=== PATIENT | female | born 1960 | race Caucasian/White ===

== ENCOUNTER → 2020-06-22 10:42 | Outpatient (BNVA) | payer OTHER, SELFPAY | PROVIDERS: PCP Nurse Practitioner Family; Referring Provider Family Medicine; Visit Provider Nurse Practitioner | DX: Z13.89 Encounter for screening for other disorder (principal) | CPT/HCPCS: Q3014 ==

== ENCOUNTER 2020-06-25 11:59 | Outpatient (REF) | payer OTHER, MEDICARE, SELFPAY | END 2020-06-25 12:00 | disposition home or self-care (01) | LOC: HO.LAB 11:59 | PROVIDERS: Visit Provider Internal Medicine | DX: Z20.828 Contact with and (suspected) exposure to other viral communicable diseases (principal) | CPT/HCPCS: C9803; U0003 ==

== ENCOUNTER 2020-08-02 15:34 | Outpatient (REF) | payer OTHER, SELFPAY | END 2020-08-02 15:35 | disposition home or self-care (01) | LOC: HO.LAB 15:34 | PROVIDERS: PCP Family Medicine; Visit Provider Internal Medicine | DX: Z20.822 Contact with and (suspected) exposure to COVID-19 (principal) | CPT/HCPCS: 36415; C9803; U0003 ==

== ENCOUNTER 2020-08-20 10:00 | Outpatient (RCR) | payer OTHER, SELFPAY | END 2020-08-20 10:45 | disposition other institution (70) | LOC: HO.PT 10:00 | PROVIDERS: PCP Family Medicine; Visit Provider Family Medicine | DX: M25.562 Pain in left knee (principal) | CPT/HCPCS: 97110; 97140; 97162; 97530 ==

== ENCOUNTER 2020-11-03 14:13 | Outpatient (REF) | payer OTHER, SELFPAY ==
--- NOTE | ~2020-11-03 | MM_ITS ---
EXAMINATION: MM DIAGNOSTIC DIGITAL BREAST TOMOSYNTHESIS, RIGHT US DIAGNOSTIC ULTRASOUND BREAST, RIGHT CLINICAL INFORMATION: Right breast pain for one month. Palpable fullness axilla. The lifetime risk of breast cancer based on the Tyrer-Cuzick Model is 8%. COMPARISON: Mammography: 03/01/2020, 02/24/2019, 02/19/2018 TECHNIQUE: Digital breast tomosynthesis is performed in both the craniocaudal and mediolateral oblique views along with computer-aided detection (CAD). Synthesized 2D images are generated from the tomosynthesis. Ultrasound right breast is targeted to the areas of clinical concern upper outer quadrant and axilla. Grayscale imaging and color Doppler are performed without and with harmonics. FINDINGS: There are scattered areas of fibroglandular density (ACR BI-RADS breast composition Category b). Fibroglandular and stromal densities are stable when compared with prior studies. There is no developing density or interval mass or architectural abnormality. No abnormal calcifications. No skin thickening or coarsening of the Julio Cesar's ligaments. Right axillary nodes are stable. No interval lymphadenopathy. Ultrasound demonstrates no cystic or solid mass or architectural abnormality. No lymphadenopathy. There is no skin thickening or edema tracking in the soft tissue planes. Results are discussed with the patient at time of visit. MM/MM tomosynthesis diagnostic RT IMPRESSION: 1. No mammographic evidence of malignancy or inflammatory changes. 2. Unremarkable ultrasound right breast and axilla. ASSESSMENT: BI-RADS 1: Negative RECOMMENDATION: 1. Patient should be managed based on the clinical impression. 2. Otherwise, routine annual screening mammography. This patient's information was entered into a reminder system with a target due date for their next mammogram.
== END 2020-11-03 14:14 | disposition home or self-care (01) ==
LOC: HO.MAMMO 14:13
PROVIDERS: Visit Provider Emergency Medicine
DX: N64.4 Mastodynia (principal); R22.31 Localized swelling, mass and lump, right upper limb
CPT/HCPCS: 76642; 77061; 77065

== ENCOUNTER → 2021-01-17 10:26 | Outpatient (BNVA) | payer OTHER, SELFPAY | PROVIDERS: PCP Family Medicine; Referring Provider Family Medicine; Visit Provider Nurse Practitioner | DX: K21.9 Gastro-esophageal reflux disease without esophagitis (principal); Z87.19 Personal history of other diseases of the digestive system; Z83.71 Family history of colonic polyps; Z98.890 Other specified postprocedural states | CPT/HCPCS: 99212 ==

== ENCOUNTER 2021-04-29 12:17 | Outpatient (REF) | payer OTHER, SELFPAY ==
--- NOTE | ~2021-04-29 | MM_ITS ---
EXAMINATION: BONE DENSITOMETRY CLINICAL INDICATION: Encounter for screening for osteoporosis. COMPARISON: None (current study represents initial baseline exam). TECHNIQUE: Using a [employer] DXA System (software version: 13.1) manufactured by [employer], dual-energy x-ray absorptiometry was performed of the lumbar spine and left hip. The images are of good technical quality. Summary results are attached. FINDINGS: AP SPINE L1-L2 (excluding L3 and L4): The data of L1-L4 has been changed to exclude the L3 and L4 vertebral bodies, because degenerative changes L3 and hardware at L3-L4 may cause overestimation of lumbar spine density. BMD 1.268 g/cm2, Z-score 1.2, T-score 0.9, normal. LEFT FEMUR, NECK: BMD 0.824 g/cm2, Z-score -0.8, T-score -1.5, osteopenia. LEFT FEMUR, TOTAL: BMD 0.973 g/cm2, Z-score 0.1, T-score -0.3, normal. IDENTIFIED RISK FACTORS: Rheumatoid arthritis, recurrent falls, height loss. Early menopause, secondary osteoporosis. HISTORY OF FRACTURE: None listed. MEDICATIONS: Calcium supplements or multivitamin, vitamin D. MM/XR DEXA axial skeleton IMPRESSION: 1. DIAGNOSIS: Osteopenia based on the lowest T-score value of -1.5 in the femoral neck applying World Health Organization criteria. 2. 10-YEAR FRACTURE RISK PREDICTION, FRAX: Major osteoporotic fracture (clinical spine, forearm, hip or shoulder) 5.1%. Hip fracture 0.4%. 3. Treatment Recommendations: NOF guidelines recommend consideration for treatment in postmenopausal women and men age 50 and older presenting with the following: -A hip or vertebral (clinical or morphometric) fracture. -T-score less than or equal to -2.5 at the femoral neck or spine after appropriate evaluation to exclude secondary causes. -Low bone mass at the hip or spine and a 10-year fracture probability by FRAX of greater than or equal to 3% for hip fracture or greater than or equal to 20% for major osteoporotic fracture based on the [place] adapted WHO algorithm. 4. Other Recommendations: All treatment decisions require clinical judgment and consideration of individual patient factors, including patient preferences, comorbidities, previous drug use, risk factors not captured in the FRAX model (e.g. frailty, falls, vitamin D deficiency, increased bone turnover, interval significant decline in bone density) and possible under or overestimation of fracture risk by FRAX. Additional medical evaluation for secondary cause of low bone mineral density may be appropriate. FUTURE SCAN RECOMMENDATION: People with diagnosed cases of osteoporosis or at high risk for fracture should have regular bone mineral density tests. For patients eligible for Medicare, routine testing is allowed once every 2 years. The testing frequency can be increased to one year for patients who have rapidly progressing disease, those who are receiving or discontinuing medical therapy to restore bone mass, or have additional risk factors.
== END 2021-04-29 12:18 | disposition home or self-care (01) ==
LOC: HO.MAMMO 12:17
PROVIDERS: PCP Family Medicine; Visit Provider Advanced Practice Midwife
DX: Z13.820 Encounter for screening for osteoporosis (principal); B20 Human immunodeficiency virus [HIV] disease; N95.1 Menopausal and female climacteric states
CPT/HCPCS: 77080

== ENCOUNTER → 2021-05-27 15:25 | Outpatient (BNVA) | payer OTHER, SELFPAY | PROVIDERS: PCP Family Medicine; Visit Provider Nurse Practitioner | DX: K21.9 Gastro-esophageal reflux disease without esophagitis (principal); Z87.19 Personal history of other diseases of the digestive system; Z83.71 Family history of colonic polyps | CPT/HCPCS: Q3014 ==

== ENCOUNTER 2021-10-24 14:13 | Outpatient (REF) | payer OTHER, SELFPAY ==
--- NOTE | ~2021-10-24 | MM_ITS ---
EXAMINATION: MM SCREENING DIGITAL BREAST TOMOSYNTHESIS, BILATERAL CLINICAL INFORMATION: Screening. Asymptomatic. The lifetime risk of breast cancer based on the Tyrer-Cuzick Model is 7%. COMPARISON: Mammography: 11/03/2020, 03/01/2020, 02/24/2019, 02/19/2018 TECHNIQUE: Digital breast tomosynthesis is performed in both the craniocaudal and mediolateral oblique views along with computer-aided detection (CAD). Synthesized 2D images are generated from the tomosynthesis. Additional right MLO view is provided. FINDINGS: There are scattered areas of fibroglandular density (ACR BI-RADS breast composition Category b). There are scattered bilateral fibroglandular densities similar to prior studies. Breast tissue composition borders on predominantly fatty. There is no developing density or interval mass or architectural abnormality. No abnormal calcifications. The skin contours are within the axilla are unremarkable. No significant changes. MM/MM tomosynthesis screening BI IMPRESSION: No mammographic evidence of malignancy. ASSESSMENT: BI-RADS 2: Benign RECOMMENDATION: Routine annual mammography screening. This patient's information was entered into a reminder system with a target due date for their next mammogram.
== END 2021-10-24 14:14 | disposition home or self-care (01) ==
LOC: HO.MAMMO 14:13
PROVIDERS: PCP Family Medicine; Visit Provider Family Medicine
DX: Z12.31 Encounter for screening mammogram for malignant neoplasm of breast (principal)
CPT/HCPCS: 77063; 77067

== ENCOUNTER 2022-06-02 10:07 | Outpatient (REF) | payer OTHER, SELFPAY ==
--- NOTE | ~2022-06-02 | MR_ITS ---
EXAMINATION: MR BRAIN WITHOUT CONTRAST CLINICAL INFORMATION: New onset memory impairment. COMPARISON: None available. TECHNIQUE: MRI of the brain was obtained using routine sequences without contrast. FINDINGS: No focal restricted diffusion is demonstrated to suggest acute or subacute cerebral ischemia. No evidence of acute or chronic hemorrhagic products on heme-sensitive imaging. Scattered periventricular and deep white matter T2 FLAIR hyperintensities most commonly seen with mild underlying microangiopathy. The ventricles are normal in morphology and size. No abnormal mass effect. No midline shift. Normal appearance of the pituitary gland. Normal positioning of the cerebellar tonsils. Normal arterial and venous vascular flow voids are present. Normal, homogeneous marrow signal. Mild mucosal thickening of the paranasal sinuses. No signal abnormalities within the mastoids. MR/MR head/brain wo con IMPRESSION: 1. No acute intracranial abnormalities. 2. Mild nonspecific white matter changes most commonly seen with mild underlying microangiopathy.
== END 2022-06-02 10:08 | disposition home or self-care (01) ==
LOC: HO.MRI 10:07
PROVIDERS: Visit Provider Family Medicine
DX: G31.84 Mild cognitive impairment of uncertain or unknown etiology (principal)
CPT/HCPCS: 70551

== ENCOUNTER → 2022-06-13 12:18 | Outpatient (REF) | payer OTHER, SELFPAY | LOC: HO.SL 12:18 | PROVIDERS: PCP Family Medicine; Visit Provider Psychiatry & Neurology Neurology | DX: G47.33 Obstructive sleep apnea (adult) (pediatric) (principal); G31.84 Mild cognitive impairment of uncertain or unknown etiology | CPT/HCPCS: 95806 ==

== ENCOUNTER 2022-11-28 12:45 | Emergency (ER) | payer OTHER, SELFPAY ==
--- NOTE | ~2022-11-28 | CT_ITS ---
EXAMINATION: CT HEAD WITHOUT CONTRAST CLINICAL INFORMATION: Headache, dizziness and hypertension COMPARISON: Previous brain MRI May 2022 TECHNIQUE: Contiguous axial imaging was performed from the skull base to vertex without intravenous administration of contrast. This CT examination was performed using dose optimization techniques as appropriate, variously including the following: *Automated exposure control *Adjustment of mA and/or kV according to patient size (this includes techniques or standardized protocols for targeted exams where dose is matched to indication/reason for exam; i.e. extremities or head) *Use of iterative reconstruction technique DLP: 624 mGy-cm FINDINGS: There is no evidence of an extra-axial collection. There is no evidence of intra or extra-axial hemorrhage. The ventricles and extra-axial CSF spaces are appropriate. Lemus-white matter differentiation is normal. No mass, mass effect or infarct. Review of bone windows is normal. Paranasal sinuses mastoid air cells and middle ears are clear. CT/CT head/brain wo IV con IMPRESSION: Unremarkable exam.
--- NOTE | 2022-11-28 12:51 | ED_ITS ---
HPI - General Adult General Chief complaint: General Medical <BRINDA Staples - Last Filed: 11/28/22 12:56> Stated complaint: high bp <BRINDA Staples - Last Filed: 11/28/22 12:56> Time Seen by Provider: 11/28/22 18:13 <BRINDA Staples - Last Filed: 11/28/22 12:56> Source: patient, RN notes reviewed and buttermaker continuous churn <Taco Thurston - Last Filed: 11/28/22 19:57> Mode of arrival: ambulatory <Taco Thurston - Last Filed: 11/28/22 19:57> Limitations: language barrier <Taco Thurston - Last Filed: 11/28/22 19:57> History of Present Illness HPI narrative: 61-year-old female past medical history significant for hypertension, IBS, GERD presents for evaluation of a headache. patient reports that she woke up this morning with a global headache. She reports she had some associated dizziness and some mild chest pain which has since resolved she checked her blood pressure earlier and found to be as high as 189/90. She reports having taken her amlodipine for her blood pressure earlier this morning denies any weakness, difficulty speaking <Taco Thurston - Last Filed: 11/28/22 19:57> Related Data Home medications: Home Medications Medication Instructions Recorded Confirmed albuterol sulfate 90 mcg/actuation 0 mcg inhalation 01/17/21 aerosol inhaler fluticasone propionate 230 2 puff inhalation BID 01/17/21 mcg-salmeterol 21 mcg/actuation HFA inhaler hydrochlorothiazide 25 mg tablet 25 mg PO DAILY 01/17/21 lidocaine 5 % topical ointment topical 01/17/21 loratadine 10 mg tablet 10 mg PO DAILY 01/17/21 naproxen 375 mg tablet 0 mg PO 01/17/21 zolpidem 10 mg tablet 10 mg PO BEDTIME PRN 01/17/21 amlodipine 10 mg tablet 10 mg PO DAILY 05/27/21 ascorbic acid (vitamin C) 500 mg 500 mg PO BID 05/27/21 tablet (Vitamin C) cholecalciferol (vitamin D3) 50 50 mcg PO DAILY 05/27/21 mcg (2,000 unit) tablet cyanocobalamin (vitamin B-12) 1,000 mcg PO DAILY 05/27/21 1,000 mcg tablet diazepam 5 mg tablet 5 mg PO TID PRN muscle spasm 05/27/21 fluticasone 250 mcg-salmeterol 50 1 ea inhalation BID 05/27/21 mcg/dose blistr powdr for inhalation fluticasone propionate 50 spray intranasal 05/27/21 mcg/actuation nasal spray,suspension montelukast 10 mg tablet 10 mg PO DAILY 05/27/21 tramadol 50 mg tablet 50 mg PO TID PRN 05/27/21 Previous Rx's Medication Instructions Recorded ipratropium 0.5 mg-albuterol 3 mg 3 ml inhalation Q4-6H PRN wheezing 08/26/20 (2.5 mg base)/3 mL nebulization 30 days #270 mL soln lipase 3,000-protease 1 cap PO .TIDAC 30 days #90 caps 01/17/21 9,500-amylase 15,000 unit capsule, delayed rel (Creon) docusate sodium 100 mg capsule 100 mg PO .DAILY WITH FOOD PRN 05/27/21 (Colace) constipation 30 days #30 caps famotidine 40 mg tablet 40 mg PO BEDTIME 30 days #30 tabs 05/27/21 psyllium husk (aspartame) 3.4 1 ea PO BID #1,040 grams 05/27/21 gram/5.8 gram oral powder (Metamucil Sugar-Free (aspartame)) fkzoyqdvpt-dyrtyyolkffhv-fykbfibo 1 cap PO TID PRN headache #15 caps 11/28/22 50 mg-300 mg-40 mg capsule (Fioricet) <BRINDA Staples - Last Filed: 11/28/22 12:56> Allergies/adverse reactions: Allergies Allergy/AdvReac Type Severity Reaction Status Date / Time Penicillins [PENICILLINS] Allergy Intermediate ITCHING Verified 05/27/21 15:28 sulfamethoxazole Allergy Intermediate RASH Verified 05/27/21 15:28 [From BACTRIM] trimethoprim [From BACTRIM] Allergy Intermediate RASH Verified 05/27/21 15:28 morphine [Morphine] Allergy Mild THROAT Verified 05/27/21 15:28 SWELLING Sulfa (Sulfonamide Allergy Mild RASH/HEADAC Verified 05/27/21 15:28 Antibiotics) HE acetaminophen [Percocet] Allergy Unknown redness, Verified 05/27/21 15:28 swelling, itchy oxycodone [Percocet] Allergy Unknown redness, Verified 05/27/21 15:28 swelling, itchy Biaxin Allergy Unknown itchy Uncoded 06/22/20 10:50 <BRINDA Staples - Last Filed: 11/28/22 12:56> Review of Systems Constitutional: Constitutional: Reports as per HPI, Denies chills, Denies fatigue, Denies fever(s) and Reports headache(s) <Taco Thurston - Last Filed: 11/28/22 19:57> ENT: Reports headache(s) <Taco Thurston - Last Filed: 11/28/22 19:57> Cardiovascular: Cardiovascular: Reports chest pain and Denies dyspnea <Taco Thurston - Last Filed: 11/28/22 19:57> Respiratory: Respiratory: Denies cough and Denies dyspnea <Taco Thurston - Last Filed: 11/28/22 19:57> Gastrointestinal: Gastrointestinal: Denies abdominal pain, Denies constipation and Denies vomiting <Taco Thurston - Last Filed: 11/28/22 19:57> Genitourinary: Genitourinary: Denies dysuria <Taco Thurston - Last Filed: 11/28/22 19:57> Neurologic: Reports headache(s) and Denies focal weakness <Taco Thurston - Last Filed: 11/28/22 19:57> Endocrine: Endocrine: Denies fatigue <Taco Thurston - Last Filed: 11/28/22 19:57> [facility] Past Medical History Surgical History: Surgical History History of back surgery History of carpal tunnel surgery Hx of cholecystectomy Hx of colonoscopy Hx of eye surgery Hx of tubal ligation <BRINDA Staples - Last Filed: 11/28/22 12:56> Family History Family History: Family History Father Stomach cancer Mother Alzheimer disease Type 2 diabetes mellitus Hyperlipidemia Family/Other HTN (hypertension) Sleep apnea Diabetes Maternal Uncle FH: prostate cancer Stomach cancer Alzheimer disease Paternal Uncle Stomach cancer <BRINDA Staples - Last Filed: 11/28/22 12:56> Social History Social History: Social History Alcohol intake: current Alcohol intake frequency: does not drink Advance Directives: No Advance Directives Information Provided: Yes <BRINDA Staples - Last Filed: 11/28/22 12:56> Physical Exam ED Vital Signs: Vital Signs - 24 hr 11/28/22 12:52 11/28/22 18:29 Temperature 97.1 F 98.2 F Pulse Rate 72 60 Respiratory Rate 18 16 Blood Pressure 144/82 H 128/70 Pulse Oximetry 98 97 Oxygen Delivery Method Room Air Room Air BMI result Body Mass Index 35.6 <BRINDA Staples - Last Filed: 11/28/22 12:56> Vital Signs - 24 hr 11/28/22 12:52 11/28/22 18:29 Temperature 97.1 F 98.2 F Pulse Rate 72 60 Respiratory Rate 18 16 Blood Pressure 144/82 H 128/70 Pulse Oximetry 98 97 Oxygen Delivery Method Room Air Room Air BMI result Body Mass Index 35.6 <Taco Thurston - Last Filed: 11/28/22 19:57> Const General: healthy appearing, comfortable, no acute distress, alert and awake <Taco Thurston - Last Filed: 11/28/22 19:57> Nutritional Appearance: well nourished <Taco Thurston - Last Filed: 11/28/22 19:57> Orientation/consciousness: patient oriented x3 <Taco Thurston - Last Filed: 11/28/22 19:57> HENMT Head: Yes normocephalic and Yes atraumatic <Taco Thurston - Last Filed: 11/28/22 19:57> Throat: Yes posterior oropharynx normal <Taco Thurston - Last Filed: 11/28/22 19:57> Eyes Eyelids: Yes eyelids normal <Taco Thurston - Last Filed: 11/28/22 19:57> Conjunctivae: conjunctivae normal <Taco Thurston - Last Filed: 11/28/22 19:57> Sclerae: sclerae normal <Taco Sam - Last Filed: 11/28/22 19:57> Corneas: corneas normal <Taco Last Filed: 11/28/22 19:57> Pupils: Equal, round and reactive pupils present <Taco [place]vale - Last Filed: 11/28/22 19:57> EOM: EOMs intact bilaterally < Last Filed: 11/28/22 19:57> Neck Neck: Yes full ROM < Last Filed: 11/28/22 19:57> Resp Effort & Inspection: normal respiratory effort, able to speak in complete sentences, no audible wheezes and not labored < Last Filed: 11/28/22 19:57> Auscultation: clear to auscultation bilaterally < Last Filed: 11/28/22 19:57> Cardio Rate: regular rate < Last Filed: 11/28/22 19:57> Rhythm: regular rhythm < Last Filed: 11/28/22 19:57> GI Inspection: No distended < Last Filed: 11/28/22 19:57> Palpation (GI): Soft to palpation, not firm, nontender, no guarding and not rigid < Last Filed: 11/28/22 19:57> Auscultation: normoactive bowel sounds <Taco O Last Filed: 11/28/22 19:57> Skin General skin exam: no rashes or lesions noted and elasticity normal <Taco Last Filed: 11/28/22 19:57> Neuro General: patient oriented x3 < Last Filed: 11/28/22 19:57> Cranial nerves: Yes CN's II-XII intact bilaterally, Yes Equal, round and reactive pupils present and Yes Bilaterally intact EOM present <Taco O Last Filed: 11/28/22 19:57> Cognition (Neuro): normal cognition <Taco Everardo Last Filed: 11/28/22 19:57> Extrem Other: Moving all extremities well without any obvious deformities <Taco Thurston - Last Filed: 11/28/22 19:57> Course Course Course Narrative: RME: 61-year-old female with a past medical history of GERD, IBS, presenting to the ED complaining of elevated BP at home, dizziness, chest pressure, GARCIA and nausea x this morning at 6-7AM. BP 189/90, admits to taking her BP meds today. denies taking anything for GARCIA. BP 144/82 EKG, labs, UA, CT head & orthostatics ordered Full HPI, ROS and PE to be performed by primary ED provider. <BRINDA Staples - Last Filed: 11/28/22 12:56> Reevaluation(s) Reevaluation #1: patient reports an allergy to Percocet, the computer populated Tylenol as an allergy due to the Percocet however the patient takes Tylenol separately without any issues therefore she was still given Fioricet <Taco Thurston - Last Filed: 11/28/22 19:57> Medications Administered Discontinued Medications Generic Name Dose Route Start Last Admin Trade Name Freq PRN Reason Stop Dose Admin Acetaminophen/Butalbital/Caffeine 1 tab 11/28/22 18:42 11/28/22 18:57 Butalb/Acetamin/Caff 50/325/40 Tablet PO 11/28/22 18:43 1 tab ONCE ONE Administration <BRINDA Staples - Last Filed: 11/28/22 12:56> Medications Administered Discontinued Medications Generic Name Dose Route Start Last Admin Trade Name Freq PRN Reason Stop Dose Admin Acetaminophen/Butalbital/Caffeine 1 tab 11/28/22 18:42 11/28/22 18:57 Butalb/Acetamin/Caff 50/325/40 Tablet PO 11/28/22 18:43 1 tab ONCE ONE Administration <Taco Thurston - Last Filed: 11/28/22 19:57> Medical Decision Making Medical Decision Making MDM Narrative: 61-year-old female presents for evaluation of headache, dizziness, high blood pressure and chest pain. EKG is sinus rhythm rate of 70 beats per minute. She does have T-wave inversions in lead 3. her troponin was negative and this was drawn over 3 hours after the onset of her symptoms. The patient is currently chest pain-free her neuro exam is benign, her CT scan of brain was reassuring. We will treat the patient's headache with Fioricet and she can likely be discharged with same. She has follow-up with her PCP in 6 days. <Taco Thurston - Last Filed: 11/28/22 19:57> Differential Diagnosis acute headache Hypertension anxiety Dizziness CVA less likely <Taco Thurston - Last Filed: 11/28/22 19:57> Lab Data MDM Lab Attestation statement: I reviewed the patient's lab results. <aTco Thurston - Last Filed: 0 11/28/22 19:57> Result Diagrams: 11/28/22 13:13 11/28/22 13:13 <BRINDA Staples - Last Filed: 11/28/22 12:56> Labs: Lab Results 11/28/22 11/28/22 11/28/22 Range/Units 13:13 13:13 13:13 WBC 9.5 (4.8-10.8) X10*3/uL RBC 4.15 L (4.20-5.50) X10*6/uL Hgb 13.1 (12.0-16.0) g/dl Hct 38.2 (37.0-47.0) % MCV 92.0 (80.0-98.0) fL MCH 31.6 (27.0-33.0) pg MCHC 34.3 (31.0-35.0) g/dl RDW 12.4 (11.0-16.0) % Plt Count 210 (160-400) X10*3/uL MPV 10.6 (9.4-12.3) fL Immature Gran % (Auto) 0.4 (0.0-0.4) % Neut % (Auto) 75.7 H (45-73) % Lymph % (Auto) 17.9 L (20-40) % [place] % (Auto) 4.0 (2-11) % Eos % (Auto) 1.5 (0-4) % Baso % (Auto) 0.5 (0-2) % Lymph # (Auto) 1.7 (1.2-4.9) X10*3/uL [place] # (Auto) 0.4 (0.1-1.2) X10*3/uL Eos # (Auto) 0.1 (0.0-0.4) X10*3/uL Baso # (Auto) 0.1 (0.0-0.2) X10*3/uL Abs Immat Gran (auto) 0.04 H (0.00-0.03) X10*3/uL Absolute Neuts (auto) 7.2 (2.0-8.3) x10*3/uL Absolute Nucleated RBC 0.000 (0.0-0.012) X10*3/uL Nucleated RBC % (auto) 0.0 (0.0-0.2) /100WBC PT 10.7 (10.0-13.1) SEC INR 0.9 (0.9-1.1) Sodium 138 (135-145) mmol/L Potassium 3.8 (3.3-5.1) mmol/L Chloride 106 (96-108) mmol/L Carbon Dioxide 25 (22-29) mmol/L Anion Gap 11 L (12-20) BUN 11 (9-16) mg/dL Creatinine 0.94 (0.5-1.4) mg/dL Estim Creat Clear Calc 66.4 Estimated GFR > 60 Random Glucose 174 H (60-115) mg/dL Calcium 8.9 (8.4-10.2) mg/dL Magnesium 1.8 (1.6-2.6) mg/dL Total Bilirubin 0.9 (0.0-1.0) mg/dL Direct Bilirubin 0.2 (0.0-0.5) mg/dL AST 13 (5-31) U/L ALT 11 (0-31) U/L Alkaline Phosphatase 86 (39-117) U/L Troponin I High Sens (<3.5-17.0) ng/L Total Protein 6.9 (6.5-8.0) g/dL Albumin 3.9 (3.5-5.0) g/dL 11/28/22 Range/Units 13:13 WBC (4.8-10.8) X10*3/uL RBC (4.20-5.50) X10*6/uL Hgb (12.0-16.0) g/dl Hct (37.0-47.0) % MCV (80.0-98.0) fL MCH (27.0-33.0) pg MCHC (31.0-35.0) g/dl RDW (11.0-16.0) % Plt Count (160-400) X10*3/uL MPV (9.4-12.3) fL Immature Gran % (Auto) (0.0-0.4) % Neut % (Auto) (45-73) % Lymph % (Auto) (20-40) % [place] % (Auto) (2-11) % Eos % (Auto) (0-4) % Baso % (Auto) (0-2) % Lymph # (Auto) (1.2-4.9) X10*3/uL [place] # (Auto) (0.1-1.2) X10*3/uL Eos # (Auto) (0.0-0.4) X10*3/uL Baso # (Auto) (0.0-0.2) X10*3/uL Abs Immat Gran (auto) (0.00-0.03) X10*3/uL Absolute Neuts (auto) (2.0-8.3) x10*3/uL Absolute Nucleated RBC (0.0-0.012) X10*3/uL Nucleated RBC % (auto) (0.0-0.2) /100WBC PT (10.0-13.1) SEC INR (0.9-1.1) Sodium (135-145) mmol/L Potassium (3.3-5.1) mmol/L Chloride (96-108) mmol/L Carbon Dioxide (22-29) mmol/L Anion Gap (12-20) BUN (9-16) mg/dL Creatinine (0.5-1.4) mg/dL Estim Creat Clear Calc Estimated GFR Random Glucose (60-115) mg/dL Calcium (8.4-10.2) mg/dL Magnesium (1.6-2.6) mg/dL Total Bilirubin (0.0-1.0) mg/dL Direct Bilirubin (0.0-0.5) mg/dL AST (5-31) U/L ALT (0-31) U/L Alkaline Phosphatase (39-117) U/L Troponin I High Sens < 2.7 (<3.5-17.0) ng/L Total Protein (6.5-8.0) g/dL Albumin (3.5-5.0) g/dL <BRINDA Staples - Last Filed: 11/28/22 12:56> Lab Results 11/28/22 11/28/22 11/28/22 Range/Units 13:13 13:13 13:13 WBC 9.5 (4.8-10.8) X10*3/uL RBC 4.15 L (4.20-5.50) X10*6/uL Hgb 13.1 (12.0-16.0) g/dl Hct 38.2 (37.0-47.0) % MCV 92.0 (80.0-98.0) fL MCH 31.6 (27.0-33.0) pg MCHC 34.3 (31.0-35.0) g/dl RDW 12.4 (11.0-16.0) % Plt Count 210 (160-400) X10*3/uL MPV 10.6 (9.4-12.3) fL Immature Gran % (Auto) 0.4 (0.0-0.4) % Neut % (Auto) 75.7 H (45-73) % Lymph % (Auto) 17.9 L (20-40) % [place] % (Auto) 4.0 (2-11) % Eos % (Auto) 1.5 (0-4) % Baso % (Auto) 0.5 (0-2) % Lymph # (Auto) 1.7 (1.2-4.9) X10*3/uL [place] # (Auto) 0.4 (0.1-1.2) X10*3/uL Eos # (Auto) 0.1 (0.0-0.4) X10*3/uL Baso # (Auto) 0.1 (0.0-0.2) X10*3/uL Abs Immat Gran (auto) 0.04 H (0.00-0.03) X10*3/uL Absolute Neuts (auto) 7.2 (2.0-8.3) x10*3/uL Absolute Nucleated RBC 0.000 (0.0-0.012) X10*3/uL Nucleated RBC % (auto) 0.0 (0.0-0.2) /100WBC PT 10.7 (10.0-13.1) SEC INR 0.9 (0.9-1.1) Sodium 138 (135-145) mmol/L Potassium 3.8 (3.3-5.1) mmol/L Chloride 106 (96-108) mmol/L Carbon Dioxide 25 (22-29) mmol/L Anion Gap 11 L (12-20) BUN 11 (9-16) mg/dL Creatinine 0.94 (0.5-1.4) mg/dL Estim Creat Clear Calc 66.4 Estimated GFR > 60 Random Glucose 174 H (60-115) mg/dL Calcium 8.9 (8.4-10.2) mg/dL Magnesium 1.8 (1.6-2.6) mg/dL Total Bilirubin 0.9 (0.0-1.0) mg/dL Direct Bilirubin 0.2 (0.0-0.5) mg/dL AST 13 (5-31) U/L ALT 11 (0-31) U/L Alkaline Phosphatase 86 (39-117) U/L Troponin I High Sens (<3.5-17.0) ng/L Total Protein 6.9 (6.5-8.0) g/dL Albumin 3.9 (3.5-5.0) g/dL 11/28/22 Range/Units 13:13 WBC (4.8-10.8) X10*3/uL RBC (4.20-5.50) X10*6/uL Hgb (12.0-16.0) g/dl Hct (37.0-47.0) % MCV (80.0-98.0) fL MCH (27.0-33.0) pg MCHC (31.0-35.0) g/dl RDW (11.0-16.0) % Plt Count (160-400) X10*3/uL MPV (9.4-12.3) fL Immature Gran % (Auto) (0.0-0.4) % Neut % (Auto) (45-73) % Lymph % (Auto) (20-40) % [place] % (Auto) (2-11) % Eos % (Auto) (0-4) % Baso % (Auto) (0-2) % Lymph # (Auto) (1.2-4.9) X10*3/uL [place] # (Auto) (0.1-1.2) X10*3/uL Eos # (Auto) (0.0-0.4) X10*3/uL Baso # (Auto) (0.0-0.2) X10*3/uL Abs Immat Gran (auto) (0.00-0.03) X10*3/uL Absolute Neuts (auto) (2.0-8.3) x10*3/uL Absolute Nucleated RBC (0.0-0.012) X10*3/uL Nucleated RBC % (auto) (0.0-0.2) /100WBC PT (10.0-13.1) SEC INR (0.9-1.1) Sodium (135-145) mmol/L Potassium (3.3-5.1) mmol/L Chloride (96-108) mmol/L Carbon Dioxide (22-29) mmol/L Anion Gap (12-20) BUN (9-16) mg/dL Creatinine (0.5-1.4) mg/dL Estim Creat Clear Calc Estimated GFR Random Glucose (60-115) mg/dL Calcium (8.4-10.2) mg/dL Magnesium (1.6-2.6) mg/dL Total Bilirubin (0.0-1.0) mg/dL Direct Bilirubin (0.0-0.5) mg/dL AST (5-31) U/L ALT (0-31) U/L Alkaline Phosphatase (39-117) U/L Troponin I High Sens < 2.7 (<3.5-17.0) ng/L Total Protein (6.5-8.0) g/dL Albumin (3.5-5.0) g/dL <Taco Thurston - Last Filed: 11/28/22 19:57> Independent Interpretation I performed an independent interpretation of an: EKG ( sinus rhythm rate of 70 beats per minute. No ST segment elevations or depressions) <Taco Thurston - Last Filed: 11/28/22 19:57> Radiology Impression Discussion of test interpretation with radiology: I have reviewed the radiologist's reading. <Taco Thurston - Last Filed: 11/28/22 19:57> Discharge Plan Discharge Clinical Impression: Acute headache <BRINDA Staples - Last Filed: 11/28/22 12:56> Patient Disposition: Home, Self-Care <BRINDA Staples - Last Filed: 11/28/22 12:56> Instructions: Acute Headache (ED) <BRINDA Staples - Last Filed: 11/28/22 12:56> Additional Instructions: your workup today was reassuring. This includes your CT scan of your head, chest x-ray, blood work and EKG you may take Fioricet as needed for any further headaches take your blood pressure medication as prescribed follow-up with your primary doctor as planned <BRINDA Staples - Last Filed: 11/28/22 12:56> Prescriptions: New yeexwoscnc-aahvnirannibf-mtgw [Fioricet] 50-300-40 mg capsule 1 cap PO TID PRN (Reason: headache) Qty: 15 0RF No Action ipratropium-albuterol 0.5 mg-3 mg(2.5 mg base)/3 mL solution for nebulization 3 ml inhalation Q4-6H PRN (Reason: wheezing) 30 Days Qty: 270 6RF lidocaine 5 % ointment topical loratadine 10 mg tablet 10 mg PO DAILY albuterol sulfate 90 mcg/actuation HFA aerosol inhaler 0 mcg inhalation zolpidem 10 mg tablet 10 mg PO BEDTIME PRN hydrochlorothiazide 25 mg tablet 25 mg PO DAILY naproxen 375 mg tablet 0 mg PO Advair HFA 230-21 mcg/actuation HFA aerosol inhaler 2 puff inhalation BID Creon 3,000-9,500- 15,000 unit capsule,delayed release(DR/EC) 1 cap PO .TIDAC 30 Days Qty: 90 6RF Rx Instructions: do not exceed 10,000 unit/kg lipase per 24 hrs cholecalciferol (vitamin D3) 50 mcg (2,000 unit) tablet 50 mcg PO DAILY diazepam 5 mg tablet 5 mg PO TID PRN (Reason: muscle spasm) amlodipine 10 mg tablet 10 mg PO DAILY ascorbic acid (vitamin C) [Vitamin C] 500 mg tablet 500 mg PO BID montelukast 10 mg tablet 10 mg PO DAILY cyanocobalamin (vitamin B-12) 1,000 mcg tablet 1,000 mcg PO DAILY fluticasone propionate 50 mcg/actuation spray,suspension intranasal fluticasone propion-salmeterol 250-50 mcg/dose blister with device 1 ea inhalation BID tramadol 50 mg tablet 50 mg PO TID PRN famotidine 40 mg tablet 40 mg PO BEDTIME 30 Days Qty: 30 6RF Metamucil Sugar-Free (aspart) 3.4 gram/5.8 gram powder 1 ea PO BID Qty: 1040 6RF docusate sodium [Colace] 100 mg capsule 100 mg PO .DAILY WITH FOOD PRN (Reason: constipation) 30 Days Qty: 30 0RF Hold Instructions: Doctor's Order <BRINDA Staples - Last Filed: 11/28/22 12:56>
[2022-11-28 12:52] VITALS: BP 144/82; PULSE 72; RESP 18; TEMP 36.2; O2SAT 98; BMI 35.6
--- NOTE | 2022-11-28 12:54 | ECG_ITS ---
Test Reason : CHEST PAIN Blood Pressure : / mmHG Vent. Rate : 070 BPM Atrial Rate : 070 BPM P-R Int : 130 ms QRS Dur : 078 ms QT Int : 386 ms P-R-T Axes : 003 -06 -08 degrees QTc Int : 416 ms Normal sinus rhythm Minimal voltage criteria for LVH, may be normal variant ( R in aVL ) Nonspecific T wave abnormality Abnormal ECG When compared with ECG of 29-JUL-2019 12:48, Nonspecific T wave abnormality now evident in Anterolateral leads Referred By: Rae Ruiz Electronically Signed By:DARIO SILVERMAN
[2022-11-28 13:19] LABS: MANUAL DIFF FLAG NO
[2022-11-28 13:21] LABS: Basophils Absolute Auto 0.1 X10*3/uL (0.0-0.2); Basophils Percent Auto 0.5 % (0-2); Eosinophils Absolute Auto 0.1 X10*3/uL (0.0-0.4); Eosinophils Percent Auto 1.5 % (0-4); Hematocrit 38.2 % (37.0-47.0); Hemoglobin 13.1 g/dl (12.0-16.0); Imm Gran Abs Auto 0.04 X10*3/uL (0.00-0.03); Imm Gran Pct Auto 0.4 % (0.0-0.4); Lymphocytes Absolute Auto 1.7 X10*3/uL (1.2-4.9); Lymphocytes Percent Auto 17.9 % (20-40); Mean Corpuscular HGB Conc 34.3 g/dl (31.0-35.0); Mean Corpuscular Hemoglobin 31.6 pg (27.0-33.0); Mean Platelet Volume 10.6 fL (9.4-12.3); Monocytes Absolute Auto 0.4 X10*3/uL (0.1-1.2); Neutrophils Absolute Auto 7.2 x10*3/uL (2.0-8.3); Neutrophils Percent Auto 75.7 % (45-73); Platelet Count 210 X10*3/uL (160-400); Red Blood Count 4.15 X10*6/uL (4.20-5.50); Red Cell Distribution Width 12.4 % (11.0-16.0); White Blood Count 9.5 X10*3/uL (4.8-10.8)
[2022-11-28 13:27] LABS: INTERNATIONAL NORM RATIO 0.9 (0.9-1.1); Prothrombin Time 10.7 SEC (10.0-13.1)
[2022-11-28 13:36] LABS: Alanine Aminotransferase 11 U/L (0-31); Albumin Level 3.9 g/dL (3.5-5.0); Alkaline Phosphatase 86 U/L (39-117); Anion Gap 11 (12-20); Aspartate Amino Transferase 13 U/L (5-31); Bilirubin Direct 0.2 mg/dL (0.0-0.5); Bilirubin Total 0.9 mg/dL (0.0-1.0); Blood Urea Nitrogen 11 mg/dL (9-16); Calcium 8.9 mg/dL (8.4-10.2); Carbon Dioxide 25 mmol/L (22-29); Chloride 106 mmol/L (96-108); Creatinine Clr Calc Pharmacy 66.4; Estimated Glomerular Filt Rate > 60; Glucose Random 174 mg/dL (60-115); Magnesium 1.8 mg/dL (1.6-2.6); Potassium 3.8 mmol/L (3.3-5.1); Sodium 138 mmol/L (135-145); Total Protein 6.9 g/dL (6.5-8.0)
[2022-11-28 13:47] LABS: Troponin-I High Sensitivity < 2.7 ng/L (<3.5-17.0)
[2022-11-28 18:29] VITALS: BP 128/70; PULSE 60; RESP 16; TEMP 36.8; O2SAT 97
--- OUTSIDE RECORDS SUMMARY | 2022-11-28 18:55 | XMS_ITS | Continuity of Care Document ---
Author Name Unknown Organization [facility] Address Unknown Care Team Providers Care Mathematical Scientist Name Role Phone Hector LAWS, Margi Primary Care Physician [place] [facility] [place]22 [facility] Attending Physician: Admtr, Cedric Admitting Physician: Admtr, Cedric Referring Physician: Admtr, Ar8 Allergies, Adverse Reactions, Alerts Substance Reaction Severity Status sulfamethoxazole itching, headache Active trimethoprim unkown Active morphine swelling Active sulfa drugs itcing, headache Active Bactrim rash Active Percocet 5/325 breathing problems Active OxyCODONE Hydrochloride swelling Acti ve Medications Albuterol (Eqv-ProAir HFA) 2 puffs, Inhalation, Every 6 hours, PRN Wheezing/Shortness of Breath, 0 Refills, Maintenance, 05/19/21 12:10:00 EDT, Partial fill upon patient request if the prescription is for a schedule II opioid drug. Start Date: 05/19/21 Status: Ordered albuterol 90 mcg/inh inhalation aerosol See Instructions, 0, 0, 03/21/07 14:04:40, Print MARIUM Number, Constant Indicator Start Date: 03/21/07 Status: Ordered amlodipine-valsartan 10 mg-160 mg oral tablet 1 tablet, By Mouth, Daily, # 30 tablet, 0 Refills, Maintenance, 01/10/22 16:24:00 EDT, Tablet, Partial fill upon patient request if the prescription is for a schedule II opioid drug. Start Date: 01/10/22 Status: Ordered Capzasin-HP 0.1% topical cream Topically, Daily, may use twice a day at times, 0 Refills, Maintenance, 05/19/21 12:11:00 EDT, Partial fill upon patient request if the prescription is for a schedule II opioid drug. Start Date: 05/19/21 Status: Ordered diazepam 5 mg oral tablet 5 mg, 1, tablet, By Mouth, 3 times a day, PRN, # 21 tablet, Refills 0, Tot. Refills 0, Maintenance,Spasm, 05/25/21 7:34:00 EDT, Route to Pharmacy Electronically, [facility] #[id number], Partialfill upon patient request if the prescription is fo... Start Date: 05/25/21 Status: Ordered Docusate = 100 mg, By Mouth, 2 times a day, 0 Refills, Maintenance, 05/19/21 12:00:00 EDT, Partial fill uponpatient request if the prescription is for a schedule II opioid drug. Start Date: 05/19/21 Status: Ordered estradiol 0.1 mg/g vaginal cream = 1 Gm, Vaginally, Every Sunday and , # 42.5 Gm, 3 Refills, Maintenance, 05/13/21 13:42:00 EDT, [facility] #[id number], Partial fill upon patient request if the prescription is for a schedule II opioid drug., 157.48, cm, 05/10/21 13:54:00... Start Date: 05/13/21 Status: Ordered Flonase 50 mcg/inh nasal spray 2 sprays, Nares, Both, Daily in AM, 0 Refills, Maintenance, 05/19/21 12:09:00 EDT, [place], Partial fill upon patient request if the prescription is for a schedule II opioid drug. Start Date: 05/19/21 Status: Ordered Flovent HFA 110 mcg/inh inhalation aerosol with adapter 2 puffs, Inhalation, 2 times a day, # 12 Gm, 0 Refills Start Date: 06/11/09 Stop Date: 07/11/09 Status: Ordered hydrochlorothiazide 25 mg oral tablet 25 mg, 1, tablet, By Mouth, Daily, # 30 tablet, Refills 0, Maintenance, 05/19/21 12:01:00 EDT, Partial fill upon patient request if the prescription is for a schedule II opioid drug. Start Date: 05/19/21 Status: Ordered lidocaine 0.5% topical gel 1 application, Topically, Daily, may use up to 3 times a day, # 120 Gm, 0 Refills, Maintenance, 05/19/21 12:12:00 EDT, [place], Partial fill upon patient request if the prescription is for a schedule II opioid drug. Start Date: 05/19/21 Status: Ordered Loratadine 10 mg, By Mouth, Daily, Refills 0, Maintenance, 05/19/21 12:02:00 EDT, Partial fill upon patient request if the prescription is for a schedule II opioid drug. Start Date: 05/19/21 Status: Ordered metoprolol 50 mg oral tablet, extended release 50 mg, 1, tablet, By Mouth, Daily at bedtime, # 90 tablet, Refills 0, Maintenance, 05/19/21 12:04:00 EDT, Partial fill upon patient request if the prescription is for a schedule II opioid drug. Start Date: 05/19/21 Status: Ordered montelukast 10 mg oral tablet 10 mg, 1, tablet, By Mouth, Daily in PM, # 90 tablet, Refills 0, Maintenance, 05/19/21 12:04:00 EDT, Partial fill upon patient request if the prescription is for a schedule II opioid drug. Start Date: 05/19/21 Status: Ordered Odefsey oral tablet 1 tablet, By Mouth, Daily, # 30 tablet, 0 Refills, Maintenance, 05/19/21 12:06:00 EDT, Tablet, Partial fill upon patient request if the prescription is for a schedule II opioid drug. Start Date: 05/19/21 Status: Ordered trazodone 50 mg oral tablet 25 mg, 0.5, tablet, By Mouth, Daily at bedtime, 0 Refills Start Date: 03/21/07 Status: Ordered trospium 60 mg oral capsule, extended release 1 capsule = 60 mg, By Mouth, Daily in AM, # 30 capsule, 5 Refills, Maintenance, 10/24/21 12:49:00 EDT, CR Capsule, [facility] #[id number], Partial fill upon patient request if the prescription is for a schedule II opioid drug., 154.9, cm, ... Start Date: 10/24/21 Status: Ordered Tylenol Extra Strength 500 mg oral tablet 2 tablet = 1,000 mg, By Mouth, Every 4 hours, PRN for pain, # 120 tablet, 0 Refills, Maintenance, 05/19/21 12:06:00 EDT, Tablet, Partial fill upon patient request if the prescription is for a schedule II opioid drug. Start Date: 05/19/21 Status: Ordered vibegron 75 mg oral tablet 1 tablet = 75 mg, By Mouth, Daily, # 30 tablet, 6 Refills, Maintenance, 10/13/21 11:16:00 EDT, Tablet, [facility] #[id number], Partial fill upon patient request if the prescription is for a schedule II opioid drug., 154.9, cm, 06/23/21 14:47:00 E... Start Date: 10/13/21 Status: Ordered Vitamin B12 1000 mcg oral tablet 1 tablet = 1,000 mcg, By Mouth, Daily, # 90 tablet, 0 Refills, Maintenance, 05/19/21 12:03:00 EDT, Tablet, Partial fill upon patient request if the prescription is for a schedule II opioid drug. Start Date: 05/19/21 Status: Ordered Vitamin C 500 mg oral tablet 1 tablet = 500 mg, By Mouth, Daily, # 30 tablet, 0 Refills, Maintenance, 05/19/21 12:03:00 EDT, Tablet, Partial fill upon patient request if the prescription is for a schedule II opioid drug. Start Date: 05/19/21 Status: Ordered Vitamin D3 2000 intl units oral capsule 1 capsule = 50 mcg, By Mouth, Daily, # 60 capsule, 0 Refills, Maintenance, 05/19/21 12:03:00 EDT, Caps[place], Partial fill upon patient request if the prescription is for a schedule II opioid drug. Start Date: 05/19/21 Status: Ordered Zolpidem = 10 mg, By Mouth, Daily at bedtime, 0 Refills, Maintenance, 05/19/21 12:05:00 EDT, Partial fill upon patient request if the prescription is for a schedule II opioid drug. Start Date: 05/19/21 Status: Ordered Problem List Condition Effective Dates Status Health Status Inform ant Allergic rhinitis(Confirmed) Active Asthma(Confirmed) Active Depression(Confirmed) Active Rash(Confirmed) Active GERD (gastroesophageal reflu x disease)(Confirmed) Active HIV disease(Confirmed) Active Hyperlipidemia(Confirmed) Active Myalgia(Confirmed) Active Myositis(Confirmed) Active Obese class I(Confirmed) Active Diabetes mellitus type 2, uncomplicated(Confirmed) Active Social History Social History Type Response Smoking Status Never (less than 100 in lifetime) entered on: 05/13/21 Sex
--- OUTSIDE RECORDS SUMMARY | 2022-11-28 18:55 | XMS_ITS | Continuity of Care Document ---
Author Name Unknown Organization [facility] Address Unknown Care Team Providers Care Salesperson Burial Needs Name Role Phone Margi Young MD Primary Care Physician Encounter [facility] [place] R [id number] Date(s): 05/10/21 - 05/17/21 [facility] Attending Physician: John VELAZQUEZ, Magaly Johnson Referring Physician: Margi Young MD Allergies, Adverse Reactions, Alerts Substance Reaction Severity Status acetaminophen Active sulfamethoxazole Active trimethoprim Active morphine Active sulfa drugs Active Bactrim Active Percocet 5/325 breathing problems Active OxyCODONE Hydrochloride Acti ve Medications albuterol 90 mcg/inh inhalation aerosol See Instructions, 0, 0, 03/21/07 14:04:40, Print MARIUM Number, Constant Indicator Start Date: 03/21/07 Status: Ordered Celexa 20 mg oral tablet 20, mg, 1, tablet, By Mouth, Daily, 0, 0, 03/21/07 14:03:02, Print MARIUM Number, [id number], Constant Indicator Start Date: 03/21/07 Status: Ordered Elavil Tablet 50 mg, By Mouth, Daily at bedtime, 06/11/09 8:55:50 Start Date: 06/11/09 Stop Date: 07/10/09 Status: Ordered estradiol 0.1 mg/g vaginal cream = 1 Gm, Vaginally, Every Sunday and , # 42.5 Gm, 3 Refills, Maintenance, 05/13/21 13:42:00 EDT, [facility] #[id number], Partial fill upon patient request if the prescription is for a schedule II opioid drug., 157.48, cm, 05/10/21 13:54:00... Start Date: 05/13/21 Status: Ordered Flovent HFA 110 mcg/inh inhalation aerosol with adapter 2 puffs, Inhalation, 2 times a day, # 12 Gm, 0 Refills Start Date: 06/11/09 Stop Date: 07/11/09 Status: Ordered Isentress 400 mg oral tablet 1 tablet, By Mouth, 2 times a day, # 60 tablet, 0 Refills Start Date: 06/11/09 Stop Date: 07/11/09 Status: Ordered Naprosyn 375 mg oral tablet = 375 mg, By Mouth, 2 times a day, PRN as needed for pain, 0 Refills Start Date: 06/11/09 Stop Date: 06/25/09 Status: Ordered trazodone 50 mg oral tablet 50, mg, 1, tablet, By Mouth, Daily at bedtime, 0, 0, 03/21/07 14:01:55, Print MARIUM Number, 144, Constant Indicator Start Date: 03/21/07 Status: Ordered Truvada oral tablet 1 tablet, By Mouth, Daily, 0 Refills Start Date: 06/11/09 Stop Date: 07/11/09 Status: Ordered Problem List Condition Effective Dates Status Health Status Inform ant Allergic rhinitis(Confirmed) Active Asthma(Confirmed) Active Depression(Confirmed) Active Rash(Confirmed) Active GERD (gastroesophageal reflu x disease)(Confirmed) Active HIV disease(Confirmed) Active Hyperlipidemia(Confirmed) Active Myalgia(Confirmed) Active Myositis(Confirmed) Active Diabetes mellitus type 2, uncomplicated(Confirmed) Active Vital Signs Most recent to oldest [Reference Range]: 1 Height 157.48 cm (05/10/21 1:54 PM) Weight 87 kg (05/10/21 1:54 PM) Pulse Rate [55-90 bpm] 80 bpm (05/10/21 1:54 PM) Body Mass Index [18.5-24.99] 35.08 *>HHI* (05/10/21 1:54 PM) Blood Pressure [90-138/55-84 mm Hg] 160/ 80mm Hg *H* (05/10/21 1:54 PM) Respiratory Rate [16-30 br/min] 14 br/mi n *L* (05/10/21 1:54 PM) Temperature [96.8-100.4 DegF] 98.4 DegF (05/10/21 1:54 PM) Social History Social History Type Response Smoking Status Never (less than 100 in lifetime) entered on: 05/13/21 Sex
--- OUTSIDE RECORDS SUMMARY | 2022-11-28 18:55 | XMS_ITS | Continuity of Care Document ---
Author Name Unknown Organization [facility] Address Unknown Care Team Providers Care White Metal Corrosion Proofer Name Role Phone Hector LAWS, Margi Primary Care Physician [place] [facility] [place]): 07/11/21 - 08/10/21 [facility] Allergies, Adverse Reactions, Alerts Substance Reaction Severity Status sulfamethoxazole Active trimethoprim Active morphine Active sulfa drugs Active Bactrim Active Percocet 5/325 breathing problems Active OxyCODONE Hydrochloride Acti ve Medications Albuterol (Eqv-ProAir HFA) 2 puffs, Inhalation, Every 6 hours, PRN Wheezing/Shortness of Breath, 0 Refills, Maintenance, 05/19/21 12:10:00 EDT, Partial fill upon patient request if the prescription is for a schedule II opioid drug. Start Date: 05/19/21 Status: Ordered albuterol 90 mcg/inh inhalation aerosol See Instructions, 0, 0, 03/21/07 14:04:40, Print MARIUM Number, Constant Indicator Start Date: 03/21/07 Status: Ordered amLODIPine 10 mg oral tablet 10 mg, 1, tablet, By Mouth, Daily, # 30 tablet, Refills 0, Maintenance, 05/19/21 12:00:00 EDT, Partial fill upon patient request if the prescription is for a schedule II opioid drug. Start Date: 05/19/21 Status: Ordered Capzasin-HP 0.1% topical cream Topically, [...] 05/25/21 7:34:00 EDT, Route to Pharmacy Electronically, [facility] #[id number], Partialfill upon patient request if the prescription [...] Gm, 3 Refills, Maintenance, 05/13/21 13:42:00 EDT, [facility] #[id number], Partial fill upon patient request if the prescription is for a schedule II opioid drug., 157.48, cm, 05/10/21 13:54:00... Start Date: 05/13/21 Status: Ordered Flonase 50 mcg/inh nasal spray 2 sprays, Nares, Both, Daily in AM, 0 Refills, Maintenance, 05/19/21 12:09:00 EDT, [place], Partial fill upon patient request if the [...] opioid drug. Start Date: 05/19/21 Status: Ordered meloxicam 15 mg oral tablet 1 tablet = 15 mg, By Mouth, Daily, PRN Pain , Moderate, # 30 tablet, 0 Refills, Maintenance, 05/19/21 [...] 0 Refills Start Date: 03/21/07 Status: Ordered Tylenol Extra Strength 500 mg oral tablet 2 tablet = 1,000 mg, By Mouth, Every 4 hours, PRN for pain, # 120 tablet, 0 Refills, Maintenance, 05/19/21 12:06:00 EDT, Tablet, Partial fill upon patient request if the prescription is for a schedule II opioid drug. Start Date: 05/19/21 Status: Ordered Vitamin B12 1000 mcg oral [...] Active Myalgia(Confirmed) Active Myositis(Confirmed) Active Obese class II(Confirmed) Active Diabetes mellitus type 2, uncomplicated(Confirmed) Active Social History Social History Type Response Smoking Status Never (less than 100 in lifetime) entered on: 05/13/21 Sex
--- OUTSIDE RECORDS SUMMARY | 2022-11-28 18:55 | XMS_ITS | Continuity of Care Document ---
Author Name Unknown Organization [facility] Address Unknown Care Team Providers Care Ore Digger Name Role Phone Margi Young MD Primary Care Physician [place] [facility] [place] [id number] Date(s): 06/23/21 - 06/30/21 [facility] Attending Physician: Magaly Lopez NP Referring Physician: Margi Young MD Allergies, Adverse [...] 05/25/21 7:34:00 EDT, Route to Pharmacy Electronically, [facility] #[id number], Partialfill upon patient request if the prescription [...] Gm, 3 Refills, Maintenance, 05/13/21 13:42:00 EDT, [facility] #[id number], Partial fill upon patient request if the prescription is for a schedule II opioid drug., 157.48, cm, 05/10/21 13:54:00... Start Date: 05/13/21 Status: Ordered Flonase 50 mcg/inh nasal spray 2 sprays, Nares, Both, Daily in AM, 0 Refills, Maintenance, 05/19/21 12:09:00 EDT, [place], Partial fill upon patient request if the [...] recent to oldest [Reference Range]: 1 Height 154.9 cm (06/23/21 2:47 PM) Weight 85.5 kg (06/23/21 2:47 PM) Pulse Rate [55-90 bpm] 70 bpm (06/23/21 2:47 PM) Body Mass Index [18.5-24.99] 35.63 *>HHI* (06/23/21 2:47 PM) Blood Pressure [90-138/55-84 mm Hg] 125/ 50mm Hg (06/23/21 2:47 PM) Respiratory Rate [16-30 br/min] 16 br/mi n (06/23/21 2:47 PM) Temperature [96.8-100.4 DegF] 98 DegF (06/23/21 2:47 PM) Social History Social History Type Response Smoking Status Never (less than 100 in lifetime) entered on: 05/13/21 Sex
--- OUTSIDE RECORDS SUMMARY | 2022-11-28 18:55 | XMS_ITS | Continuity of Care Document ---
Author Name Unknown Organization [facility] Address [address] [place] [address], [address] [place] [address]- Care Team Providers Care Senior Software Project Manager Name Role Phone Hector LAWS, Margi Primary Care Physician En[place] [facility] [place] Date(s): 10/13/21 - 11/12/21 [facility] [address] [place] [address], [address] [place] [address]- Allergies, Adverse Reactions, Alerts Substance Reaction Severity [...] 05/25/21 7:34:00 EDT, Route to Pharmacy Electronically, [facility] #[id number], Partialfill upon patient request if the prescription [...] Gm, 3 Refills, Maintenance, 05/13/21 13:42:00 EDT, [facility] #[id number], Partial fill upon patient request if the prescription is for a schedule II opioid drug., 157.48, cm, 05/10/21 13:54:00... Start Date: 05/13/21 Status: Ordered Flonase 50 mcg/inh nasal spray 2 sprays, Nares, Both, Daily in AM, 0 Refills, Maintenance, 05/19/21 12:09:00 EDT, [place], Partial fill upon patient request if the [...] Refills, Maintenance, 10/24/21 12:49:00 EDT, CR Capsule, [facility] #[id number], Partial fill upon patient request if the [...] 6 Refills, Maintenance, 10/13/21 11:16:00 EDT, Tablet, [facility] #[id number], Partial fill upon patient request if the [...]
--- OUTSIDE RECORDS SUMMARY | 2022-11-28 18:55 | XMS_ITS | Continuity of Care Document ---
Author Name Unknown Organization [facility] Address [address] [place] [address], [address] [address]- Care Team Providers Care Drawing In Machine Tender Helper Name Role Phone Margi Young MD Primary Care Physician [place] [facility] [place](s): 05/13/21 - 08/11/21 [facility] [address] [facility], [address] [place] [address]- Attending Physician: Evon Burnett MD Admitting Physician: Evon Burnett MD Referring Physician: Margi Young MD Allergies, Adverse [...] 05/25/21 7:34:00 EDT, Route to Pharmacy Electronically, [facility] #[id number], Partialfill upon patient request if the prescription [...] Gm, 3 Refills, Maintenance, 05/13/21 13:42:00 EDT, [facility] #[id number], Partial fill upon patient request if the prescription is for a schedule II opioid drug., 157.48, cm, 05/10/21 13:54:00... Start Date: 05/13/21 Status: Ordered Flonase 50 mcg/inh nasal spray 2 sprays, Nares, Both, Daily in AM, 0 Refills, Maintenance, 05/19/21 12:09:00 EDT, [place], Partial fill upon patient request if the [...]
--- OUTSIDE RECORDS SUMMARY | 2022-11-28 18:55 | XMS_ITS | Continuity of Care Document ---
Author Name Unknown Organization [facility] Address [address] [place] [address], [address] [address]- Care Team Providers Care Parts Cataloger Name Role Phone Margi Young MD Primary Care Physician [place] [facility] [place] 08/24/21 [facility] [address] [facility], [address] [place] [address]- Attending Physician: Evon Burnett MD Admitting Physician: [...] 05/25/21 7:34:00 EDT, Route to Pharmacy Electronically, [email or web address] #[id number], Partialfill upon patient request if the prescription [...] Gm, 3 Refills, Maintenance, 05/13/21 13:42:00 EDT, [email or web address] #[id number], Partial fill upon patient request if the prescription is for a schedule II opioid drug., 157.48, cm, 05/10/21 13:54:00... Start Date: 05/13/21 Status: Ordered Flonase 50 mcg/inh nasal spray 2 sprays, Nares, Both, Daily in AM, 0 Refills, Maintenance, 05/19/21 12:09:00 EDT, [place], Partial fill upon patient request if the [...]
--- OUTSIDE RECORDS SUMMARY | 2022-11-28 18:55 | XMS_ITS | Continuity of Care Document ---
Author Name Unknown Organization [facility] Address [address] [place] [address]- Care Team Providers Care Event Marketing Assistant Name Role Phone Chad Collazo NP Primary Care Physician [id number] Date(s[facility] 01/22/20 - 03/28/20 [facility] [address] [place] [address]- [facility] Attending Physician: Rick Adams MD Referring Physician: Chad Collazo NP Allergies, Adverse Reactions, Alerts Substance Reaction Severity Status morphine Active sulfa drugs Active Bactrim Active Percocet breathing problems Active Medications albuterol 90 mcg/inh inhalation aerosol See Instructions, 0, 0, 03/21/07 14:04:40, Print MARIUM Number, Constant Indicator Start Date: 03/21/07 Status: Ordered Celexa 20 mg oral tablet 20, mg, 1, tablet, By Mouth, Daily, 0, 0, 03/21/07 14:03:02, Print MARIUM Number, [id number], Constant Indicator Start Date: 03/21/07 Status: Ordered Elavil Tablet 50 mg, By Mouth, Daily at bedtime, 06/11/09 8:55:50 Start Date: 06/11/09 Stop Date: 07/10/09 Status: Ordered Flovent HFA 110 mcg/inh inhalation [...]
--- OUTSIDE RECORDS SUMMARY | 2022-11-28 18:55 | XMS_ITS | Continuity of Care Document ---
Author Name Unknown Organization [facility] ter Address [address] [place] [id number]- Care Team Providers Care Marketing Effectiveness Manager Name Role Phone Margi Young MD Primary Care Physician [place] [facility] [place] - 01/12/[address] [address]- Discharge Disposition: A-D/C Home Attending Physician: Evon Burnett MD Admitting Physician: Evon Burnett MD Referring Physician: Evon Burnett MD Allergies, Adverse Reactions, Alerts Substance Reaction [...] 05/25/21 7:34:00 EDT, Route to Pharmacy Electronically, [id number], Partialfill upon patient request if the prescription is fo... Start Date: 05/25/21 Status: Ordered Dilaudid 2 mg oral tablet 1 tablet = 2 mg, By Mouth, Every 4 hours, PRN as needed for pain, # 5 tablet, 0 Refills, Acute 01/19/22 8:57:00 EDT, 01/12/22 8:57:00 EDT, Tablet, [facility][id number], Partial fill upon patient request if the prescription is for a schedule II... Start Date: 01/12/22 Stop Date: 01/19/22 Status: Ordered Docusate = 100 mg, By Mouth, 2 times a day, 0 Refills, Maintenance, 05/19/21 12:00:00 EDT, Partial fill uponpatient request if the prescription is for a schedule II opioid drug. Start Date: 05/19/21 Status: Ordered estradiol 0.1 mg/g vaginal cream = 1 Gm, Vaginally, Every Sunday and , # 42.5 Gm, 3 Refills, Maintenance, 05/13/21 13:42:00 EDT, [id number], Partial fill upon patient request if the prescription is for a schedule II opioid drug., 157.48, cm, 05/10/21 13:54:00... Start Date: 05/13/21 Status: Ordered Flonase 50 mcg/inh nasal spray 2 sprays, Nares, Both, Daily in AM, 0 Refills, Maintenance, 05/19/21 12:09:00 EDT, [place], Partial fill upon patient request if the [...] opioid drug. Start Date: 05/19/21 Status: Ordered ibuprofen 600 mg oral tablet 600 mg, 1, tablet, By Mouth, Every 6 hours, PRN, if eneded for pain, # 40 tablet, Refills 0, Tot. Refills 0, Acute 01/26/22 8:57:00 EDT, for pain, 01/12/22 8:57:00 EDT, Route to Pharmacy Electronically, [facility] #[id number], Partial fill upon p... Start Date: 01/12/22 Stop Date: 01/26/22 Status: Ordered lidocaine 0.5% topical gel 1 [...] Refills, Maintenance, 10/24/21 12:49:00 EDT, CR Capsule, [id number], Partial fill upon patient request if the [...] 6 Refills, Maintenance, 10/13/21 11:16:00 EDT, Tablet, [facility] #[id number], Partial fill upon patient request if the [...] Most recent to oldest [Reference Range]: 1 2 3 Height 158 cm (01/12/22 8:05 AM) 158 cm (01/10/22 5:19 PM) Weight 84.5 kg (01/12/22 8:05 AM) 83 kg (01/10/22 5:19 PM) Oxygen Saturation [94-100 %] 96 % (01/12/22 11:30 AM) 94 % (01/12/22 11:15 AM) 97 % (01/12/22 11:00 AM) Pulse Rate [55-90 bpm] 80 bpm (01/12/22 8:05 AM) Body Mass Index [18.5-24.99] 33.85 *>HHI* (01/12/22 8:05 AM) 33.25 *>HHI* (01/10/22 5:19 PM) Blood Pressure [90-138/55-84 mm Hg] 135/74mm Hg (01/12/22 11:30 AM) 143/66mm Hg *H* (01/12/22 11:15 AM) 145/82mm Hg *H* (01/12/22 11:00 AM) Respiratory Rate [16-30 br/min] 19 br/min (01/12/22 11:30 AM) 14 br/min *L* (01/12/22 11:15 AM) 19 br/min (01/12/22 11:00 AM) Temperature [96.8-100.4 DegF] 98.0 DegF (01/12/22 10:45 AM) 97.4 DegF (01/12/22 9:45 AM) 97.0 DegF (01/12/22 8:05 AM) Liters per Minute 6 L/min (01/12/22 10:15 AM) 6 L/min (01/12/22 10:00 AM) 6 L/min (01/12/22 9:45 AM) Mode of Delivery (Oxygen) Room air (01/12/22 11:30 AM) Room air (01/12/22 11:00 AM) Room air (01/12/22 10:45 AM) Blood pressure sites Arm, left (01/12/22 11:30 AM) Arm, left (01/12/22 11:15 AM) Arm, left (01/12/22 11:00 AM) Temperature Route Temporal (01/12/22 10:45 AM) Temporal (01/12/22 9:45 AM) Temporal (01/12/22 8:05 AM) Dry Weight 83 kg (01/10/22 5:19 PM) Dry Weight Obtained Via Patient/family s tated (01/10/22 5:19 PM) Social History Social History Type Response Smoking Status Never (less than 100 in lifetime) entered on: 05/13/21 Sex
--- OUTSIDE RECORDS SUMMARY | 2022-11-28 18:55 | XMS_ITS | Continuity of Care Document ---
Author Name Unknown Organization [facility] Address [address] [place] [address], [address] [place] [address]- Care Team Providers Care Day Worker Name Role Phone Hector LAWS, Margi Primary Care Physician [place] [facility] [place] 07/19/22 - 08/18/22 [facility] [address], [address] [place] [address]- Attending Physician: Cedric Christian Admitting Physician: AdmCedric calloway Referring Physician: AdmtrCedric Allergies, Adverse Reactions, Alerts Substance Reaction Severity [...] 05/25/21 7:34:00 EDT, Route to Pharmacy Electronically, [facility] #[id number], Partialfill upon patient request if the prescription [...] , # 42.5 Gm, 3 Refills, Maintenance, 05/16/22 15:18:00 EDT, [facility] #[id number], Partial fill upon patient request if the prescription is for a schedule II opioid drug., 158, cm, 01/27/22 14:42:00 ED... Start Date: 05/16/22 Status: Ordered Flonase 50 mcg/inh nasal spray 2 sprays, Nares, Both, Daily in AM, 0 Refills, Maintenance, 05/19/21 12:09:00 EDT, [place], Partial fill upon patient request if the [...] Mouth, Daily in AM, # 30 capsule, 2 Refills, Maintenance, 02/20/22 15:04:00 EDT, CR Capsule, [facility] #[id number], Partial fill upon patient request if the prescription is for a schedule II opioid drug., 158, cm, 01/27/22... Start Date: 02/20/22 Status: Ordered Tylenol Extra Strength 500 mg [...] 6 Refills, Maintenance, 10/13/21 11:16:00 EDT, Tablet, [facility] #[id number], Partial fill upon patient request if the [...] Date: 05/19/21 Status: Ordered Problem List Condition Confirmation Course Effective Dates Status H ealth Status Informant Allergic rhinitis Confirmed Active Asthma Confirmed Active Depression Confirmed Active Rash Confirmed Active GERD (gastroesophageal reflux disease) Confirmed Active HIV disease Confirmed Active Hyperlipidemia Confirmed Active Myalgia Confirmed Active Myositis Confirmed Active Obese class I Confirmed Active Diabetes mellitus type 2, uncomplicated Confirmed Active Social History Social History Type Response Smoking Status Never (less than 100 in lifetime) entered on: 05/13/21 Sex Patient Care team information Care Team Personnel Name: Dayami Hernandez [place] Position: [facility] Outreach Member Role: Lifetime Consulting Physician Name: Margi Young MD Position: Reference Physician Member Role: PCP Address: Address: [address] [place] [address]- Care Team Related Persons Name: RHETT GAUTAM Address: [address] [place] [address]
--- OUTSIDE RECORDS SUMMARY | 2022-11-28 18:55 | XMS_ITS | Continuity of Care Document ---
Author Name Unknown Organization [facility] Address Unknown Care Team Providers Care Hospital Superintendent Name Role Phone Hector LAWS, Margi Primary Care Physician [place] [facility] [place]22 [facility] Attending Physician: Magaly Lopez NP [...] 05/25/21 7:34:00 EDT, Route to Pharmacy Electronically, [facility] #[id number], Partialfill upon patient request if the prescription [...] Gm, 3 Refills, Maintenance, 05/13/21 13:42:00 EDT, [facility] #[id number], Partial fill upon patient request if the prescription is for a schedule II opioid drug., 157.48, cm, 05/10/21 13:54:00... Start Date: 05/13/21 Status: Ordered Flonase 50 mcg/inh nasal spray 2 sprays, Nares, Both, Daily in AM, 0 Refills, Maintenance, 05/19/21 12:09:00 EDT, [place], Partial fill upon patient request if the [...] Refills, Maintenance, 10/24/21 12:49:00 EDT, CR Capsule, [facility] #[id number], Partial fill upon patient request if the prescription is for a schedule II opioid drug., 154.9, cm, 12/02/2... Start Date: 10/24/21 Status: Ordered Tylenol Extra [...] 6 Refills, Maintenance, 10/13/21 11:16:00 EDT, Tablet, [facility] #[id number], Partial fill upon patient request if the [...] oldest [Reference Range]: 1 Height 154.9 cm (12/27/21 11:15 AM) Weight 84.2 kg (12/27/21 11:15 AM) Pulse Rate [55-90 bpm] 79 bpm (12/27/21 11:15 AM) Body Mass Index [18.5-24.99] 35.09 *>HHI* (12/27/21 11:15 AM) Blood Pressure [90-138/55-84 mm Hg] 132/ 60mm Hg (12/27/21 11:15 AM) Respiratory Rate [16-30 br/min] 16 br/mi n (12/27/21 11:15 AM) Temperature [96.8-100.4 DegF] 97.4 DegF (12/27/21 11:15 AM) Social History Social History Type Response Smoking Status Never (less than 100 in lifetime) entered on: 05/13/21 Sex
--- OUTSIDE RECORDS SUMMARY | 2022-11-28 18:55 | XMS_ITS | Continuity of Care Document ---
Author Name Unknown Organization [facility] Swapna [facility]Brit[facility]s [facility] Address [address] [place] [address], [address] [place] [address]- Care Team Providers Care Tank House Operator Helper Name Role Phone Margi Young MD Primary Care Physician [place] [facility] [place](s): 07/11/21 - 08/28/21 [facility] [address] [facility] [place] [address]- Attending Physician: Evon Burnett MD Referring Physician: Margi [...] 05/25/21 7:34:00 EDT, Route to Pharmacy Electronically, [facility] #[id number], Partialfill upon patient request if the prescription [...] Gm, 3 Refills, Maintenance, 05/13/21 13:42:00 EDT, [facility] #[id number], Partial fill upon patient request if the prescription is for a schedule II opioid drug., 157.48, cm, 05/10/21 13:54:00... Start Date: 05/13/21 Status: Ordered Flonase 50 mcg/inh nasal spray 2 sprays, Nares, Both, Daily in AM, 0 Refills, Maintenance, 05/19/21 12:09:00 EDT, [place], Partial fill upon patient request if the [...]
--- OUTSIDE RECORDS SUMMARY | 2022-11-28 18:55 | XMS_ITS | Continuity of Care Document ---
Author Name Unknown Organization [facility] Address [address] [place] [address]- Care Team Providers Care Manager Review Name Role Phone Chad Collazo NP Primary Care Physician [place] [facility] [place] [facility] [id number] Date(s): 02/27/20 - 03/28/20 [facility] [address] [place] [address]- [facility] Attending Physician: Admtr, Richard8 Admitting Physician: Admtr, Ar8 Referring Physician: Admtr, Ar8 Allergies, Adverse Reactions, Alerts Substance Reaction Severity Status morphine Active sulfa drugs Active Bactrim Active Percocet 325 breathing problems Active Medications albuterol 90 mcg/inh inhalation aerosol See Instructions, 0, 0, 03/21/07 14:04:40, Print MARIUM Number, Constant Indicator Start Date: 03/21/07 Status: Ordered Celexa 20 mg oral tablet 20, mg, 1, tablet, By Mouth, Daily, 0, 0, 03/21/07 14:03:02, Print MARIUM Number, [id number], Constant Indicator Start Date: 03/21/07 Status: Ordered [...]
--- OUTSIDE RECORDS SUMMARY | 2022-11-28 18:55 | XMS_ITS | Continuity of Care Document ---
Author Name Unknown Organization [facility] Swapna perezzintins [facility] Address [address] [place] [address], [address] [place] [address]- Care Team Providers Care Practical Nursing Faculty Name Role Phone Margi Young MD Primary Care Physician [place] [facility] [place] 07/29/21 - 08/28/21 [facility]nadavid Pro[facility] [address] [facility], [address]th [place] [address]- Attending Physician: AdmCedric calloway Admitting Physician: Admtr, Cedric Referring Physician: Admtr, [...] 05/25/21 7:34:00 EDT, Route to Pharmacy Electronically, [facility] #[id number], Partialfill upon patient request if the prescription [...] Gm, 3 Refills, Maintenance, 05/13/21 13:42:00 EDT, [facility] #[id number], Partial fill upon patient request if the prescription is for a schedule II opioid drug., 157.48, cm, 05/10/21 13:54:00... Start Date: 05/13/21 Status: Ordered Flonase 50 mcg/inh nasal spray 2 sprays, Nares, Both, Daily in AM, 0 Refills, Maintenance, 05/19/21 12:09:00 EDT, [place], Partial fill upon patient request if the [...]
--- OUTSIDE RECORDS SUMMARY | 2022-11-28 18:56 | XMS_ITS | Continuity of Care Document ---
Author Name Unknown Organization [facility] ter Address [address] [place] [address]- Care Team Providers Care Occasional Caregiver Name Role Phone Margi Young MD Primary Care Physician [id number] Date(s): 05/25/21 - 05/25/[address] [address]- Discharge Disposition: A-D/C Home Attending Physician: Kasie Long MD Admitting Physician: Kasie Long MD Referring Physician: Kasie Long MD Allergies, Adverse Reactions, Alerts Substance Reaction Severity Status sulfamethoxazole Active sulfa drugs Active OxyCODONE Hydrochloride Acti ve trimethoprim Active morphine Active Bactrim Active Percocet 5/325 breathing problems Active Medications Albuterol (Eqv-ProAir HFA) 2 puffs, Inhalation, [...] 05/25/21 7:34:00 EDT, Route to Pharmacy Electronically, [facility] #[id number], Partialfill upon patient request if the prescription [...] Gm, 3 Refills, Maintenance, 05/13/21 13:42:00 EDT, [facility] #[id number], Partial fill upon patient request if the prescription is for a schedule II opioid drug., 157.48, cm, 05/10/21 13:54:00... Start Date: 05/13/21 Status: Ordered Flonase 50 mcg/inh nasal spray 2 sprays, Nares, Both, Daily in AM, 0 Refills, Maintenance, 05/19/21 12:09:00 EDT, [place], Partial fill upon patient request if the [...] oldest [Reference Range]: 1 2 3 Height 154.9 cm (05/25/21 6:54 AM) 154.9 cm (05/19/21 12:37 PM) Weight 85.4 kg (05/25/21 6:54 AM) 85.4 kg (05/19/21 12:37 PM) Oxygen Saturation [94-100 %] 97 % (05/25/21 9:15 AM) 98 % (05/25/21 9:00 AM) 100 % (05/25/21 8:45 AM) Pulse Rate [55-90 bpm] 55 bpm (05/25/21 6:54 AM) Body Mass Index [18.5-24.99] 35.59 *>HHI* (05/25/21 6:54 AM) 35.59 *>HHI* (05/19/21 12:37 PM) Blood Pressure [90-138/55-84 mm Hg] 130/63mm Hg (05/25/21 9:15 AM) 130/63mm Hg (05/25/21 8:45 AM) 131/58mm Hg (05/25/21 8:30 AM) Respiratory Rate [16-30 br/min] 13 br/min *L* (05/25/21 9:00 AM) 15 br/min *L* (05/25/21 8:45 AM) 19 br/min (05/25/21 8:30 AM) Temperature [96.8-100.4 DegF] 97.7 DegF (05/25/21 9:15 AM) 97.2 DegF (05/25/21 8:45 AM) 97.0 DegF (05/25/21 8:30 AM) Liters per Minute 6 L/min (05/25/21 8:30 AM) Mode of Delivery (Oxygen) Room air (05/25/21 9:15 AM) Room air (05/25/21 9:00 AM) Room air (05/25/21 8:45 AM) Blood pressure sites Arm, right (05/25/21 8:30 AM) Temperature Route Temporal (05/25/21 9:15 AM) Temporal (05/25/21 8:45 AM) Temporal (05/25/21 8:30 AM) Dry Weight 85.4 kg (05/19/21 12:37 PM) Weight Obtained Via Standing scale (05/25/21 6:54 AM) Patient/family stated (05/19/21 12:37 PM) Dry Weight Obtained Via Standing scale (05/25/21 6:54 AM) Patient/family stated (05/19/21 12:37 PM) Social History Social History Type Response Smoking Status Never (less than 100 in lifetime) entered on: 05/13/21 Sex
--- OUTSIDE RECORDS SUMMARY | 2022-11-28 18:56 | XMS_ITS | Continuity of Care Document ---
Author Name Unknown Organization [facility] Address [address] [place] [address]- Care Team Providers Care Loft Worker Head Name Role Phone Chad Collazo NP Primary Care Physician [place] [facility] [place] 02/21/20 [facility] [address] [place] [address]- [place] Allergies, Adverse Reactions, Alerts Substance Reaction Severity Status morphine Active sulfa drugs Active Bactrim Active Percocet breathing problems Active Medications albuterol 90 mcg/inh inhalation aerosol See Instructions, 0, 0, 03/21/07 14:04:40, Print MARIUM Number, Constant Indicator Start Date: 03/21/07 Status: Ordered Celexa 20 mg oral tablet 20, mg, 1, tablet, By Mouth, Daily, 0, 0, 03/21/07 14:03:02, Print MARIUM Number, [id number], Constant Indicator Start Date: 03/21/07 Status: Ordered [...]
[2022-11-28] MEDS: Butalb/Acetamin/Caff 50/325/40 TABLET 1 TAB PO (18:57)
[2022-11-28 20:19] VITALS: BP 130/90; PULSE 61; RESP 16; O2SAT 97
== END 2022-11-28 20:27 | disposition home or self-care (01) ==
PROVIDERS: Physician Assistant; Emergency Provider Internal Medicine; PCP Family Medicine
DX: R51.9 Headache, unspecified (principal); R07.9 Chest pain, unspecified; I10 Essential (primary) hypertension; Z79.899 Other long term (current) drug therapy
CPT/HCPCS: 36415; 70450; 80048; 80076; 83735; 84484; 85025; 85610; 93005; 99284; 99285

== ENCOUNTER 2022-12-13 11:01 | Outpatient (REF) | payer OTHER, SELFPAY ==
--- NOTE | ~2022-12-13 | MM_ITS ---
EXAMINATION: MM SCREENING DIGITAL BREAST TOMOSYNTHESIS, BILATERAL CLINICAL INFORMATION: Screening. Asymptomatic. The lifetime risk of breast cancer based on the Tyrer-Cuzick Model is 6%. COMPARISON: Mammography: 10/24/2021, 10/31/2020, 03/01/2020, 02/24/2019 TECHNIQUE: Digital breast tomosynthesis is performed in both the craniocaudal and mediolateral oblique views along with computer-aided detection (CAD). Synthesized 2D images are generated from the tomosynthesis. FINDINGS: There are scattered areas of fibroglandular density (ACR BI-RADS breast composition Category b). Breast tissue composition borders on predominantly fatty. Scattered background fibroglandular densities and minor nodularity are similar to prior exams. No developing density or architectural abnormality. There are no significant masses, abnormal calcifications, or other abnormalities. The axilla and skin contours are unremarkable. MM/MM tomosynthesis screening BI IMPRESSION: No mammographic evidence of malignancy. ASSESSMENT: BI-RADS 2: Benign RECOMMENDATION: Routine annual mammography screening. This patient's information was entered into a reminder system with a target due date for their next mammogram.
== END 2022-12-13 11:02 | disposition home or self-care (01) ==
LOC: HO.MAMMO 11:01
PROVIDERS: PCP Family Medicine; Visit Provider Family Medicine
DX: Z12.31 Encounter for screening mammogram for malignant neoplasm of breast (principal)
CPT/HCPCS: 77063; 77067

== ENCOUNTER 2023-01-24 13:15 | Outpatient (REF) | payer OTHER, SELFPAY ==
--- NOTE | ~2023-01-24 | XR_ITS ---
EXAMINATION: XR LUMBOSACRAL SPINE CLINICAL INFORMATION: Left-sided low back pain COMPARISON: 03/17/2015 TECHNIQUE: Three views of the lumbosacral spine. FINDINGS: The lumbar vertebra have well preserved height and alignment. No vertebral compression fractures. There are anterior vertebral osteophytes at the mildly degenerated levels of L1-L2, L2-L3 and L3-4. The intervertebral fusion cages are well-positioned in the disc spaces at L4-5 and L5-S1. No osteolysis around the hardware. Again noted are multiple surgical clips within the anterior paraspinal tissues. The sacrum and sacroiliac joints are unremarkable. No suspicious bone lesions. XR/XR lumbar spine 2-3V IMPRESSION: * No fracture or malalignment of the mildly degenerated lumbar spine. * No evidence of loosening of the intervertebral fusion cages at L4-5 or L5-S1.
== END 2023-01-24 13:16 | disposition home or self-care (01) ==
LOC: HO.XRAY 13:15
PROVIDERS: PCP Family Medicine; Visit Provider Family Medicine
DX: M54.50 Low back pain, unspecified (principal)
CPT/HCPCS: 72100

== ENCOUNTER → 2023-03-22 12:55 | Outpatient (REF) | payer OTHER, SELFPAY ==
--- NOTE | 2023-03-22 12:58 | HM_ITS ---
* Total monitoring time about 1 day. * Underlying rhythm is sinus. Average ventricular rate 76/Min. Range 57 to 128/min. * Very rare supraventricular ectopy with minimal burden. * No significant ventricular ectopy. * No significant pauses or AV blocks. * No patient markers or events in diary. MTDD
== END ==
LOC: HO.CARD 12:55
PROVIDERS: Visit Provider Family Medicine
DX: R42 Dizziness and giddiness (principal)
CPT/HCPCS: 93225

== ENCOUNTER → 2023-03-22 12:58 | Outpatient (BNV) | payer OTHER, SELFPAY | PROVIDERS: Visit Provider Internal Medicine | DX: I47.1 Supraventricular tachycardia (principal) | CPT/HCPCS: 93227 ==

== ENCOUNTER 2023-03-27 18:44 | Outpatient (REF) | payer OTHER, SELFPAY ==
--- NOTE | ~2023-03-27 | MR_ITS ---
EXAMINATION: MR BRAIN WITHOUT CONTRAST CLINICAL INFORMATION: Daily new onset of dizziness. COMPARISON: CT head from 11/28/2022. Brain MRI dated 06/02/2022. TECHNIQUE: Multiplanar, multisequence imaging of the brain was performed without contrast. FINDINGS: No diffusion abnormalities are identified to suggest an acute or subacute infarct. The ventricles are normal in size. No mass effect or midline shift is seen. Nonspecific mild scattered white matter signal changes are stable. No extra-axial fluid collections are seen. The brainstem and cerebellum are normal. No cerebellopontine angle cistern mass is seen. The gradient refocused acquisition is normal. The craniovertebral junction, marrow signal, and midline structures are normal. The major intracranial flow voids at the level of the [place] of [place] are preserved. The dural venous sinus flow voids are maintained. The mastoid air cells are well aerated. Mild posterior ethmoid sinus mucosal thickening noted on the left side. MR/MR head/brain wo con IMPRESSION: No acute intracranial process. Stable nonspecific mild white matter signal changes, which may be due to chronic ischemic microangiopathy.
== END 2023-03-27 18:45 | disposition home or self-care (01) ==
LOC: HO.MRI 18:44
PROVIDERS: PCP Family Medicine; Visit Provider Family Medicine
DX: R42 Dizziness and giddiness (principal)
CPT/HCPCS: 70551

== ENCOUNTER 2023-06-06 12:26 | Outpatient (AMB) | payer OTHER, SELFPAY ==
--- NOTE | 2023-06-06 12:49 | A.OFFVIS_ITS ---
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 Intake Note: NPV Outbound Sales Professional Required: No Accompanied by: Self / Same As Patient Allergies Penicillins [PENICILLINS] Allergy (Intermediate, Verified 06/06/23 12:50) ITCHING sulfamethoxazole [From BACTRIM] Allergy (Intermediate, Verified 06/06/23 12:50) RASH trimethoprim [From BACTRIM] Allergy (Intermediate, Verified 06/06/23 12:50) RASH morphine [Morphine] Allergy (Mild, Verified 06/06/23 12:50) THROAT SWELLING Sulfa (Sulfonamide Antibiotics) Allergy (Mild, Verified 06/06/23 12:50) RASH/HEADACHE acetaminophen [Percocet] Allergy (Unknown, Verified 06/06/23 12:50) redness, swelling, itchy oxycodone [Percocet] Allergy (Unknown, Verified 06/06/23 12:50) redness, swelling, itchy Biaxin Allergy (Unknown, Uncoded 06/06/23 12:50) itchy Medication List - Last Reconciled 06/06/23 by Aristides Connolly MD albuterol sulfate 90 mcg/actuation 0 mcg inhalation amlodipine 10 mg PO DAILY ascorbic acid (vitamin C) (Vitamin C) 500 mg PO BID jshgpytcrz-wnhdinkrbupzv-rtpb 50-300-40 mg (Fioricet) 1 cap PO TID PRN cholecalciferol (vitamin D3) 50 mcg PO DAILY cyanocobalamin (vitamin B-12) 1,000 mcg PO DAILY docusate sodium (Colace) 100 mg PO .DAILY WITH FOOD PRN 30 days famotidine 40 mg PO BEDTIME 30 days fluticasone propion-salmeterol 230-21 mcg/actuation 2 puffs inhalation BID fluticasone propion-salmeterol 250-50 mcg/dose 1 ea inhalation BID fluticasone propionate 50 mcg/actuation sprays intranasal hydrochlorothiazide 25 mg PO DAILY ipratropium-albuterol 0.5 mg-3 mg(2.5 mg base)/3 mL 3 mL inhalation Q4-6H PRN 30 days lidocaine 5% topical ovhchc-vlracafx-pholxba 3,000-9,500- 15,000 unit (Creon) 1 cap PO .TIDAC 30 days loratadine 10 mg PO DAILY metoprolol succinate ER 50 mg PO DAILY psyllium husk (aspartame) 3.4 gram/5.8 gram (Metamucil Sugar-Free (aspartame)) 1 ea PO BID sertraline 50 mg PO DAILY tramadol 50 mg PO TID PRN zolpidem 10 mg PO BEDTIME PRN HPI HPI Comments History of Present Illness Details Melissa has been referred for evaluation of uncontrolled hypertension. It is somewhat confusing as the record blood pressures in the office are essentially normal or minimally elevated. In fact high highest reading recorded in the clinic setting is 144/82 mm Hg. However, patient states that at home her blood pressures are running very high and somewhat as much as in the 180s. Hence not clear what his actual issue. Her daughter also confirms the fact that home blood pressures are much higher than the office blood pressures. Otherwise, no history of any coronary artery disease, myocardial infarction or cardiomyopathy. She has various symptoms including feeling dizzy, short of breath, chest pressure different times, with and without exertion. She also has significant anxiety at baseline. COUNT INCLUDES THE [facility] Medical History (Updated 06/06/23 @ 13:06 by Aristides Connolly MD) Essential hypertension Surgical History Hx of colonoscopy Hx of tubal ligation History of carpal tunnel surgery History of back surgery Hx of eye surgery Hx of cholecystectomy Family History Father Stomach cancer Mother Alzheimer disease Type 2 diabetes mellitus Hyperlipidemia Family/Other HTN (hypertension) Sleep apnea Diabetes Maternal Uncle FH: prostate cancer Stomach cancer Alzheimer disease Paternal Uncle Stomach cancer Social History Alcohol intake: current Alcohol intake frequency: does not drink Review of Systems Const Denies weakness Eyes Denies loss of vision ENT Denies dizziness Card Denies chest pain, Denies chest pain with activity, Denies syncope, Denies rapid heart rate, Denies pedal edema, Denies edema, Denies leg edema, Denies lightheadedness, Denies palpitations, Denies dyspnea, Denies dyspnea on exertion and Denies orthopnea Resp Denies cough, Denies dyspnea, Denies dyspnea on exertion and Denies wheezing GI Denies hematochezia and Denies change in stool character Denies hematuria, Denies urinary frequency and Denies dysuria Musc Denies abnormal gait, Denies muscle cramps, Denies muscle weakness, Denies numbness, Denies radiating pain into limb and Denies tingling Skin/Breast Denies nail changes and Denies rash Neuro Denies Abnormal speech present, Denies abnormal gait, Denies dizziness, Denies syncope, Denies loss of vision, Denies memory loss, Denies numbness, Denies tingling and Denies weakness Psych Denies depression and Denies memory loss Endo Denies palpitations Aller/Immun Denies wheezing Physical Exam Vital Signs: Last Vital Signs Pulse 74 06/06/23 12:50 BP 132/78 06/06/23 12:50 BMI result Body Mass Index 35.2 Const General: comfortable and no acute distress Orientation/consciousness: patient oriented x3 HEENT Other: Unremarkable Head: Yes normal to inspection Neck Neck: Yes normal visual inspection Chest Chest palpation & inspection: normal inspection of the chest Resp Auscultation: clear to auscultation bilaterally Cardio Palpation: normal PMI Heart sounds: S1 normal heart sound present, S2 normal heart sound present, no gallops, no murmurs and no rubs GI Palpation (GI): Soft to palpation Back/Spine/Pelvis Other: unremarkable Skin General skin exam: no rashes or lesions noted Neuro General: patient oriented x3 Speech: No Abnormal speech present Extrem General: Yes normal to inspection Psych Mental Status: mental status grossly normal Assessment & Plan Assessment & Plan (1) Essential hypertension: Code(s): I10 - Essential (primary) hypertension (2) Chest pressure: Code(s): R07.89 - Other chest pain Plan Patient reported very high blood pressure readings up to the 180s but not reproducible in clinic. Will try to arrange a 24 hour blood pressure monitor if available in our hospital. Otherwise, various symptoms including feeling dizzy, chest pressure, shortness of breath at different times, with and without exertion. We can get an echocardiogram and stress test. Follow-up after completion of the above. Daughter acted as ironworker foreman for this encounter. Appropriate form signed. Orders: Orders CA stress test Today R07.2 - Precordial pain, R07.89 - Other chest pain NM cardiolite stress test Today R07.2 - Precordial pain, R07.89 - Other chest pain CA echo transthoracic complete Today I25.10 - Atherosclerotic heart disease of [place] coronary artery without angina pectoris, R07.89 - Other chest pain Coding Level of Care Code New Pt Level 3 (02419) Diagnoses Essential hypertension I10 Chest pressure R07.89
[2023-06-06 12:50] VITALS: BP 132/78; PULSE 74; BMI 35.2
== END 2023-06-06 13:00 | disposition home or self-care (01) ==
PROVIDERS: Visit Provider Internal Medicine
DX: I10 Essential (primary) hypertension (principal); R07.89 Other chest pain
CPT/HCPCS: 99203

== ENCOUNTER → 2023-06-06 12:26 | Outpatient (BNVA) | payer OTHER, SELFPAY | PROVIDERS: Visit Provider Internal Medicine | DX: I10 Essential (primary) hypertension (principal); R07.89 Other chest pain | CPT/HCPCS: 99202 ==

== ENCOUNTER 2023-07-03 12:35 | Outpatient (REF) | payer OTHER, SELFPAY ==
[2023-07-03 13:34] LABS: MANUAL DIFF FLAG NO
[2023-07-03 13:58] LABS: Basophils Percent Auto 0.5 % (0-2); Eosinophils Absolute Auto 0.2 X10*3/uL (0.0-0.4); Eosinophils Percent Auto 1.9 % (0-4); Hematocrit 37.4 % (37.0-47.0); Hemoglobin 12.5 g/dl (12.0-16.0); Imm Gran Abs Auto 0.03 X10*3/uL (0.00-0.03); Imm Gran Pct Auto 0.4 % (0.0-0.4); Lymphocytes Absolute Auto 1.5 X10*3/uL (1.2-4.9); Lymphocytes Percent Auto 18.4 % (20-40); Mean Corpuscular HGB Conc 33.4 g/dl (31.0-35.0); Mean Corpuscular Hemoglobin 30.3 pg (27.0-33.0); Mean Corpuscular Volume 90.8 fL (80.0-98.0); Monocytes Absolute Auto 0.4 X10*3/uL (0.1-1.2); Monocytes Percent Auto 4.9 % (2-11); Neutrophils Absolute Auto 6.1 x10*3/uL (2.0-8.3); Neutrophils Percent Auto 73.9 % (45-73); Platelet Count 242 X10*3/uL (160-400); Red Blood Count 4.12 X10*6/uL (4.20-5.50); Red Cell Distribution Width 12.6 % (11.0-16.0); White Blood Count 8.2 X10*3/uL (4.8-10.8)
[2023-07-03 14:05] LABS: Alanine Aminotransferase 11 U/L (0-31); Albumin Level 3.8 g/dL (3.5-5.0); Alkaline Phosphatase 75 U/L (39-117); Anion Gap 13 (12-20); Aspartate Amino Transferase 14 U/L (5-31); Bilirubin Total 0.6 mg/dL (0.0-1.0); Blood Urea Nitrogen 14 mg/dL (9-16); Calcium 9.1 mg/dL (8.4-10.2); Carbon Dioxide 23 mmol/L (22-29); Chloride 107 mmol/L (96-108); Estimated Glomerular Filt Rate 55; Glucose Random 121 mg/dL (60-115); Potassium 3.6 mmol/L (3.3-5.1); Sodium 139 mmol/L (135-145); Total Protein 7.4 g/dL (6.5-8.0)
[2023-07-03 14:51] LABS: Syphilis Screen Nonreactive (Nonreactive)
[2023-07-04 08:55] LABS: ~HepC Num1 0.21 S/CO (0.00-0.79); ~Hepatitis C Antibody Nonreactive (Nonreactive)
[2023-07-04 10:49] LABS: Absolute CD3 Count 991 cells/uL (840-3060); Absolute CD4 Count 442 cells/uL (490-1740); Absolute CD8 Count 558 cells/uL (180-1170); Absolute Lymphocytes 1423 cells/uL (850-3900); CD4 CD8 Ratio 0.79 (0.86-5.00); Percent CD3 Cells 70 % (57-85); Percent CD4 Cells 31 % (30-61); Percent CD8 Cells 39 % (12-42)
[2023-07-05 15:27] LABS: HIV RNA PCR Qn Copies NOT DETECTED copies/mL (NOT DETECTED); HIV RNA PCR Qn Log Copies NOT DETECTED (NOT DETECTED)
[2023-07-06 09:08] LABS: TS Negative Control Passed; TS Panel A 2; TS Panel B 0; TS Positive Control Passed; TSpotTB Negative (Negative)
== END 2023-07-03 12:36 | disposition home or self-care (01) ==
LOC: HO.HHCL 12:35
PROVIDERS: Visit Provider Student in an Organized Health Care Education/Training Program
DX: B20 Human immunodeficiency virus [HIV] disease (principal)
CPT/HCPCS: 36415; 80053; 85025; 86359; 86360; 86481; 86780; 86803; 87536

== ENCOUNTER 2023-07-09 08:37 | Outpatient (REF) | payer OTHER, SELFPAY ==
[2023-07-09 12:02] LABS: Potassium 3.8 mmol/L (3.3-5.1)
== END 2023-07-09 08:38 | disposition home or self-care (01) ==
LOC: HO.HHCL 08:37
PROVIDERS: Visit Provider Internal Medicine
DX: E87.6 Hypokalemia (principal)
CPT/HCPCS: 36415; 84132

== ENCOUNTER → 2023-09-21 13:17 | Outpatient (REF) | payer OTHER, SELFPAY ==
--- NOTE | 2023-09-21 13:20 | CA_ITS ---
Transthoracic Echocardiogram Patient (Last, First, Middle): Melissa Zavala, Gender: Female Date of : 1960 Age: 62 Procedure Date: 09/21/2023 Procedure Type: Transthoracic Echocardiogram Location: OP Height: 160. cm Weight: 85.28 kg BSA: 1.88 m2 Heart Rate: 50 bpm BP: 120 / 60 mmHg Customer Order Clerk: TOYA Referring MD: Aristides Connolly MD Symptoms: I25.10 - Atherosclerotic heart disease of [place] coronary artery without... Study Quality: Fair w/Contrast ECG Rhythm: Sinus bradycardia Conclusions: - The left ventricular systolic function is normal. The calculated ejection fraction is 63% by biplane method. - No obvious valvular pathology seen on this study. Findings Procedure Information Contrast agent, definity, is being given per protocol without apparent complications. Left Ventricle Normal left ventricular cavity size. The left ventricular systolic function is normal. The calculated ejection fraction is 63% by biplane method. There is no evidence of regional wall motion abnormalities. Diastolic function is normal for age. There is mild septal asymmetric hypertrophy. Right Ventricle Mildly increased right ventricular cavity size. There is normal right ventricular systolic function. Atria Both atria are normal in size. Aortic Valve There is a normal trileaflet aortic valve. There is no aortic valve stenosis. There is no aortic valve regurgitation. Mitral Valve The mitral valve appears normal. There is trace mitral valve regurgitation. There is no mitral valve stenosis. Pulmonic Valve The pulmonic valve is likely normal. Tricuspid Valve There is trace tricuspid valve regurgitation. There is no evidence of pulmonary hypertension. Great Vessels The asc aorta is normal in size. Venous The inferior vena cava is normal in size and collapses greater than 50% with inspiration. Pericardium/Pleural There is no evidence of pericardial effusion. Prior Study Comparison No significant change compared to prior study dated: 08/22/2019. Recommendations, Care & Conclusions No obvious valvular pathology seen on this study. Measurements 2D Linear Measurements IVSd: 1.16 0.6-0.9/0.6-1.0 cm LVIDd: 5.19 3.9-5.3/4.2-5.9 cm LVIDd Index: 2.76 2.4-3.2/2.2-3.1 cm/m2 LVIDs: 3.07 2.0-3.6 cm LVPWd: 0.84 0.7-1.1 cm LA Diam: 3.30 2.7-3.8/3.0-4.0 cm LAIDs Index: 1.76 1.5-2.3 cm/m2 LV Mass: 241.82 67-162/88-224 g LV Mass Index: 128.63 43-95/49-115 g/m2 LVOT Diam: 2.00 3.0+(-)1.3 cm 2D Systolic Function EF 4C: 65.60 >55% EF 2C: 59.10 >55% EF BiP: 62.60 >55% Mitral Valve MV Pk E: 0.69 MV PK A: 0.75 MV Decel Time: 259.00 E/A: 0.90 E'Lateral: 8.16 E'Medial: 8.38 E/E' Med: 8.30 E/E' Lat: 8.50 PHT: 76.00 MVA PHT: 2.89 Decel Villalba: 2.68 Aortic Valve AoV Pk Nathaniel: 1.17 AoV Mn Nathaniel: 0.80 AoV VTI: 0.26 AoV Pk Grad: 5.00 Aov Mn Grad: 3.00 MARITZA Cont.VTI: 2.37 LVOT LVOT Pk Nathaniel: 0.93 LVOT Mn Nathaniel: 0.62 LVOT VTI: 0.20 LVOT Pk Grad: 3.00 LVOT Mn Grad: 2.00 LVOT Diam: 2.00 LVOT Area: 3.14 Diastolic Function MV Pk E: 0.69 MV Pk A: 0.75 E/A: 0.90 E'Medial: 8.38 E/E' Med: 8.30 E' Laterial: 8.16 E/E' Lat: 8.50 Right Ventricle TAPSE (mm): 21.90 TVS' Nathaniel: 11.20 Tricuspid Valve TR Pk Nathaniel: 1.72 TR Pk Grad: 12.00 RA Press: 3.00 RVSP: 15.00 Great Vessels Aorta Sinus of Valsalva: 3.50 2.0-3.5 cm Ao Asc: 3.20 2.1-3.4 cm Pulmonary Valve PV Pk Nathaniel: 0.80 Peak PV Grad: 3.00 Updated in Other Vendor System with Status of Final Aristides Connolly MD electronically signed on 09/22/2023 11:52:22 AM with status of Final
== END ==
LOC: HO.CARD 13:17
PROVIDERS: Visit Provider Internal Medicine
DX: R07.89 Other chest pain (principal); I25.10 Atherosclerotic heart disease of native coronary artery without angina pectoris
CPT/HCPCS: 93306; Q9957

== ENCOUNTER → 2023-09-21 13:20 | Outpatient (BNV) | payer OTHER, SELFPAY | PROVIDERS: Visit Provider Internal Medicine | DX: I25.10 Atherosclerotic heart disease of native coronary artery without angina pectoris (principal) | CPT/HCPCS: 93306 ==

== ENCOUNTER → 2023-10-04 09:02 | Outpatient (REF) | payer OTHER, SELFPAY ==
--- NOTE | ~2023-10-04 | NM_ITS ---
Myocardial perfusion study Indication: Precordial chest pain to evaluate for myocardial ischemia Technique: The patient was brought in for a Lexiscan perfusion study on 10/04/2023. Patient performed low-level exercise and was injected 0.4 mg of Lexiscan intravenously. Within a minute of injection, 30 mCi of sestamibi was given intravenously. Images were obtained using the SPECT gamma camera interlaced with the gating device. Images were obtained in supine position. Resting perfusion study was performed on 10/10/2023. Patient was administered 30 mCi of sestamibi intravenously at rest. Images were then obtained in supine position. Images obtained with and without CT attenuation. Total DLP 73 mGy-cm. Images were processed with the software and compared side to side in short axis, horizontal long axis and vertical long axis views. Findings: The stress perfusion study showed non attenuated images show some thinning in the apex as well as reduced uptake in the basal lateral wall of the myocardium. Attenuation corrected images show normal uptake of radiotracer. The gated study shows normal LV systolic function with calculated LVEF of 67%. LV cavity is normal in size. The gated study shows normal systolic wall thickening and contraction of segments. Resting study shows no change in perfusion pattern compared to stress perfusion study. Gating at rest reveals normal systolic wall motion with ejection fraction at 63%. The findings are consistent with no significant reversible defect suggestive ischemia likely normal myocardial perfusion. NM/NM cardiolite stress test Impression: 1. Myocardial perfusion imaging study shows likely normal myocardial 2. Gated LVEF is 67% 3. Transient ischemic dilatation not present EKG is nondiagnostic for ischemia
--- NOTE | 2023-10-04 09:04 | CA_ITS ---
Acquisition Time: 2023-10-04 09:24:30 Total Exercise Time: 00:02:25 Test Indications: Dyspnea CHEST PAIN Medications: SEE H Protocol: LUCIANO Max HR: 153 BPM 95% of Pred: 160 BPM Max BP: 152/064 mmHG Max Work Load: 4.6 METS Exercise stress test with exercise 2 min 25 sec of Luciano protocol achieving 83% with request to stop with moderate SOB, with 7/10 mid chest pressure, without arrhythmias, with normotensive response to exercise, with nondiagbnoistic EKGs. Patient assisted to chair. Once breathing, pain, and blood pressure returned to baseline test changed to Lexiscan. Lexiscan injection while sitting and kicking her legs, without anginal symptoms, without arrhythmias, with normotenive response to injection, with nondiagnosiitic EKGs. Aminophylline 75mg given to reverse Lexiscan. Nuclear images pending. Test reviewed with Dr. Ulrich Referred By: Aristides Connolly Overread By: Jemma Davis
== END ==
LOC: HO.CARD 09:02
PROVIDERS: Visit Provider Internal Medicine
DX: R07.89 Other chest pain (principal); R07.9 Chest pain, unspecified
CPT/HCPCS: 78452; 93017; A9500; J0280; J2785

== ENCOUNTER → 2023-10-04 09:04 | Outpatient (BNV) | payer OTHER, SELFPAY | PROVIDERS: Visit Provider Nurse Practitioner | DX: R07.2 Precordial pain (principal) | CPT/HCPCS: 78452; 93016; 93018 ==

== ENCOUNTER 2023-10-09 11:31 | Outpatient (REF) | payer OTHER, SELFPAY ==
[2023-10-09 11:50] LABS: MANUAL DIFF FLAG NO
[2023-10-09 12:44] LABS: Basophils Percent Auto 0.6 % (0-2); Eosinophils Absolute Auto 0.4 X10*3/uL (0.0-0.4); Eosinophils Percent Auto 5.1 % (0-4); Hematocrit 38.3 % (37.0-47.0); Hemoglobin 12.8 g/dl (12.0-16.0); Imm Gran Abs Auto 0.02 X10*3/uL (0.00-0.03); Imm Gran Pct Auto 0.3 % (0.0-0.4); Lymphocytes Absolute Auto 1.8 X10*3/uL (1.2-4.9); Lymphocytes Percent Auto 26.2 % (20-40); Mean Corpuscular HGB Conc 33.4 g/dl (31.0-35.0); Mean Corpuscular Hemoglobin 29.6 pg (27.0-33.0); Mean Corpuscular Volume 88.5 fL (80.0-98.0); Mean Platelet Volume 10.4 fL (9.4-12.3); Monocytes Absolute Auto 0.5 X10*3/uL (0.1-1.2); Monocytes Percent Auto 6.5 % (2-11); Neutrophils Absolute Auto 4.2 x10*3/uL (2.0-8.3); Neutrophils Percent Auto 61.3 % (45-73); Platelet Count 236 X10*3/uL (160-400); Red Blood Count 4.33 X10*6/uL (4.20-5.50); Red Cell Distribution Width 13.2 % (11.0-16.0); White Blood Count 6.9 X10*3/uL (4.8-10.8)
[2023-10-09 12:50] LABS: Estimated Average Glucose 123 mg/dL; Hemoglobin A1c % 5.9 % (<6.0)
[2023-10-09 13:22] LABS: Alanine Aminotransferase 17 U/L (0-31); Albumin Level 3.8 g/dL (3.5-5.0); Alkaline Phosphatase 81 U/L (39-117); Anion Gap 11 (12-20); Aspartate Amino Transferase 17 U/L (5-31); Bilirubin Total 0.5 mg/dL (0.0-1.0); Blood Urea Nitrogen 7 mg/dL (9-16); Carbon Dioxide 24 mmol/L (22-29); Chloride 109 mmol/L (96-108); Estimated Glomerular Filt Rate 59; Glucose Random 112 mg/dL (60-115); Potassium 4.3 mmol/L (3.3-5.1); Sodium 140 mmol/L (135-145); Total Protein 7.2 g/dL (6.5-8.0)
[2023-10-09 15:31] LABS: CT PCR NOT DETECTED (Not Detect.); NG PCR NOT DETECTED (Not Detect.)
[2023-10-13 07:09] LABS: HIV RNA PCR Qn Copies NOT DETECTED copies/mL (NOT DETECTED); HIV RNA PCR Qn Log Copies NOT DETECTED (NOT DETECTED)
[2023-10-17 13:34] LABS: IGF-1 (Somatomedin C) 50 ng/mL (41-279); IGF-1 Z Score (Female) -1.8 SD (-2.0 - +2.0)
== END 2023-10-09 11:32 | disposition home or self-care (01) ==
LOC: HO.LAB 11:31
PROVIDERS: PCP Student in an Organized Health Care Education/Training Program; Visit Provider Student in an Organized Health Care Education/Training Program
DX: B20 Human immunodeficiency virus [HIV] disease (principal); E88.1 Lipodystrophy, not elsewhere classified; T37.5X5A Adverse effect of antiviral drugs, initial encounter
CPT/HCPCS: 0353U; 80053; 83036; 84305; 85025; 87536

== ENCOUNTER 2023-10-12 11:15 | Outpatient (REF) | payer OTHER, SELFPAY ==
[2023-10-12 13:42] LABS: Cholesterol 206 mg/dL (<200); HDL Cholesterol 49 mg/dL (>40); LDL Cholesterol Calculated 124 mg/dL (<100); Triglycerides 169 mg/dL (<150)
[2023-10-12 13:51] LABS: TSH reflex Free T4 1.26 uIU/mL (0.32-4.0)
[2023-10-12 14:04] LABS: Creatinine Urine 130.29 mg/dL; Microalbum/Creatinine Ratio Ur 11.5 ug/mg cr (<30)
== END 2023-10-12 11:16 | disposition home or self-care (01) ==
LOC: HO.HHCL 11:15
PROVIDERS: Visit Provider Family Medicine
DX: I10 Essential (primary) hypertension (principal); Z13.29 Encounter for screening for other suspected endocrine disorder
CPT/HCPCS: 36415; 80061; 82043; 82570; 84443

== ENCOUNTER 2023-10-16 13:10 | Outpatient (AMB) | payer OTHER, SELFPAY ==
[2023-10-16 13:41] VITALS: BP 130/68; PULSE 55; BMI 33.1
--- NOTE | 2023-10-16 13:41 | A.OFFVIS_ITS ---
Intake Vital Signs 10/16/23 13:41 Height 5 ft 2 in Weight 180 lb 12.465 oz BMI 33.1 BP 130/68 Blood Pressure Location Lt brachial Position Sitting Pulse 55 Pulse Source Monitor Intake Visit Reasons: r/s 2 mos f/u s/p echo/mib Intake Note: 2 month follow up stress test and echo pt is feeling chest pain Mobile Homes Repairer Required: Yes Mobile Homes Repairer Name: [id number] Allergies Penicillins [PENICILLINS] Allergy (Intermediate, Verified 06/06/23 12:50) ITCHING sulfamethoxazole [From BACTRIM] Allergy (Intermediate, Verified 06/06/23 12:50) RASH trimethoprim [From BACTRIM] Allergy (Intermediate, Verified 06/06/23 12:50) RASH morphine [Morphine] Allergy (Mild, Verified 06/06/23 12:50) THROAT SWELLING Sulfa (Sulfonamide Antibiotics) Allergy (Mild, Verified 06/06/23 12:50) RASH/HEADACHE acetaminophen [Percocet] Allergy (Unknown, Verified 06/06/23 12:50) redness, swelling, itchy oxycodone [Percocet] Allergy (Unknown, Verified 06/06/23 12:50) redness, swelling, itchy Biaxin Allergy (Unknown, Uncoded 06/06/23 12:50) itchy HPI HPI Comments History of Present Illness Details 62-year-old female presents today for a follow-up. She had a stress test and echocardiogram performed. She reports she still gets some pressure on and off. At rest and with exertion. She get short of breath with exertion and her inhaler helps. The shortness of breath and chest discomfort often happen tog ether. [facility] Medical History (Updated 10/16/23 @ 14:11 by Jemma Davis NP) Dyspnea on exertion Essential hypertension Surgical History Hx of colonoscopy Hx of tubal ligation History of carpal tunnel surgery History of back surgery Hx of eye surgery Hx of cholecystectomy Family History Father Stomach cancer Mother Alzheimer disease Type 2 diabetes mellitus Hyperlipidemia Family/Other HTN (hypertension) Sleep apnea Diabetes Maternal Uncle FH: prostate cancer Stomach cancer Alzheimer disease Paternal Uncle Stomach cancer Social History Alcohol intake: current Alcohol intake frequency: does not drink Review of Systems Const Denies weakness ENT Denies dizziness Card Denies chest pain, Denies chest pain with activity, Denies syncope, Denies rapid heart rate, Denies pedal edema, Denies edema, Denies leg edema, Denies lightheadedness, Denies palpitations, Denies dyspnea, Denies dyspnea on exertion and Denies orthopnea Resp Denies cough, Denies dyspnea and Denies dyspnea on exertion GI Denies hematochezia and Denies change in stool character Musc Denies abnormal gait, Denies muscle cramps, Denies muscle weakness, Denies numbness, Denies radiating pain into limb and Denies tingling Neuro Denies abnormal gait, Denies dizziness, Denies syncope, Denies numbness, Denies tingling and Denies weakness Endo Denies palpitations Physical Exam Vital Signs: Last Vital Signs Pulse 55 10/16/23 13:41 BP 130/68 10/16/23 13:41 BMI result Body Mass Index 33.1 Office Procedures EKG Details: EKG today. Sinus Bradycardia. Rate 55 bpm. QRS 82ms. QTc 409ms. MT 138ms. [id number], Complete Results Reviewed Results Reviewed: Echo Conclusions: - The left ventricular systolic function is normal. The calculated ejection fraction is 63% by biplane method. - No obvious valvular pathology seen on this study. NM/NM cardiolite stress test Impression: 1. Myocardial perfusion imaging study shows likely normal myocardial 2. Gated LVEF is 67% 3. Transient ischemic dilatation not present Assessment & Plan Assessment & Plan (1) Dyspnea on exertion: Code(s): R06.09 - Other forms of dyspnea (2) Chest pressure: Code(s): R07.89 - Other chest pain Plan Shortness of breath and chest pressure on exertion and chest pressure at rest. Echo showed normal EF of 63% and nuclear imaging shows no suggestion of ischemia / likely normal myocardial perfusion. Reassurance offered. Patient states inhaler aide when she has these episodes. Will refer to pulmonary for evaluation. ED care for symptoms if needed. Will return in a few months or sooner if needed. Patient agrees to care Orders: Referrals Pulmonary Medicine Referral R06.09 - Other forms of dyspnea Coding Level of Care Code Est Pt Level 3 (68465) Diagnoses Dyspnea on exertion R06.09 Chest pressure R07.89 CPT Codes EKG - CPT: 22107-[id number], Complete ([id number])
== END 2023-10-16 14:25 | disposition home or self-care (01) ==
PROVIDERS: Visit Provider Nurse Practitioner
DX: R06.09 Other forms of dyspnea (principal); R07.89 Other chest pain
CPT/HCPCS: 93010; 99213

== ENCOUNTER → 2023-10-16 13:10 | Outpatient (BNVA) | payer OTHER, SELFPAY | PROVIDERS: Visit Provider Nurse Practitioner | DX: R06.09 Other forms of dyspnea (principal); R07.89 Other chest pain; R00.1 Bradycardia, unspecified | CPT/HCPCS: 93005; 99212 ==

== ENCOUNTER 2023-10-18 13:27 | Outpatient (REF) | payer OTHER, SELFPAY | END 2023-10-18 13:28 | disposition home or self-care (01) | LOC: HO.LAB 13:27 | PROVIDERS: PCP Family Medicine; Visit Provider Family Medicine | DX: I10 Essential (primary) hypertension (principal) | CPT/HCPCS: 86850; 86900; 86901 ==

== ENCOUNTER 2023-11-12 16:41 | Outpatient (REF) | payer OTHER, SELFPAY | END 2023-11-12 16:42 | disposition home or self-care (01) | LOC: HO.HHCLNP 16:41 | PROVIDERS: Visit Provider Advanced Practice Midwife | DX: Z01.419 Encounter for gynecological examination (general) (routine) without abnormal findings (principal); D01.3 Carcinoma in situ of anus and anal canal; B20 Human immunodeficiency virus [HIV] disease | CPT/HCPCS: 88112; 88142 ==

== ENCOUNTER 2023-11-16 09:27 | Outpatient (AMB) | payer OTHER, SELFPAY ==
--- NOTE | 2023-11-16 09:29 | A.OFFVIS_ITS ---
Vital Signs 11/16/23 09:30 Height 5 ft 2 in Weight 184 lb 1.376 oz BMI 33.7 BP 100/62 Blood Pressure Location Rt brachial Position Sitting Pulse 65 Pulse Source Doppler Pulse Oximetry (%) 96 Oxygen Delivery Method Room Air Intake Visit Reasons: dyspnea Allergies Penicillins [PENICILLINS] Allergy (Intermediate, Verified 11/16/23 09:34) ITCHING sulfamethoxazole [From BACTRIM] Allergy (Intermediate, Verified 11/16/23 09:34) RASH trimethoprim [From BACTRIM] Allergy (Intermediate, Verified 11/16/23 09:34) RASH morphine [Morphine] Allergy (Mild, Verified 11/16/23 09:34) THROAT SWELLING Sulfa (Sulfonamide Antibiotics) Allergy (Mild, Verified 11/16/23 09:34) RASH/HEADACHE acetaminophen [Percocet] Allergy (Unknown, Verified 11/16/23 09:34) redness, swelling, itchy oxycodone [Percocet] Allergy (Unknown, Verified 11/16/23 09:34) redness, swelling, itchy Biaxin Allergy (Unknown, Uncoded 06/06/23 12:50) itchy HPI HPI dyspnea: Details: 62-year-old lady, nonsmoker, with underlying HIV on Biktarvy recent panel overall cardiac workup referred for evaluation of pulmonary component to татьяна ent's symptoms of dyspnea on exertion, and also more recent cough that has been ongoing for approximately 1 months and gets worse after eating and when laying down. Patient is on famotidine for underlying GERD with suboptimal control of his symptoms. She does complain of multiple environmental allergies. She denies family history of lung disease. She denies exposure to industrial dusts. Patient is using Advair 230 and albuterol MDI to control her underlying asthma symptoms. [facility] Medical History (Updated 11/16/23 @ 10:05 by Dez Aiken MD) Dyspnea on exertion Essential hypertension Surgical History Hx of colonoscopy Hx of tubal ligation History of carpal tunnel surgery History of back surgery Hx of eye surgery Hx of cholecystectomy Family History Father Stomach cancer Mother Alzheimer disease Type 2 diabetes mellitus Hyperlipidemia Family/Other HTN (hypertension) Sleep apnea Diabetes Maternal Uncle FH: prostate cancer Stomach cancer Alzheimer disease Paternal Uncle Stomach cancer Social History Alcohol intake: current Alcohol intake frequency: does not drink Review of Systems Const Denies daytime sleepiness, Denies excessive sweating, Denies fatigue, Denies fever(s), Denies lethargy, Denies malaise, Denies night sweats, Denies snoring and Denies weight loss Eyes Denies blurry vision and Denies itchy eyes ENT Denies nasal congestion, Denies post nasal drip, Denies sinus pain, Denies sinus pressure and Denies other ( Thrush) Card Denies chest pain, Denies pedal edema, Denies dyspnea, Denies orthopnea and Denies paroxysmal nocturnal dyspnea Resp Reports cough, Denies hemoptysis, Denies excessive phlegm production, Denies dyspnea, Denies snoring and Denies wheezing GI Denies abdominal pain and Denies heartburn Musc Denies myalgias, Denies arthralgias and Denies joint swelling Skin/Breast Denies rash Neuro Denies memory loss and Denies seizure-like activity Psych Denies abnormal sleep pattern, Denies anxiety and Denies memory loss Endo Denies excessive sweating, Denies fatigue and Denies heat intolerance Eber/Lymph Denies easy bruising Aller/Immun Denies itchy eyes, Denies seasonal rhinorrhea and Denies wheezing Physical Exam Vital Signs: Last Vital Signs Pulse 65 11/16/23 09:30 BP 100/62 11/16/23 09:30 Pulse Ox 96 11/16/23 09:30 Oxygen Delivery Method Room Air 11/16/23 09:30 BMI result Body Mass Index 33.7 Const General: no acute distress and alert Nutritional Appearance: not obese Orientation/consciousness: Other orientation findings ( oriented) HEENT Head: Yes atraumatic Eyes General: appearance normal, both eyes and all related structures Sclerae: sclerae normal EOM: EOMs intact bilaterally Neck Neck: Yes supple Lymphatic: no lymphadenopathy noted Resp Effort & Inspection: normal respiratory effort and no use of accessory muscles Auscultation: clear to auscultation bilaterally Cardio Rate: regular rate Rhythm: regular rhythm Heart sounds: no gallops, no murmurs and no rubs Skin General skin exam: other ( warm) Extrem General: No clubbing, No cyanosis and No edema Assessment & Plan Assessment & Plan (1) Cough: Code(s): R05.9 - Cough, unspecified Category: Medical Plan: Appears to have significant GERD component. Will start on omeprazole 40 mg b.i.d.. (2) Dyspnea on exertion: Code(s): R06.09 - Other forms of dyspnea Category: Medical Plan: At this time patient is not complain of dyspnea on exertion. Will obtain chest x-ray. (3) Asthma: Code(s): J45.909 - Unspecified asthma, uncomplicated Category: Medical Plan: Underlying asthma of unclear severity will obtain full PFT for further evaluation, will continue on current regimen of high-dose Advair, duo nebs, and albuterol MDI. Orders: Orders XR chest 2V Today R05.9 - Cough, unspecified PFT pulmonary function test Today R05.9 - Cough, unspecified Medications: New omeprazole 40 mg PO BID 60 caps 6RF 30 days Coding Level of Care Code New Pt Level 4 (09746) Diagnoses Cough R05.9 Dyspnea on exertion R06.09 Asthma J45.909
[2023-11-16 09:30] VITALS: BP 100/62; PULSE 65; O2SAT 96; BMI 33.7
== END 2023-11-16 10:00 | disposition home or self-care (01) ==
PROVIDERS: PCP Student in an Organized Health Care Education/Training Program; Visit Provider Internal Medicine Pulmonary Disease
DX: R05.9 Cough, unspecified (principal); R06.09 Other forms of dyspnea; J45.909 Unspecified asthma, uncomplicated
CPT/HCPCS: 99204

== ENCOUNTER → 2023-11-16 09:27 | Outpatient (BNVA) | payer OTHER, SELFPAY | PROVIDERS: PCP Student in an Organized Health Care Education/Training Program; Visit Provider Internal Medicine Pulmonary Disease | DX: R05.9 Cough, unspecified (principal); R06.09 Other forms of dyspnea; J45.909 Unspecified asthma, uncomplicated | CPT/HCPCS: 99202 ==

== ENCOUNTER 2023-11-19 11:08 | Outpatient (REF) | payer OTHER, SELFPAY ==
--- NOTE | ~2023-11-19 | XR_ITS ---
EXAMINATION: XR CHEST CLINICAL INFORMATION: Cough COMPARISON: 04/29/2019 TECHNIQUE: 2 views of the chest were obtained. FINDINGS: No significant abnormality is noted involving the heart, lungs, mediastinum, bony thorax or soft tissues. XR/XR chest 2V IMPRESSION: Unremarkable examination.
== END 2023-11-19 11:09 | disposition home or self-care (01) ==
LOC: HO.XRAY 11:08
PROVIDERS: PCP Family Medicine; Visit Provider Internal Medicine Pulmonary Disease
DX: R05.9 Cough, unspecified (principal)
CPT/HCPCS: 71046

== ENCOUNTER 2023-12-10 16:42 | Outpatient (REF) | payer OTHER, SELFPAY ==
[2023-12-11 09:05] LABS: Bacterial Vaginosis PCR POSITIVE (Negative); Candida Group PCR NOT DETECTED (Not Detect); Candida glab krusei PCR NOT DETECTED (Not Detect); Trichomonas vaginalis PCR NOT DETECTED (Not Detect)
[2023-12-24 04:49] LABS: HPV MRNA E6/E7 Rectal DETECTED
[2023-12-26 15:39] LABS: HPV 16 RNA, Rectal NOT DETECTED; HPV 18/45 RNA Rectal NOT DETECTED
== END 2023-12-10 16:43 | disposition home or self-care (01) ==
LOC: HO.HHCLNP 16:42
PROVIDERS: Visit Provider Student in an Organized Health Care Education/Training Program
DX: B20 Human immunodeficiency virus [HIV] disease (principal)
CPT/HCPCS: 0352U; 36415; 87624; 87625; 88112

== ENCOUNTER 2023-12-13 12:51 | Outpatient (REF) | payer OTHER, SELFPAY ==
[2023-12-13 14:34] LABS: Appearance Urine Clear; Color Urine Yellow; Glucose Urine UA Negative (Negative); Leukocyte Esterase Urine Moderate (2+) (Negative); Nitrite Urine Negative (Negative); UMIC TRIGGER UACC YES; Urine Blood Negative (Negative); Urine Ketones Negative (Negative); Urine Protein Negative (Neg-Trace)
[2023-12-13 14:54] LABS: Bacteria Urine None Seen (None Seen); Hyaline Casts Urine 0-2 /LPF (0-2); RBC Urine 0-2 /HPF (0-2); Squamous Epithelial Cell Urine 0-2 /HPF (0-2); WBC Urine 0-5 /HPF (0-5)
== END 2023-12-13 12:52 | disposition home or self-care (01) ==
LOC: HO.CHCLNP 12:51
PROVIDERS: Visit Provider Family Medicine
DX: N76.0 Acute vaginitis (principal); B96.89 Other specified bacterial agents as the cause of diseases classified elsewhere
CPT/HCPCS: 81001

== ENCOUNTER 2023-12-14 10:55 | Outpatient (REF) | payer OTHER, SELFPAY | END 2023-12-14 10:56 | disposition home or self-care (01) | LOC: HO.MAMMO 10:55 | PROVIDERS: PCP Student in an Organized Health Care Education/Training Program; Visit Provider Advanced Practice Midwife | DX: Z12.31 Encounter for screening mammogram for malignant neoplasm of breast (principal) | CPT/HCPCS: 77063; 77067 ==

== ENCOUNTER → 2023-12-14 11:45 | Outpatient (BNV) | payer OTHER, SELFPAY | PROVIDERS: PCP Student in an Organized Health Care Education/Training Program; Visit Provider Radiology Diagnostic Radiology | DX: Z12.31 Encounter for screening mammogram for malignant neoplasm of breast (principal) | CPT/HCPCS: 77063; 77067 ==

== ENCOUNTER 2024-01-18 13:46 | Outpatient (REF) | payer OTHER, SELFPAY ==
--- NOTE | ~2024-01-18 | MM_ITS ---
EXAMINATION: BONE DENSITOMETRY CLINICAL INDICATION: Patient is postmenopausal, HIV positive and needs to rule out osteoporosis. COMPARISON: Baseline BD dated 04/29/2021. TECHNIQUE: Using a [employer] DXA System (software version: 13.1) manufactured by [employer], dual-energy x-ray absorptiometry was performed of the lumbar spine and left hip. The images are of good technical quality. Summary results are attached. FINDINGS: LEFT FEMUR, NECK: Current: BMD 1.043 g/cm2, Z-score 0.9, T-score 0.0, normal. Baseline: BMD 0.824 g/cm2. LEFT FEMUR, TOTAL: Current: BMD 1.189 g/cm2, Z-score 2.0, T-score 1.4, normal, 22.2% increase from baseline (<5% change is not significant). Baseline: BMD 0.973 g/cm2. AP SPINE L1-L3 (excluding L4): The data of L1-L4 has been changed to exclude the L4 vertebral body, because metallic artifact at this level may cause overestimation of lumbar spine density. Current: BMD 1.305 g/cm2, Z-score 1.8, T-score 1.1, normal, 4.0% decrease from baseline (<5% change is not significant). Baseline: BMD 1.360 g/cm2. IDENTIFIED RISK FACTORS: Early menopause, secondary osteoporosis (type 1 diabetes), glucocorticoids (chronic), height loss, rheumatoid arthritis, thiazide. HISTORY OF FRACTURE: None listed. MEDICATIONS: Multivitamin, vitamin D. MM/XR DEXA axial skeleton IMPRESSION: 1. DIAGNOSIS: Normal bone density based on the lowest T-score value of 0.0 in the femoral neck applying World Health Organization criteria. 2. 10-YEAR FRACTURE RISK PREDICTION, FRAX: According to the guidelines, FRAX calculation should only be performed on patients in the osteopenia bone density category. Therefore, FRAX was not performed on this patient.? 3. Treatment Recommendations: NOF guidelines recommend consideration for treatment in postmenopausal women and men age 50 and older presenting with the following: -A hip or vertebral (clinical or morphometric) fracture. -T-score less than or equal to -2.5 at the femoral neck or spine after appropriate evaluation to exclude secondary causes. -Low bone mass at the hip or spine and a 10-year fracture probability by FRAX of greater than or equal to 3% for hip fracture or greater than or equal to 20% for major osteoporotic fracture based on the [place] adapted WHO algorithm. 4. Other Recommendations: All treatment decisions require clinical judgment and consideration of individual patient factors, including patient preferences, comorbidities, previous drug use, risk factors not captured in the FRAX model (e.g. frailty, falls, vitamin D deficiency, increased bone turnover, interval significant decline in bone density) and possible under or overestimation of fracture risk by FRAX. FUTURE SCAN RECOMMENDATION: People with diagnosed cases of osteoporosis or at high risk for fracture should have regular bone mineral density tests. For patients eligible for Medicare, routine testing is allowed once every 2 years. The testing frequency can be increased to one year for patients who have rapidly progressing disease, those who are receiving or discontinuing medical therapy to restore bone mass, or have additional risk factors.
== END 2024-01-18 13:47 | disposition home or self-care (01) ==
LOC: HO.MAMMO 13:46
PROVIDERS: PCP Student in an Organized Health Care Education/Training Program; Visit Provider Student in an Organized Health Care Education/Training Program
DX: Z13.820 Encounter for screening for osteoporosis (principal); Z78.0 Asymptomatic menopausal state
CPT/HCPCS: 77080

== ENCOUNTER 2024-01-21 11:11 | Outpatient (AMB) | payer OTHER, SELFPAY ==
--- NOTE | 2024-01-21 11:24 | MHC.OFFVIS ---
Vital Signs 01/21/24 11:26 Height 5 ft 2 in Weight 181 lb BMI 33.1 BP 135/76 Blood Pressure Location Rt brachial Position Sitting Pulse 100 Intake Visit Reasons: Abnormal anal pap Intake Note: This patient was referred by Dr. Kaur for an assessment for abnormal anal pap. Patient c/o; reports no complaints. 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 Representative Services: Forensic Science Examiner Offered & Declined Accompanied by: Daughter Allergies Penicillins [PENICILLINS] Allergy (Intermediate, Verified 01/21/24 11:29) ITCHING sulfamethoxazole [From BACTRIM] Allergy (Intermediate, Verified 01/21/24 11:29) RASH trimethoprim [From BACTRIM] Allergy (Intermediate, Verified 01/21/24 11:29) RASH morphine [Morphine] Allergy (Mild, Verified 01/21/24 11:29) THROAT SWELLING Sulfa (Sulfonamide Antibiotics) Allergy (Mild, Verified 01/21/24 11:29) RASH/HEADACHE acetaminophen [Percocet] Allergy (Unknown, Verified 01/21/24 11:29) redness, swelling, itchy oxycodone [Percocet] Allergy (Unknown, Verified 01/21/24 11:29) redness, swelling, itchy Biaxin Allergy (Unknown, Uncoded 01/21/24 11:29) itchy Medication List - Last Reconciled 01/21/24 by Jewel Montelongo MD albuterol sulfate 90 mcg/actuation 0 mcg inhalation amlodipine 10 mg PO DAILY ascorbic acid (vitamin C) (Vitamin C) 500 mg PO BID cuicekpgu-krnzxdgp-ykpbfzs ala 50-200-25 mg (Biktarvy) 1 tab PO DAILY rvxjjqejzj-xyhbturcpwmlc-eafg 50-300-40 mg (Fioricet) 1 cap PO TID PRN cholecalciferol (vitamin D3) 50 mcg PO DAILY cyanocobalamin (vitamin B-12) 1,000 mcg PO DAILY docusate sodium (Colace) 100 mg PO .DAILY WITH FOOD PRN 30 days famotidine 40 mg PO BEDTIME 30 days fluticasone propion-salmeterol 230-21 mcg/actuation 2 puffs inhalation BID fluticasone propion-salmeterol 250-50 mcg/dose 1 ea inhalation BID fluticasone propionate 50 mcg/actuation sprays intranasal hydrochlorothiazide 25 mg PO DAILY ipratropium-albuterol 0.5 mg-3 mg(2.5 mg base)/3 mL 3 mL inhalation Q4-6H PRN 30 days uhxycw-uhmdziak-xuraoms 3,000-9,500- 15,000 unit (Creon) 1 cap PO .TIDAC 30 days loratadine 10 mg PO DAILY losartan 50 mg PO DAILY metoprolol succinate ER 50 mg PO DAILY nabumetone 500 mg PO BID omeprazole 40 mg PO BID 30 days psyllium husk (aspartame) 3.4 gram/5.8 gram (Metamucil Sugar-Free (aspartame)) 1 ea PO BID rosuvastatin 20 mg PO DAILY sertraline 50 mg PO DAILY tramadol 50 mg PO TID PRN zolpidem 10 mg PO BEDTIME PRN HPI HPI Abnormal anal pap: Details: [age] year female referred because of an abnormal anal Pap. She has known HIV. She says she had a previous excision of an area of abnormality in the anus with an abnormal Pap smear in the past. She she had undergone an anal Pap recently because of her history of HIV. Showed atypical squamous cells of undetermined significance (ASCUS,rare). The mRNA assay did not detect any HPV type 16 or 18. She denies any bleeding or any problems with her anus. She denies any history of ano-receptive intercourse although she says her HIV was from sexual transmission in the past. [facility] Medical History (Updated 01/21/24 @ 11:55 by Jewel Montelongo MD) Abnormal anal Papanicolaou smear Dyspnea on exertion Essential hypertension Surgical History Hx of colonoscopy Hx of tubal ligation History of carpal tunnel surgery History of back surgery Hx of eye surgery Hx of cholecystectomy Family History Father Stomach cancer Mother Alzheimer disease Type 2 diabetes mellitus Hyperlipidemia Family/Other HTN (hypertension) Sleep apnea Diabetes Maternal Uncle FH: prostate cancer Stomach cancer Alzheimer disease Paternal Uncle Stomach cancer Social History Alcohol intake: current Alcohol intake frequency: does not drink Review of Systems Const Denies chills and Denies fever(s) Card Denies chest pain, Denies dyspnea and Denies dyspnea on exertion Resp Denies cough, Denies dyspnea and Denies dyspnea on exertion GI Denies hematochezia and Denies change in bowel habits Denies hematuria Musc Denies back pain and Denies limited range of motion Neuro Denies focal weakness and Denies convulsions Psych Denies depression and Denies mood swings Physical Exam Vital Signs: Last Vital Signs Pulse 100 01/21/24 11:26 BP 135/76 01/21/24 11:26 BMI result Body Mass Index 33.1 Const General: comfortable and no acute distress Orientation/consciousness: patient oriented x3 Neck Neck: Yes no lymphadenopathy Resp Auscultation: clear to auscultation bilaterally Cardio Rhythm: regular rhythm GI Other: Rectal exam shows no perianal lesions, no perianal abnormality of the skin Palpation (GI): Soft to palpation, nontender and no guarding Neuro General: patient oriented x3 Office Procedures Anoscopy She was in sirisha-knife position. The anoscope was gently inserted. A full examination of the anal canal was done. There was no abnormal anal mucosa or skin noted. There was no irregularity of the anoderm or the anal mucosa. There was no lesion or ulceration. There was no induration on digital exam. She has no tenderness. [id number] Assessment & Plan Assessment & Plan (1) Abnormal anal Papanicolaou smear: Code(s): R85.619 - Unspecified abnormal cytological findings in specimens from anus Category: Medical Plan: She had a recent abnormal anal Pap showing abnormal squamous cells of undetermined significance, although rare. Anoscopy does not reveal any abnormality or any suggestion of a high-grade lesion . One option is to proceed with high-resolution anoscopy. However, in view of the absence of high risk HPV types along with the rare atypical cells, I told him I will repeat her anoscopy in about 6 months. We can proceed with HRA after that depending on her examination. She says she understands the plan well and is comfortable with this. Coding Level of Care Code New Pt Level 3 (23243) Diagnoses Abnormal anal Papanicolaou smear R85.619 CPT Codes Details - CPT: 84451-[id number] ([id number])
[2024-01-21 11:26] VITALS: BP 135/76; PULSE 100; BMI 33.1
== END 2024-01-21 11:52 | disposition home or self-care (01) ==
PROVIDERS: PCP Student in an Organized Health Care Education/Training Program; Visit Provider Surgery
DX: R85.619 Unspecified abnormal cytological findings in specimens from anus (principal)
CPT/HCPCS: 46600; 99203

== ENCOUNTER → 2024-01-21 11:11 | Outpatient (BNVA) | payer OTHER, SELFPAY | PROVIDERS: PCP Student in an Organized Health Care Education/Training Program; Visit Provider Surgery | DX: R85.619 Unspecified abnormal cytological findings in specimens from anus (principal) | CPT/HCPCS: 46600; 99202 ==

== ENCOUNTER 2024-04-18 10:26 | Outpatient (REF) | payer OTHER, SELFPAY ==
[2024-04-18 11:23] LABS: Appearance Urine Clear; Color Urine Yellow; Glucose Urine UA Negative (Negative); Leukocyte Esterase Urine Trace (Negative); Nitrite Urine Negative (Negative); Specific Gravity - Urine 1.025 (1.005-1.025); UMIC TRIGGER UACC YES; Urine Blood Negative (Negative); Urine Ketones Negative (Negative); Urine Protein Trace mg/dL (Neg-Trace)
[2024-04-18 11:27] LABS: Bacteria Urine None Seen (None Seen); Hyaline Casts Urine 0-2 /LPF (0-2); RBC Urine 0-2 /HPF (0-2); Squamous Epithelial Cell Urine 0-2 /HPF (0-2); WBC Urine 0-5 /HPF (0-5)
[2024-04-18 11:28] LABS: MANUAL DIFF FLAG NO
[2024-04-18 11:33] LABS: Basophils Percent Auto 0.6 % (0-2); Eosinophils Absolute Auto 0.4 X10*3/uL (0.0-0.4); Eosinophils Percent Auto 5.5 % (0-4); Hematocrit 35.5 % (37.0-47.0); Hemoglobin 11.9 g/dl (12.0-16.0); Imm Gran Abs Auto 0.02 X10*3/uL (0.00-0.03); Imm Gran Pct Auto 0.3 % (0.0-0.4); Lymphocytes Absolute Auto 2.3 X10*3/uL (1.2-4.9); Lymphocytes Percent Auto 35.7 % (20-40); Mean Corpuscular HGB Conc 33.5 g/dl (31.0-35.0); Mean Corpuscular Hemoglobin 29.2 pg (27.0-33.0); Mean Platelet Volume 10.8 fL (9.4-12.3); Monocytes Absolute Auto 0.5 X10*3/uL (0.1-1.2); Monocytes Percent Auto 7.2 % (2-11); Neutrophils Absolute Auto 3.2 x10*3/uL (2.0-8.3); Neutrophils Percent Auto 50.7 % (45-73); Platelet Count 203 X10*3/uL (160-400); Red Blood Count 4.08 X10*6/uL (4.20-5.50); White Blood Count 6.4 X10*3/uL (4.8-10.8)
[2024-04-18 12:43] LABS: Alanine Aminotransferase 14 U/L (0-31); Albumin Level 3.5 g/dL (3.5-5.0); Alkaline Phosphatase 61 U/L (39-117); Anion Gap 12 (12-20); Aspartate Amino Transferase 19 U/L (5-31); Bilirubin Total 0.4 mg/dL (0.0-1.0); Blood Urea Nitrogen 17 mg/dL (9-16); Calcium 9.2 mg/dL (8.4-10.2); Carbon Dioxide 23 mmol/L (22-29); Chloride 109 mmol/L (96-108); Estimated Glomerular Filt Rate 60; Glucose Random 132 mg/dL (60-115); Potassium 3.6 mmol/L (3.3-5.1); Sodium 140 mmol/L (135-145); Total Protein 7.6 g/dL (6.5-8.0)
[2024-04-19 04:29] LABS: Syphilis Screen Nonreactive (Nonreactive)
[2024-04-19 04:47] LABS: ~HepC Num1 1.57 S/CO (0.00-0.79); ~Hepatitis C Antibody Reactive (Nonreactive)
[2024-04-21 10:57] LABS: TS Negative Control Passed; TS Panel A 1; TS Panel B 1; TS Positive Control Passed; TSpotTB Negative (Negative)
[2024-04-22 02:33] LABS: HIV RNA PCR Qn Copies 347 copies/mL (NOT DETECTED); HIV RNA PCR Qn Log Copies 2.54 (NOT DETECTED)
[2024-04-22 15:28] LABS: HCV Log PCR <1.18 NOT DETECTED Log IU/mL (NOT DETECTED); HepC Viral Load <15 NOT DETECTED IU/mL (NOT DETECTED)
[2024-04-22 22:50] LABS: Absolute CD3 Count 1959 cells/uL (840-3060); Absolute CD4 Count 362 cells/uL (490-1740); Absolute CD8 Count 1564 cells/uL (180-1170); Absolute Lymphocytes 2268 cells/uL (850-3900); CD4 CD8 Ratio 0.23 (0.86-5.00); Percent CD3 Cells 86 % (57-85); Percent CD4 Cells 16 % (30-61); Percent CD8 Cells 69 % (12-42)
== END 2024-04-18 10:27 | disposition home or self-care (01) ==
LOC: HO.HHCL 10:26
PROVIDERS: Visit Provider Student in an Organized Health Care Education/Training Program
DX: B20 Human immunodeficiency virus [HIV] disease (principal); R30.0 Dysuria
CPT/HCPCS: 36415; 80053; 81001; 85025; 86359; 86360; 86481; 86780; 86803; 87522; 87536

== ENCOUNTER 2024-06-03 13:22 | Outpatient (REF) | payer OTHER, SELFPAY ==
[2024-06-04 08:24] LABS: ~HepC Num1 1.52 S/CO (0.00-0.79); ~Hepatitis C Antibody Reactive (Nonreactive)
[2024-06-05 13:48] LABS: HIV RNA PCR Qn Copies <20 DETECTED copies/mL (NOT DETECTED); HIV RNA PCR Qn Log Copies <1.30 DETECTED (NOT DETECTED)
[2024-06-05 14:43] LABS: HCV Log PCR <1.18 NOT DETECTED Log IU/mL (NOT DETECTED); HepC Viral Load <15 NOT DETECTED IU/mL (NOT DETECTED)
== END 2024-06-03 13:23 | disposition home or self-care (01) ==
LOC: HO.HHCL 13:22
PROVIDERS: Visit Provider Student in an Organized Health Care Education/Training Program
DX: Z21 Asymptomatic human immunodeficiency virus [HIV] infection status (principal)
CPT/HCPCS: 36415; 86803; 87522; 87536

== ENCOUNTER 2024-06-30 13:29 | Outpatient (AMB) | payer OTHER, SELFPAY ==
--- NOTE | 2024-06-30 13:54 | A.OFFVIS_ITS ---
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 Name: voice marrero [id number] Allergies Penicillins [PENICILLINS] Allergy (Intermediate, Verified 06/30/24 13:57) ITCHING sulfamethoxazole [From BACTRIM] Allergy (Intermediate, Verified 06/30/24 13:57) RASH trimethoprim [From BACTRIM] Allergy (Intermediate, Verified 06/30/24 13:57) RASH morphine [Morphine] Allergy (Mild, Verified 06/30/24 13:57) THROAT SWELLING Sulfa (Sulfonamide Antibiotics) Allergy (Mild, Verified 06/30/24 13:57) RASH/HEADACHE acetaminophen [Percocet] Allergy (Unknown, Verified 06/30/24 13:57) redness, swelling, itchy oxycodone [Percocet] Allergy (Unknown, Verified 06/30/24 13:57) redness, swelling, itchy Biaxin Allergy (Unknown, Uncoded 06/30/24 13:57) itchy Medication List - Last Reconciled 06/30/24 by MANDI Yadav albuterol sulfate 90 mcg/actuation 0 mcg inhalation amlodipine 10 mg PO DAILY ascorbic acid (vitamin C) (Vitamin C) 500 mg PO BID quzpsukfi-jqddqrxw-ucsehqm ala 50-200-25 mg (Biktarvy) 1 tab PO DAILY cholecalciferol (vitamin D3) 50 mcg PO DAILY fluticasone propion-salmeterol 230-21 mcg/actuation 2 puffs inhalation BID fluticasone propion-salmeterol 250-50 mcg/dose 1 ea inhalation BID fluticasone propionate 50 mcg/actuation sprays intranasal hydrochlorothiazide 25 mg PO DAILY ipratropium-albuterol 0.5 mg-3 mg(2.5 mg base)/3 mL 3 mL inhalation Q4-6H PRN 30 days losartan 50 mg PO DAILY metoprolol succinate ER 50 mg PO DAILY montelukast 10 mg PO DAILY nabumetone 500 mg PO BID omeprazole 40 mg PO BID 30 days rosuvastatin 40 mg PO DAILY sertraline 50 mg PO DAILY tesamorelin (Egrifta SV) mg subcut tramadol 50 mg PO TID PRN zolpidem 10 mg PO BEDTIME PRN HPI HPI r/s 04/24/24 6 mos followup (young): Details: Melissa is a 63-year-old female with past medical history of hypertension, HIV, asthma, chest discomfort who presents for follow-up. Today she reports that she continues to have pressure in her left upper chest region which occurs randomly and when she is doing activities like bending forward and cleaning her floors. Her left anterior chest has tenderness to palpation. She does follow with rheumatology for joint and arthritic pain. She has no other types of chest discomfort. Her breathing has been more comfortable. No PND, orthopnea or edema. No palpitations, lightheadedness, presyncope, syncope, falls. Taking meds as directed. [facility], [facility] Medical History Abnormal anal Papanicolaou smear Dyspnea on exertion Essential hypertension Surgical History Hx of colonoscopy Hx of tubal ligation History of carpal tunnel surgery History of back surgery Hx of eye surgery Hx of cholecystectomy Family History Father Stomach cancer Mother Alzheimer disease Type 2 diabetes mellitus Hyperlipidemia Family/Other HTN (hypertension) Sleep apnea Diabetes Maternal Uncle FH: prostate cancer Stomach cancer Alzheimer disease Paternal Uncle Stomach cancer Social History Alcohol intake: current Alcohol intake frequency: does not drink Review of Systems Const All systems reviewed & are unremarkable except as noted in HPI and below ENT Denies dizziness Card Reports chest pain, Denies chest pain at rest, Denies chest pain with activity, Denies rapid heart rate, Denies pedal edema, Denies edema, Denies leg edema, D enies lightheadedness, Denies palpitations, Denies dyspnea, Denies dyspnea on exertion and Denies orthopnea Resp Denies cough, Denies dyspnea and Denies dyspnea on exertion GI Denies hematochezia and Denies change in stool character Musc Details: joint pains from arthritis Denies abnormal gait, Denies limited range of motion, Denies muscle cramps, Denies muscle weakness, Denies numbness, Denies radiating pain into limb, Reports stiffness and Denies tingling Neuro Denies abnormal gait, Denies dizziness, Denies numbness and Denies tingling Endo Denies palpitations Physical Exam Vital Signs: Last Vital Signs Pulse 80 06/30/24 13:55 BP 132/62 06/30/24 13:55 BMI result Body Mass Index 33.4 Const General: cooperative, healthy appearing, comfortable and no acute distress Orientation/consciousness: patient oriented x3 Neck Neck: Yes normal visual inspection and Yes no JVD Resp Effort & Inspection: normal respiratory effort Auscultation: clear to auscultation bilaterally, no rales, no rhonchi and no wheezes Cardio Other: left chest palpation causes facial grimace and recoil Rate: regular rate Rhythm: regular rhythm Heart sounds: S1 normal heart sound present, S2 normal heart sound present, no murmurs and no rubs Neuro General: patient oriented x3 Extrem General: Yes normal to inspection, No no pedal edema and No calf tenderness Psych Appearance: grossly normal Mental Status: mental status grossly normal Speech and movement: Normal speech and movement present Results Reviewed Results Reviewed: 10/04/23 stress test: Protocol: JORJE Max HR: 153 BPM 95% of Pred: 160 BPM Max BP: 152/064 mmHG Max Work Load: 4.6 METS Exercise stress test with exercise 2 min 25 sec of Jorje protocol achieving 83% with request to stop with moderate SOB, with 7/10 mid chest pressure, without arrhythmias, with normotensive response to exercise, with nondiagbnoistic EKGs. Patient assisted to chair. Once breathing, pain, and blood pressure returned to baseline test changed to Lexiscan. Lexiscan injection while sitting and kicking her legs, without anginal symptoms, without arrhythmias, with normotenive response to injection, with nondiagnosiitic EKGs. Aminophylline 75mg given to reverse Lexiscan. Nuclear images pending. Test reviewed with Dr. Ulrich 10/10/23 Nuclear portion of stress test: 1. Myocardial perfusion imaging study shows likely normal myocardial 2. Gated LVEF is 67% 3. Transient ischemic dilatation not present 09/21/23 echo: - The left ventricular systolic function is normal. The calculated ejection fraction is 63% by biplane method. - No obvious valvular pathology seen on this study. Assessment & Plan Assessment & Plan (1) Chest pressure: Code(s): R07.89 - Other chest pain Category: Medical Plan: Report of pressure in her left upper chest which occurs randomly and with specific activities such as bending forward and when she cleans her floors. She has tenderness to the left anterior chest wall. She grimaces and pulls away. She says this is the discomfort that she is describing. She has no other types of chest discomfort. She did undergo cardiac evaluation for her pain with no significant abnormalities found. Reviewed test results with her. Informed her this is most likely chest wall discomfort and she can try ibuprofen or further discuss with her zinc plate grainer. Signs and symptoms of true angina reviewed. Continue with risk factor modification including good blood pressure and cholesterol control. (2) Essential hypertension: Code(s): I10 - Essential (primary) hypertension Category: Medical Plan: Blood pressure well controlled at this time. No medication changes made. Continue amlodipine, hydrochlorothiazide, losartan, metoprolol. Plan Time spent on chart review, documentation, interview and assessment Coding Level of Care Code Est Pt Level 3 (91130) Complex EM visit Add On G2211 Diagnoses Chest pressure R07.89 Essential hypertension I10 Time Spent (min) 24
[2024-06-30 13:55] VITALS: BP 132/62; PULSE 80; BMI 33.4
== END 2024-06-30 14:27 | disposition home or self-care (01) ==
PROVIDERS: PCP Student in an Organized Health Care Education/Training Program; Visit Provider Nurse Practitioner Family
DX: R07.89 Other chest pain (principal); I10 Essential (primary) hypertension
CPT/HCPCS: 99213; G2211

== ENCOUNTER → 2024-06-30 13:29 | Outpatient (BNVA) | payer OTHER, SELFPAY | PROVIDERS: PCP Student in an Organized Health Care Education/Training Program; Visit Provider Nurse Practitioner Family | DX: R07.89 Other chest pain (principal); I10 Essential (primary) hypertension | CPT/HCPCS: 99212 ==

== ENCOUNTER 2024-07-28 12:44 | Outpatient (REF) | payer OTHER, SELFPAY ==
[2024-07-28 14:35] LABS: Appearance Urine Clear; Color Urine Yellow; Glucose Urine UA Negative (Negative); Leukocyte Esterase Urine Negative (Negative); Nitrite Urine Negative (Negative); PH 5.5 (5.0-9.0); Urine Blood Negative (Negative); Urine Ketones Negative (Negative); Urine Protein Negative (Neg-Trace)
[2024-07-28 14:41] LABS: Bacteria Urine None Seen (None Seen); Hyaline Casts Urine 0-2 /LPF (0-2); RBC Urine 0-2 /HPF (0-2); Squamous Epithelial Cell Urine 0-2 /HPF (0-2); WBC Urine 0-5 /HPF (0-5)
== END 2024-07-28 12:45 | disposition home or self-care (01) ==
LOC: HO.CHCLNP 12:44
PROVIDERS: Visit Provider Family Medicine
DX: N39.46 Mixed incontinence (principal)
CPT/HCPCS: 81001

== ENCOUNTER 2024-09-29 13:15 | Outpatient (AMB) | payer OTHER, SELFPAY ==
--- NOTE | 2024-09-29 13:32 | A.OFFVIS_ITS ---
Intake Visit Reasons: mixed urinary incontinence Intake Note: New Patient presents for initial visit for incontinence Urology Medications: none Blood Thinner: none PVR: 0ml's Jet Wiper Required: Yes Jet Wiper Name: Willy [id number] Accompanied by: Self / Same As Patient Allergies Penicillins [PENICILLINS] Allergy (Intermediate, Verified 09/29/24 13:50) ITCHING sulfamethoxazole [From BACTRIM] Allergy (Intermediate, Verified 09/29/24 13:50) RASH trimethoprim [From BACTRIM] Allergy (Intermediate, Verified 09/29/24 13:50) RASH morphine [Morphine] Allergy (Mild, Verified 09/29/24 13:50) THROAT SWELLING Sulfa (Sulfonamide Antibiotics) Allergy (Mild, Verified 09/29/24 13:50) RASH/HEADACHE acetaminophen [Percocet] Allergy (Unknown, Verified 09/29/24 13:50) redness, swelling, itchy oxycodone [Percocet] Allergy (Unknown, Verified 09/29/24 13:50) redness, swelling, itchy Biaxin Allergy (Unknown, Uncoded 09/29/24 13:50) itchy Medication List - Last Reconciled 09/29/24 by ASHLYN Thompson-CHASE albuterol sulfate 90 mcg/actuation 0 mcg inhalation amlodipine 10 mg PO DAILY ascorbic acid (vitamin C) (Vitamin C) 500 mg PO BID wtznvqtac-qexeupom-aqqtgkq ala 50-200-25 mg (Biktarvy) 1 tab PO DAILY cholecalciferol (vitamin D3) 50 mcg PO DAILY fluticasone propion-salmeterol 230-21 mcg/actuation 2 puffs inhalation BID fluticasone propion-salmeterol 250-50 mcg/dose 1 ea inhalation BID fluticasone propionate 50 mcg/actuation sprays intranasal hydrochlorothiazide 25 mg PO DAILY ipratropium-albuterol 0.5 mg-3 mg(2.5 mg base)/3 mL 3 mL inhalation Q4-6H PRN 30 days losartan 50 mg PO DAILY metoprolol succinate ER 50 mg PO DAILY montelukast 10 mg PO DAILY omeprazole 40 mg PO BID rosuvastatin 40 mg PO DAILY sertraline 50 mg PO DAILY tesamorelin (Egrifta SV) mg subcut tramadol 50 mg PO TID PRN zolpidem 10 mg PO BEDTIME PRN HPI Comments Details: Melissa is a very pleasant 63-year-old Norwegian-speaking female patient of Dr. Young. She has a past medical history of hypertension. She presents to the office today as a new patient for ongoing lower urinary tract symptoms she has been experiencing. In discussion with the patient today she reports previously following up with Dr. Evon Burnett at [facility] over 3 years ago at which time she had what sounds like a bladder suspension. She reports she had been doing well up until 2-3 months ago when she started experiencing issues with mixed urinary incontinence. She reports feeling at times bladder pressure as well as the need to lean forward when urinating to empty her bladder. In office urinalysis results reviewed with the patient today. PVR 0 mL. We discussed signing medical release form to obtain previous records for continuity of care. She reports having trialed trialed medications in the past however does not recall their names however does remember trialing tolterodine with no improvement. We discussed at length potential causes of lower urinary tract symptoms patient was experiencing as well as further treatment options and risks and benefits of these treatment options. She denies foul smelling urine, changes to urinary stream, flank pain, fever, and or chills. We discussed obtaining retroperitoneal ultrasound for further assessment evaluation. REPLACED BY [facility] Medical History Abnormal anal Papanicolaou smear Dyspnea on exertion Essential hypertension Surgical History Hx of colonoscopy Hx of tubal ligation History of carpal tunnel surgery History of back surgery Hx of eye surgery Hx of cholecystectomy Family History Father Stomach cancer Mother Alzheimer disease Type 2 diabetes mellitus Hyperlipidemia Family/Other HTN (hypertension) Sleep apnea Diabetes Maternal Uncle FH: prostate cancer Stomach cancer Alzheimer disease Paternal Uncle Stomach cancer Social History Alcohol intake: current Alcohol intake frequency: does not drink Review of Systems Const All systems reviewed & are unremarkable except as noted in HPI and below Physical Exam Const General: cooperative, healthy appearing, comfortable, no acute distress, well developed, alert and awake Orientation/consciousness: patient oriented x3 Limitations: language barrier HEENT Head: Yes normal to inspection, Yes normocephalic and Yes atraumatic Ears: hearing grossly normal bilaterally Eyes General: appearance normal, both eyes and all related structures Neck Neck: Yes normal visual inspection and Yes trachea midline Chest Chest palpation & inspection: normal inspection of the chest Resp Effort & Inspection: normal respiratory effort and able to speak in complete sentences Cardio Rate: regular rate GI Inspection: Yes normal to inspection General: Yes no CVA tenderness Back/Spine/Pelvis Back: no CVA tenderness Skin General skin exam: no rashes or lesions noted Neuro General: patient oriented x3 Extrem General: Yes normal to inspection Psych Appearance: grossly normal and well kempt Mental Status: mental status grossly normal Speech and movement: Normal speech and movement present and Clear speech present Affect: normal affect Attitude: cooperative Thought process: Normal thought process present Thought content: Normal thought content present Insight: Fair insight present (Psych) Judgement: Fair judgement present (Psych) Office Procedures Post Void Residual Post Residual Void Post Void Residual (PVR): 0 78708-Ltmt Void Residual by ultrasound Results AMB Urinalysis, Automated UA Leukoctes 0 Sunny/uL Last Edit by XavierLocPlanetkasey Choi on 09/29/24 13:51 UA Nitrite Last Edit by Intrallectkaleb Choi on 09/29/24 13:51 UA Urobilinogen 0.2 mg/dL Last Edit by BookBottleskasey Choi on 09/29/24 13:51 UA Protein 15 mg/dL Last Edit by [employer] Steph on 09/29/24 13:51 UA pH 6.0 Last Edit by BookBottleskasey Choi on 09/29/24 13:51 UA Blood 0 Jacksno/uL Last Edit by BookBottleskasey Choi on 09/29/24 13:51 UA Specific Dierks 1.025 Last Edit by BookBottleskasey Choi on 09/29/24 13:51 UA Ketone Last Edit by BookBottleskasey Choi on 09/29/24 13:51 UA Bilirubin 0 mg/dL Last Edit by Umm Choi on 09/29/24 13:51 UA Glucose 0 mg/dL Last Edit by Umm Choi on 09/29/24 13:51 Results Reviewed Results Reviewed: Laboratory Last Values Urine pH (Auto) 6.0 09/29/24 13:50 Specific Dierks (Auto) 1.025 09/29/24 13:50 Urine Protein (Auto) 15 mg/dL 09/29/24 13:50 Glucose (UA)(Auto) 0 mg/dL 09/29/24 13:50 Urine Blood (Auto) 0 Jackson/uL 09/29/24 13:50 Urine Bilirubin (Auto) 0 mg/dL 09/29/24 13:50 Urine Urobilinogen (Auto) 0.2 mg/dL 09/29/24 13:50 Leukocyte Esterase (Auto) 0 Sunny/uL 09/29/24 13:50 Assessment & Plan Assessment & Plan (1) Urinary incontinence, mixed: Code(s): N39.46 - Mixed incontinence Category: Medical (2) Sensation of pressure in bladder area: Code(s): R39.89 - Other symptoms and signs involving the genitourinary system Category: Medical Plan In office urinalysis results reviewed with the patient today; as noted above. PVR 0 mL. Discussed signing medical release form to obtain previous urogynecology records for continuity of care. We discussed obtaining retroperitoneal ultrasound for further assessment evaluation. We discussed potential causes of mixed urinary incontinence and lower urinary tract symptoms patient was experiencing We discussed further treatment options and risks and benefits of these treatment options. Will schedule for in office urodynamics for further assessment evaluation. Follow-up per doctor's orders; or sooner with any issues, concerns, and or que stions. Orders: Orders AMB Urinalysis Automated Today Z13.9 - Encounter for screening, unspecified AMB Post Void Residual by ultrasound Today N39.41 - Urge incontinence US retroperitoneal comp Today N39.46 - Mixed incontinence Patient Instructions: The patient had an opportunity to ask questions regarding the treatment plan. All questions were answered. Physical exam, labs, and imaging were discussed and reviewed in detail. As well as risks, benefits, and discussion of treatment choices. No major barriers to understanding were identified. The patient expressed understanding and agreement with the above treatment plan. The patient was made aware they should contact our office by phone for worsening of their current condition, the appearance of new symptoms, or with any questions or concerns. Compliance is encouraged with any medications and follow up testing that is ordered. It is a privilege to be allowed the opportunity to participate in? your urological care.? Again, if you have any questions or concerns If you have any questions or concerns please do not hesitate to contact me. The office is [phone]. This note is constructed using voice recognition software. While every effort has been made to ensure accuracy benzol still operator errors may have been included. Yours sincerely, REKHA Thompson Coding Level of Care Code New Pt Level 3 (31594) Diagnoses Urinary incontinence, mixed N39.46 Sensation of pressure in bladder area R39.89 CPT Codes Post Residual Void - PVR CPT Code: 07879-Riuy Void Residual by ultrasound ([id number])
== END 2024-09-29 14:24 | disposition home or self-care (01) ==
PROVIDERS: PCP Family Medicine; Visit Provider Nurse Practitioner Family
DX: N39.46 Mixed incontinence (principal); R39.89 Other symptoms and signs involving the genitourinary system; Z13.9 Encounter for screening, unspecified
CPT/HCPCS: 99203

== ENCOUNTER → 2024-09-29 13:15 | Outpatient (BNVA) | payer OTHER, SELFPAY | PROVIDERS: PCP Family Medicine; Visit Provider Nurse Practitioner Family | DX: N39.46 Mixed incontinence (principal); R39.89 Other symptoms and signs involving the genitourinary system | CPT/HCPCS: 51798; 81003; 99202 ==

== ENCOUNTER 2024-10-23 08:59 | Outpatient (AMB) | payer OTHER, SELFPAY ==
--- NOTE | 2024-10-23 09:03 | A.OFFVIS_ITS ---
Vital Signs 10/23/24 09:10 Height 5 ft 2 in Weight 187 lb 13.341 oz BMI 34.4 BP 139/80 Blood Pressure Location Lt brachial Position Sitting Pulse 79 Intake Visit Reasons: colonoscopy screening Intake Note: New patient in office today for colonoscopy screening. CC: Patient c/o constipation someday and other days diarrhea. She also c/o abdominal pain and pressure. Data Integrity Analyst Required: Yes Data Integrity Analyst Language: Washer Assembler Name: daughter Accompanied by: Daughter Allergies Penicillins [PENICILLINS] Allergy (Intermediate, Verified 10/23/24 09:17) ITCHING sulfamethoxazole [From BACTRIM] Allergy (Intermediate, Verified 10/23/24 09:17) RASH trimethoprim [From BACTRIM] Allergy (Intermediate, Verified 10/23/24 09:17) RASH morphine [Morphine] Allergy (Mild, Verified 10/23/24 09:17) THROAT SWELLING Sulfa (Sulfonamide Antibiotics) Allergy (Mild, Verified 10/23/24 09:17) RASH/HEADACHE oxycodone [Percocet] Allergy (Unknown, Verified 10/23/24 09:17) redness, swelling, itchy Biaxin Allergy (Unknown, Uncoded 09/29/24 13:50) itchy HPI HPI colonoscopy screening: Details: Assessment & Plan (1) GERD (gastroesophageal reflux disease): ?Code(s): K21.9 - Gastro-esophageal reflux disease without esophagitis ?Plan: GUATEMALAN #[id number], Crystal. A lot of trouble with watery and very soft stools multiple frequent daily bowel movements and left sided cramping. BUT ran out of fiber and not taking the creon with each meal. Gerd also a problem but ran out of famotidine, sending. Was on colace bid, holding for now r/t watery stools.? The patient was educated to always call the office if she runs out of medications as usually this is a pharmacy miscommunication and not an intentional discontinuance.? I let her know that the pharmacies are not very good at letting me know and there was a problem so she really needs to call us herself.? Hopefully once we reestablished her medical regimen the symptoms will be controlled again. ROV 4 weeks. (2) History of IBS: ?Code(s): Z87.19 - Personal history of other diseases of the digestive system (3) Family history of polyps in the colon: ?Comment: 2 BROTHERS, last scope 2017 repeat 5 years 2021 ?Code(s): Z83.71 - Family history of colonic polyps ? ? ? Medications:?Changed From famotidineE 40 mg? PO BEDTIME K21.9 - Gastro-esophag eal reflux disease without esophagitis ? To famotidine 40 mg? PO BEDTIME 30 days 30 tabs 6RF K2 1.9 - Gastro-esophageal reflux disease without esophagitis ? Refilled psyllium husk (aspartame) 3.4 gram/5.8 gram (Metamucil Sugar-Free (aspartame)) 1 ea? PO BID 1,040 grams 6RF Z87.19 - Personal history of other diseases of the digestive system ? On Hold docusate sodium (Colace) ?? Hold Comment:? Doctor's Order 100 mg? PO .DAILY WITH FOOD 30 days PRN 30 caps 0RF constipation Z87.19 - Personal history of other diseases of the digestive system ? PMX HIV Asthma Hypertension Urinary incontinence History of esophageal Khalida History of colon polyps in her brother History of diverticulitis GERD* * SURGICAL HISTORY Colonoscopy - 2017 neg study severe tics Tubal ligation Carpal tunnel release Back surgery Eye surgery x 3 Cholecystectomy * ALLERGIES Penicillin Sulfa Morphine Oxycodone Biaxin * Blink (air taxi) LABS: none since TODAY'S VISIT GUATEMALAN #Sister translates per pt request Patient has not been seen by myself since 2020 apparently is here today for a screening colonoscopy Her last was in 2017 and was negative except for severe tics. She has had some intermittent RUQ pain over the past 2 mos that is transient described as a pressure, denies any CIC or diarrhea and she is s/p tucker. She has GERD but is controlled on her omeprazole. Her asthma is well controlled and not cardiac problems. She has had delayed recovery from general anesthesia but not with GI procedures. She has HIV that is well controlled no other ID problems. Her 2 brothers had colon polyps. [facility] Medical History Abnormal anal Papanicolaou smear Dyspnea on exertion Essential hypertension Surgical History Hx of colonoscopy Hx of tubal ligation History of carpal tunnel surgery History of back surgery Hx of eye surgery Hx of cholecystectomy Family History Father Stomach cancer Mother Alzheimer disease Type 2 diabetes mellitus Hyperlipidemia Family/Other HTN (hypertension) Sleep apnea Diabetes Maternal Uncle FH: prostate cancer Stomach cancer Alzheimer disease Paternal Uncle Stomach cancer Social History Alcohol intake: current Alcohol intake frequency: does not drink Review of Systems Const Denies fatigue, Denies fever(s), Denies night sweats, Denies poor appetite and Denies weight loss Eyes Details: Glasses, 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 She has intermittent surgeries to correct this Reports requires corrective lenses ENT Reports Normal hearing present, Denies dental pain, Denies dysphagia, Denies hearing loss, Denies mouth pain, Denies odynophagia, Denies throat swelling, Denies tongue swelling and Reports other (Dentition adequate) Card Reports no additional complaints Resp Reports no additional complaints GI Details: Denies abdominal pain, Denies melena, Denies bloating, Reports hematochezia (Occasional), Denies constipation, Denies GI cramping, Denies dysphagia, Denies excessive flatus, Denies early satiety, Reports heartburn, Denies diarrhea, Denies nausea, Denies odynophagia, Denies vomiting and Denies hematemesis Reports urinary incontinence Skin/Breast Denies pruritus, Denies lesions, Denies rash and Denies jaundice Neuro Reports Normal hearing present and Denies Abnormal speech present Endo Denies fatigue Aller/Immun Denies throat swelling and Denies tongue swelling Physical Exam Vital Signs: Last Vital Signs Pulse 79 10/23/24 09:10 BP 139/80 10/23/24 09:10 BMI result Body Mass Index 34.4 Const General: cooperative, no acute distress, well developed and well groomed Nutritional Appearance: well nourished, obese and overweight Orientation/consciousness: oriented to person, oriented to place and oriented to time Limitations: No language barrier, ambulation with cane, ambulation with walker and wheelchair HEENT Head: Yes normocephalic and Yes atraumatic Eyes Other: 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 She has intermittent surgeries to correct this Pupils: Equal, round and reactive pupils present Neck Neck: Yes normal visual inspection and Yes no lymphadenopathy Thyroid: Thyroid normal Resp Effort & Inspection: normal respiratory effort and able to speak in complete sentences Auscultation: clear to auscultation bilaterally Cardio Rate: regular rate Rhythm: regular rhythm Heart sounds: Normal, physiologic split S2 sound present Peripheral pulses: radial pulses present and posterior tibial pulses present GI Inspection: No distended and No Abdominal panniculus present Palpation (GI): Soft to palpation, nontender, no guarding, not rigid, No hepatosplenomegaly present and Hepatosplenomegaly present Percussion: Yes normal to percussion Auscultation: normal bowel sounds Rectal Exam - Female: deferred Skin General skin exam: no rashes or lesions noted, turgor normal, skin not dry, no jaundice, No spider nevi and no striae Rashes: no rashes Nails: normal Neuro General: oriented to person, oriented to place and oriented to time Cranial nerves: Yes Equal, round and reactive pupils present and Yes Normal hearing present Speech: No Abnormal speech present Extrem General: Yes normal to inspection, No clubbing, No cyanosis and No edema Psych Thought process: Normal thought process present and not confabulating Thought content: Normal thought content present Insight: Good insight present (Psych) Judgement: Good judgement present (Psych) Assessment & Plan Assessment & Plan (1) Pre-op examination: Code(s): Z01.818 - Encounter for other preprocedural examination Category: Medical Plan GUATEMALAN #Sister translates per pt request Patient has not been seen by myself since 2020 apparently is here today for a screening colonoscopy Her last was in 2017 and was negative except for severe tics. There was some initial confusion because they thought she was referred h ere by Dr. Montelongo for an abnormal rectal Pap. Apparently this was a year ago and Dr. Montelongo could not find any HPV although there were a few abnormal cells on his biopsy. However, she does have a family history of polyps in her 2 brothers and that is likely why her primary care center here. She is quite overdue for screening. She has had some intermittent RUQ pain over the past 2 mos that is transient described as a pressure, denies any CIC or diarrhea and she is s/p tucker. She has GERD but is controlled on her omeprazole. Her asthma is well controlled and not cardiac problems. She has had delayed recovery from general anesthesia but not with GI procedures. She has HIV that is well controlled no other ID problems. Her 2 brothers had colon polyps. Orders: Orders Colonoscopy - GI Use Only Today Z01.818 - Encounter for other preprocedural examination Medications: New peg 3350-electrolytes 236-22.74-6.74 -5.86 gram (Golytely) until fecal effluent is clear; do not exceed a total volume of 2,000 mL 240 mL PO Q10M 1 day 4,000 mL 0RF Z12.11 - Encounter for screening for malignant neoplasm of colon bisacodyl (Dulcolax (bisacodyl)) 10 mg (2 x 5 mg) PO BEDTIME 2 days 4 tabs 0RF Coding Level of Care Code New Pt Level 3 (81585) Diagnoses Pre-op examination Z01.818
[2024-10-23 09:10] VITALS: BP 139/80; PULSE 79; BMI 34.4
== END 2024-10-23 09:48 | disposition home or self-care (01) ==
LOC: HO.HGI 08:59
PROVIDERS: PCP Student in an Organized Health Care Education/Training Program; Visit Provider Nurse Practitioner
DX: Z01.818 Encounter for other preprocedural examination (principal); Z12.11 Encounter for screening for malignant neoplasm of colon; Z83.719 Family history of colon polyps, unspecified
CPT/HCPCS: 99024

== ENCOUNTER → 2024-10-23 08:59 | Outpatient (BNVA) | payer OTHER, SELFPAY | PROVIDERS: PCP Student in an Organized Health Care Education/Training Program; Visit Provider Nurse Practitioner | DX: Z01.818 Encounter for other preprocedural examination (principal); R10.9 Unspecified abdominal pain; K21.9 Gastro-esophageal reflux disease without esophagitis; Z87.19 Personal history of other diseases of the digestive system; Z83.719 Family history of colon polyps, unspecified | CPT/HCPCS: 99212 ==

== ENCOUNTER 2024-10-27 17:24 | Outpatient (REF) | payer OTHER, SELFPAY | END 2024-10-27 17:25 | disposition home or self-care (01) | LOC: HO.HHCLNP 17:24 | PROVIDERS: Visit Provider Advanced Practice Midwife | DX: Z12.4 Encounter for screening for malignant neoplasm of cervix (principal) | CPT/HCPCS: 88112; 88175 ==

== ENCOUNTER 2024-11-07 09:32 | Outpatient (REF) | payer OTHER, SELFPAY ==
[2024-11-07 11:22] LABS: MANUAL DIFF FLAG NO
[2024-11-07 11:31] LABS: Basophils Percent Auto 0.8 % (0-2); Eosinophils Absolute Auto 0.2 X10*3/uL (0.0-0.4); Eosinophils Percent Auto 3.5 % (0-4); Hematocrit 38.1 % (37.0-47.0); Hemoglobin 12.9 g/dl (12.0-16.0); Imm Gran Abs Auto 0.01 X10*3/uL (0.00-0.03); Imm Gran Pct Auto 0.2 % (0.0-0.4); Lymphocytes Absolute Auto 1.3 X10*3/uL (1.2-4.9); Lymphocytes Percent Auto 27.5 % (20-40); Mean Corpuscular HGB Conc 33.9 g/dl (31.0-35.0); Mean Corpuscular Hemoglobin 31.1 pg (27.0-33.0); Mean Corpuscular Volume 91.8 fL (80.0-98.0); Mean Platelet Volume 10.8 fL (9.4-12.3); Monocytes Absolute Auto 0.3 X10*3/uL (0.1-1.2); Monocytes Percent Auto 6.8 % (2-11); Neutrophils Percent Auto 61.2 % (45-73); Platelet Count 209 X10*3/uL (160-400); Red Blood Count 4.15 X10*6/uL (4.20-5.50); Red Cell Distribution Width 12.6 % (11.0-16.0); White Blood Count 4.8 X10*3/uL (4.8-10.8)
[2024-11-07 12:02] LABS: Alanine Aminotransferase 11 U/L (0-31); Albumin Level 3.8 g/dL (3.5-5.0); Anion Gap 8 (12-20); Aspartate Amino Transferase 18 U/L (5-31); Bilirubin Total 0.4 mg/dL (0.0-1.0); Blood Urea Nitrogen 10 mg/dL (9-16); Calcium 9.5 mg/dL (8.4-10.2); Carbon Dioxide 26 mmol/L (22-29); Chloride 109 mmol/L (96-108); Estimated Glomerular Filt Rate > 60; Glucose Random 111 mg/dL (60-115); Potassium 3.8 mmol/L (3.3-5.1); Sodium 139 mmol/L (135-145)
[2024-11-07 19:47] LABS: Alkaline Phosphatase 67 U/L (39-117)
[2024-11-08 20:18] LABS: HIV RNA PCR Qn Copies 124 copies/mL (NOT DETECTED); HIV RNA PCR Qn Log Copies 2.09 (NOT DETECTED)
[2024-11-12 20:52] LABS: Absolute CD3 Count 851 cells/uL (840-3060); Absolute CD4 Count 310 cells/uL (490-1740); Absolute CD8 Count 571 cells/uL (180-1170); Absolute Lymphocytes 1155 cells/uL (850-3900); CD4 CD8 Ratio 0.54 (0.86-5.00); Percent CD3 Cells 74 % (57-85); Percent CD4 Cells 27 % (30-61); Percent CD8 Cells 49 % (12-42)
== END 2024-11-07 09:33 | disposition home or self-care (01) ==
LOC: HO.HHCL 09:32
PROVIDERS: Visit Provider Student in an Organized Health Care Education/Training Program
DX: Z21 Asymptomatic human immunodeficiency virus [HIV] infection status (principal)
CPT/HCPCS: 36415; 80053; 85025; 86359; 86360; 87536

== ENCOUNTER 2024-12-01 13:01 | Outpatient (REF) | payer OTHER, SELFPAY ==
--- NOTE | ~2024-12-01 | US_ITS ---
CLINICAL HISTORY: N39.46 - Mixed incontinence US kidneys and bladder Comparison: None Findings: Right kidney 10.7 cm length. No significant focal abnormality. Left kidney 11.3 cm length. No significant focal abnormality. No bilateral hydronephrosis. Normal bilateral renal echogenicity. The urinary bladder is unremarkable. Prevoid volume 221 mL. Post void volume 23 mL. Bilateral ureteral jets visualized. Impression: No significant abnormalities. This document has been electronically signed by: Aram Calzada MD on 12/01/2024 19:32:53
== END 2024-12-01 13:02 | disposition home or self-care (01) ==
LOC: HO.US 13:01
PROVIDERS: PCP Student in an Organized Health Care Education/Training Program; Visit Provider Nurse Practitioner Family
DX: N39.46 Mixed incontinence (principal)
CPT/HCPCS: 76770

== ENCOUNTER → 2024-12-01 13:04 | Outpatient (BNV) | payer OTHER, SELFPAY | PROVIDERS: PCP Student in an Organized Health Care Education/Training Program; Visit Provider Radiology Diagnostic Radiology | DX: N39.46 Mixed incontinence (principal) | CPT/HCPCS: 76770 ==

== ENCOUNTER 2024-12-09 13:14 | Outpatient (REF) | payer OTHER, SELFPAY | END 2024-12-09 13:15 | disposition home or self-care (01) | LOC: HO.LNP 13:14 | PROVIDERS: PCP Family Medicine; Visit Provider Urology | DX: N39.46 Mixed incontinence (principal) | CPT/HCPCS: 87086 ==

== ENCOUNTER 2024-12-19 10:18 | Outpatient (AMB) | payer OTHER, SELFPAY ==
--- NOTE | 2024-12-19 10:36 | AM.OFFVISNUR ---
Intake Visit Reasons: UroD Allergies Penicillins [PENICILLINS] Allergy (Intermediate, Verified 10/23/24 09:17) ITCHING sulfamethoxazole [From BACTRIM] Allergy (Intermediate, Verified 10/23/24 09:17) RASH trimethoprim [From BACTRIM] Allergy (Intermediate, Verified 10/23/24 09:17) RASH morphine [Morphine] Allergy (Mild, Verified 10/23/24 09:17) THROAT SWELLING Sulfa (Sulfonamide Antibiotics) Allergy (Mild, Verified 10/23/24 09:17) RASH/HEADACHE oxycodone [Percocet] Allergy (Unknown, Verified 10/23/24 09:17) redness, swelling, itchy Biaxin Allergy (Unknown, Uncoded 09/29/24 13:50) itchy Office Procedures Urodynamic Studies Consent Discussed risk and benefit or proposed procedure with the patient. Information consent for procedure given to the patient. Discussed technical aspects, risks, benefits and alternatives in full. Addressed all of the patient's questions and concerns regarding the procedure. The patient demonstrated knowledge and understanding. They wish to proceed with this procedure. Preparation The patient was prepped in the usual manner. A seasonal sales associate was present and in the room. Genitalia was prepped with betadine solution in a sterile manner. Procedure Complex Uroflow Complex uroflow performed by: Marisa Harman Maximum urinary flow rate (mL/second): 9.3 ml/sec Voiding time (seconds): 9 secs Voided volume (mL): 45ml Residual urine (mL): 10ml Cystometrogram ? Vaginal/rectal catheter type: Vaginal First sensation at (mL): 4.1mL First desire at (mL): 120 mL Strong desire to void occurred at (mL): 234 mL Strong desire detrusor pressure (cm H2O): 234 cmH20 Maximum Capacity (mL): 234 mL Voiding Summary Voided with max detrusor pressure of (cm H2O): 71 Maximum flow rate (mL/second): 11 mL/s Voided volume (mL): ? 201ml (small amount not measure went onto floor) Calculated PVR: 27 mL Stress Testing Stress Test at 203 mL: Absent leak with Valsalva, Present leak with cough DO Dry: 203ml, 234ml DO Wet: Absent Patient had urgency throughout test. Reports she stopped her Tolterodine for 1 month prior to test. Patients urine tested for infection on 5/20/25 with a negative culture. Prep: The patient was prepped in the usual manner. A seasonal sales associate was present and in the room. Genitalia was prepped with betadine solution in a sterile manner. 22735-Lndzrymhvryjao w/ OUTSIDE EVENT SALES SPECIALIST 63004-Axvagxy-Sogwisymlpjo 41614-Vgtf/Urinary Muscle Study 31768-Fkawn-Zokfrrlma Pressure Test Procedure code (CPT) selection complete Office Meds nitrofurantoin monohydrate/macrocrystals 100 mg capsule Performing Provider: Marisa Harman MD [facility] Administered by: Mattie Bauer RN on 12/19/24 11:27 Dose Route Admin Location Dispensed Lot Number Expiration Date NDC Assisted Living Executive Director 100 mg PO 1 cap Assessment & Plan Assessment & Plan Orders: Orders AMB Urodynamics Studies Today N39.46 - Mixed incontinence Medications: New mirabegron ER (Myrbetriq) 50 mg PO DAILY 30 tabs 2RF Coding CPT Codes Urodynamic Studies - CPT: 71465-Pszghzjucxjmwm w/ OUTSIDE EVENT SALES SPECIALIST ([id number]) Urodynamic Studies - CPT: 28548-Cijbypn-Rvbmddbzgabk ([id number]) Urodynamic Studies - CPT: 33955-Tjps/Urinary Muscle Study ([id number]) Urodynamic Studies - CPT: 51820-Jhttw-Ztplstego Pressure Test ([id number])
--- NOTE | 2024-12-19 12:19 | A.OFFVIS_ITS ---
Intake Visit Reasons: UroD Allergies Penicillins [PENICILLINS] Allergy (Intermediate, Verified 10/23/24 09:17) ITCHING sulfamethoxazole [From BACTRIM] Allergy (Intermediate, Verified 10/23/24 09:17) RASH trimethoprim [From BACTRIM] Allergy (Intermediate, Verified 10/23/24 09:17) RASH morphine [Morphine] Allergy (Mild, Verified 10/23/24 09:17) THROAT SWELLING Sulfa (Sulfonamide Antibiotics) Allergy (Mild, Verified 10/23/24 09:17) RASH/HEADACHE oxycodone [Percocet] Allergy (Unknown, Verified 10/23/24 09:17) redness, swelling, itchy Biaxin Allergy (Unknown, Uncoded 09/29/24 13:50) itchy PFSH Medical History Abnormal anal Papanicolaou smear Dyspnea on exertion Essential hypertension Surgical History Hx of colonoscopy Hx of tubal ligation History of carpal tunnel surgery History of back surgery Hx of eye surgery Hx of cholecystectomy Family History Father Stomach cancer Mother Alzheimer disease Type 2 diabetes mellitus Hyperlipidemia Family/Other HTN (hypertension) Sleep apnea Diabetes Maternal Uncle FH: prostate cancer Stomach cancer Alzheimer disease Paternal Uncle Stomach cancer Social History Alcohol intake: current Alcohol intake frequency: does not drink Office Procedures Urodynamic Studies Consent Discussed risk and benefit or proposed procedure with the patient. Information consent for procedure given to the patient. Discussed technical aspects, risks, benefits and alternatives in full. Addressed all of the patient's questions and concerns regarding the procedure. The patient demonstrated knowledge and understanding. They wish to proceed with this procedure. Preparation The patient was prepped in the usual manner. A blindstitch machine operator was present and in the room. Genitalia was prepped with betadine solution in a sterile manner. Procedure Complex Uroflow Complex uroflow performed by: Marisa Harman Maximum urinary flow rate (mL/second): 9.3 ml/sec Voiding time (seconds): 9 secs Voided volume (mL): 45ml Residual urine (mL): 10ml Cystometrogram ? Vaginal/rectal catheter type: Vaginal First sensation at (mL): 4.1mL First desire at (mL): 120 mL Strong desire to void occurred at (mL): 234 mL Strong desire detrusor pressure (cm H2O): 234 cmH20 Maximum Capacity (mL): 234 mL Voiding Summary Voided with max detrusor pressure of (cm H2O): 71 Maximum flow rate (mL/second): 11 mL/s Voided volume (mL): ? 201ml (small amount not measure went onto floor) Calculated PVR: 27 mL Stress Testing Stress Test at 203 mL: Absent leak with Valsalva, Present leak with cough DO Dry: 203ml, 234ml DO Wet: Absent Patient had urgency throughout test. Reports she stopped her Tolterodine for 1 month prior to test. Patients urine tested for infection on 12/09/24 with a negative culture. Prep: The patient was prepped in the usual manner. A blindstitch machine operator was present and in the room. Genitalia was prepped with betadine solution in a sterile manner. 65464-Krkhypcbhwhkni w/ ASSOCIATE BROKER 87281-Pxzibwa-Clswdxqkmhyc 47841-Wyht/Urinary Muscle Study 15927-Mhpkp-Fdjnionlw Pressure Test Procedure code (CPT) selection complete Office Meds nitrofurantoin monohydrate/macrocrystals 100 mg capsule Performing Provider: Marisa Harman MD Performing Location: [facility] [place] [facility] Administered by: Mattie Bauer RN on 12/19/24 11:27 Dose Route Admin Location Dispensed Lot Number Expiration Date [facility] [place] Special Ed Assistant 100 mg PO 1 cap Assessment & Plan Assessment & Plan Orders: Orders AMB Urodynamics Studies Today N39.46 - Mixed incontinence Medications: New mirabegron ER (Myrbetriq) 50 mg PO DAILY 30 tabs 2RF Coding CPT Codes Urodynamic Studies - CPT: 36726-Igbzajqddegqlb w/ ASSOCIATE BROKER ([id number]) Urodynamic Studies - CPT: 85546-Ecofnqn-Setrxfjokxwu ([id number]) Urodynamic Studies - CPT: 97255-Tlwo/Urinary Muscle Study ([id number]) Urodynamic Studies - CPT: 89178-Pejrq-Uzhkbdckp Pressure Test ([id number])
== END 2024-12-19 12:13 | disposition home or self-care (01) ==
LOC: HO.HUSH 10:18
PROVIDERS: PCP Family Medicine; Visit Provider Urology
DX: N39.46 Mixed incontinence (principal)
CPT/HCPCS: 51728; 51741; 51784; 51797

== ENCOUNTER → 2024-12-19 10:18 | Outpatient (BNVA) | payer OTHER, SELFPAY | PROVIDERS: PCP Family Medicine; Visit Provider Urology | DX: N32.81 Overactive bladder (principal); N39.3 Stress incontinence (female) (male) | CPT/HCPCS: 51728; 51741; 51784; 51797; 99212 ==

== ENCOUNTER 2024-12-24 09:14 | Outpatient (REF) | payer OTHER, SELFPAY ==
[2024-12-24 11:29] LABS: MANUAL DIFF FLAG NO
[2024-12-24 11:36] LABS: Basophils Absolute Auto 0.1 X10*3/uL (0.0-0.2); Basophils Percent Auto 0.9 % (0-2); Eosinophils Absolute Auto 0.2 X10*3/uL (0.0-0.4); Eosinophils Percent Auto 3.9 % (0-4); Hematocrit 40.4 % (37.0-47.0); Hemoglobin 13.7 g/dl (12.0-16.0); Imm Gran Abs Auto 0.02 X10*3/uL (0.00-0.03); Imm Gran Pct Auto 0.4 % (0.0-0.4); Lymphocytes Absolute Auto 1.6 X10*3/uL (1.2-4.9); Lymphocytes Percent Auto 29.1 % (20-40); Mean Corpuscular HGB Conc 33.9 g/dl (31.0-35.0); Mean Corpuscular Hemoglobin 31.3 pg (27.0-33.0); Mean Corpuscular Volume 92.2 fL (80.0-98.0); Mean Platelet Volume 11.5 fL (9.4-12.3); Monocytes Absolute Auto 0.4 X10*3/uL (0.1-1.2); Neutrophils Absolute Auto 3.3 x10*3/uL (2.0-8.3); Neutrophils Percent Auto 58.7 % (45-73); Platelet Count 229 X10*3/uL (160-400); Red Blood Count 4.38 X10*6/uL (4.20-5.50); Red Cell Distribution Width 12.5 % (11.0-16.0); White Blood Count 5.6 X10*3/uL (4.8-10.8)
[2024-12-24 14:19] LABS: Alanine Aminotransferase 16 U/L (0-31); Albumin Level 4.1 g/dL (3.5-5.0); Alkaline Phosphatase 81 U/L (39-117); Anion Gap 10 (12-20); Aspartate Amino Transferase 22 U/L (5-31); Bilirubin Total 0.5 mg/dL (0.0-1.0); Blood Urea Nitrogen 24 mg/dL (9-16); Calcium 9.2 mg/dL (8.4-10.2); Carbon Dioxide 27 mmol/L (22-29); Chloride 105 mmol/L (96-108); Cholesterol 186 mg/dL (<200); Estimated Glomerular Filt Rate 42; Glucose Random 136 mg/dL (60-115); HDL Cholesterol 47 mg/dL (>40); LDL Cholesterol Calculated 111 mg/dL (<100); Potassium 4.1 mmol/L (3.3-5.1); Sodium 138 mmol/L (135-145); Total Protein 7.4 g/dL (6.5-8.0); Triglycerides 143 mg/dL (<150)
[2024-12-25 15:18] LABS: HIV RNA PCR Qn Copies 101 copies/mL (NOT DETECTED)
== END 2024-12-24 09:15 | disposition home or self-care (01) ==
LOC: HO.HHCL 09:14
PROVIDERS: Family Medicine; Visit Provider Student in an Organized Health Care Education/Training Program
DX: E11.9 Type 2 diabetes mellitus without complications (principal); Z21 Asymptomatic human immunodeficiency virus [HIV] infection status
CPT/HCPCS: 36415; 80053; 80061; 85025; 87536

== ENCOUNTER 2025-01-04 17:18 | Inpatient (IN) | payer OTHER, SELFPAY ==
--- NOTE | 2025-01-04 | ECG_ITS ---
Test Reason : CHEST DISCOMFORT Blood Pressure : */* mmHG Vent. Rate : 61 BPM Atrial Rate : 61 BPM P-R Int : 138 ms QRS Dur : 76 ms QT Int : 426 ms P-R-T Axes : 27 6 21 degrees QTcB Int : 428 ms Normal sinus rhythm Normal ECG When compared with ECG of 28-Nov-2022 13:03, Nonspecific T wave abnormality, improved in Anterolateral leads Referred By: Mattie Garcia Electronically Signed By: Aaron Caputo
--- NOTE | ~2025-01-04 | XR_ITS ---
CLINICAL HISTORY: epigastric pain 1 view chest x-ray Comparison: None Findings: The lungs are clear. Heart size is normal. No acute fracture. IMPRESSION: 1. No acute findings. This document has been electronically signed by: Quintin Alva MD on 01/04/2025 20:24:16
--- NOTE | ~2025-01-04 | CT_ITS ---
CLINICAL HISTORY: SBO vs colitis vs gastritis CT abdomen and pelvis with contrast Comparison: None Findings: The lung bases are clear. The gallbladder is absent. No biliary ductal dilatation. No focal hepatic abnormality. Splenic granuloma. Fatty infiltration of the pancreas. Adrenal glands are normal. Enhancement of bilateral kidneys with no stones along the course of the ureters. Slight prominence of bilateral renal collecting systems and ureters. No perinephric stranding. The stomach is mildly distended with air-fluid level. Dilated proximal and mid small bowel loops. Distal small bowel loops are decompressed. Descending and sigmoid colon diverticulosis. Slight perinephric stranding and sigmoid colon may represent acute diverticulitis. No pneumatosis or pneumoperitoneum. No free fluid. No loculated fluid collection. Appendix not clearly visualized. Pelvic contents unremarkable. No aneurysm of the abdominal aorta. No acute fracture. Postoperative changes at L4-5 and L5-S1. Degenerative changes of the spine. IMPRESSION: 1. Suspect partial or developing mid to small bowel obstruction. 2. Diverticulosis with mild stranding adjacent to sigmoid colon may represent mild acute diverticulitis. This document has been electronically signed by: Clair Gonzalez MD on 01/04/2025 22:10:27
[2025-01-04 17:20] VITALS: BP 144/61; PULSE 86; RESP 22; TEMP 36.6; O2SAT 93; BMI 32.2
--- NOTE | 2025-01-04 17:24 | ED.ABDPAIN ---
HPI - Abdominal Pain General Chief Complaint: Abdominal Pain Stated Complaint: upper abd pain/bloated Time Seen by Provider: 01/04/25 18:27 Source: patient, family, RN notes reviewed, old records reviewed and other (son and significant other) Limitations: language barrier History of Present Illness ED Provider: Denise Alicia PA-C HPI narrative: 640 pm: 64-year-old female presenting to the emergency department today with 3 days of epigastric and periumbilical pain. Past medical history significant for hypertension, IBS, HIV, and GERD. She is status post cholecystectomy in 2022 and bladder sling in 1985. For the last 3 days she has felt nauseous especially after eating food with worsening epigastric pain she feels bloated. She did have a bowel movement earlier today report that is thin and loose. This is abnormal for her. Anymore she does have a history of GERD she states it does not feel like heartburn in any way as it does not radiate upward. She does without any chest pressure, fevers coughing or sore throat. She has tried ibuprofen and tramadol and it has made no difference for her. She has been tolerating fluids and voiding regularly fluids do not make the pain any worse. She reports systemic rash anaphylaxis to morphine and codeine. Pain is no worse with ambulation versus exertion or positional changes. She has been eating the same food as her son who accompanies her today who translates some [place] for her as well as her significant other. She does answer questions in [place] and [place]. They have declined a formal motor vehicle parts interpreter.Pain is described as colicky. No episodes of vomiting. She denies EtOH use. She is prediabetic, POC yesterday was 122. Decreased appetite but no polyuia or polydipsia. MD elicited complaint: abdominal pain Quality: aching and sharp Relieving factors: nothing Related Data Home Medications ?Medication ?Instructions ?Recorded ?Confirmed fluticasone propionate 230 2 puff inhalation BID PRN Wheezing 01/17/21 01/05/25 mcg-salmeterol 21 mcg/actuation HFA inhaler zolpidem 10 mg tablet 10 mg PO BEDTIME PRN Insomnia 01/17/21 01/05/25 amlodipine 10 mg tablet 10 mg PO DAILY 05/27/21 01/05/25 cholecalciferol (vitamin D3) 50 50 mcg PO DAILY 05/27/21 01/05/25 mcg (2,000 unit) tablet tramadol 50 mg tablet 50 mg PO TID PRN Pain 05/27/21 01/05/25 metoprolol succinate 50 mg 50 mg PO DAILY 06/06/23 01/05/25 tablet,extended release 24 hr bictegravir 50 mg-emtricitabine 1 tab PO BEDTIME 10/16/23 01/05/25 200 mg-tenofovir alafenam 25 mg tablet (Biktarvy) rosuvastatin 40 mg tablet 40 mg PO DAILY 06/30/24 01/05/25 tesamorelin 2 mg subcutaneous 2 mg subcut DAILY 10/23/24 01/05/25 solution (Egrifta SV) albuterol sulfate 2.5 mg/3 mL 2.5 mg Q6H PRN wheezing 01/05/25 01/05/25 (0.083 %) solution for nebulization chlorthalidone 25 mg tablet 25 mg PO DAILY 01/05/25 01/05/25 loratadine-pseudoephedrine ER 10 1 tab PO DAILY 01/05/25 01/05/25 mg-240 mg tablet,extended [id number] (Loratadine-D) telmisartan 20 mg tablet 20 mg PO DAILY 01/05/25 01/05/25 trazodone 50 mg tablet 75 mg PO BEDTIME 01/05/25 01/05/25 Previous Rx's ?Medication ?Instructions ?Recorded ipratropium 0.5 mg-albuterol 3 mg 3 ml inhalation Q4-6H PRN wheezing 08/26/20 (2.5 mg base)/3 mL nebulization 30 days #270 mL soln mirabegron 50 mg tablet,extended 50 mg PO DAILY #30 tabs 12/19/24 release 24 hr (Myrbetriq) amoxicillin 875 mg-potassium 1 tab PO BID #8 tabs 01/07/25 clavulanate 125 mg tablet ketorolac 10 mg tablet 10 mg PO Q8H 3 days #9 tabs 01/07/25 omeprazole 40 mg capsule,delayed 40 mg PO DAILY@30 #30 caps 01/07/25 release Allergies Allergy/AdvReac Type Severity Reaction Status Date / Time Penicillins (PENICILLINS) Allergy Intermediate ITCHING Verified 01/04/25 17:23 sulfamethoxazole (From Allergy Intermediate RASH Verified 01/04/25 17:23 BACTRIM) trimethoprim (From BACTRIM) Allergy Intermediate RASH Verified 01/04/25 17:23 morphine (Morphine) Allergy Mild THROAT Verified 01/04/25 17:23 SWELLING Sulfa (Sulfonamide Allergy Mild RASH/HEADAC Verified 01/04/25 17:23 Antibiotics) HE oxycodone (Percocet) Allergy Unknown redness, Verified 01/04/25 17:23 swelling, itchy Biaxin Allergy Unknown itchy Uncoded 01/04/25 17:23 [facility] Past Medical History Medical History Abnormal anal Papanicolaou smear Dyspnea on exertion Essential hypertension Surgical History Hx of colonoscopy Hx of tubal ligation History of carpal tunnel surgery History of back surgery Hx of eye surgery Hx of cholecystectomy Family History Family History Father Stomach cancer Mother Alzheimer disease Type 2 diabetes mellitus Hyperlipidemia Family/Other HTN (hypertension) Sleep apnea Diabetes Maternal Uncle FH: prostate cancer Stomach cancer Alzheimer disease Paternal Uncle Stomach cancer Social History Social History Household Members: None Housing: Apartment Do you presently have visiting nurse or other home services: Yes (homemaker 5 hours a week) Alcohol intake: current Alcohol intake frequency: does not drink Patient Tobacco Use Status: Never used Tobacco service: No Physical Exam ED Vital Signs: Vital Signs - 24 hr 01/04/25 17:20 01/04/25 18:27 01/04/25 21:16 Temperature 97.8 F 98.2 F 98.1 F Pulse Rate 86 78 62 Respiratory Rate 22 H 16 16 Blood Pressure 144/61 H 126/74 128/54 L Pulse Oximetry 93 97 98 Oxygen Delivery Method Room Air Room Air Room Air 01/04/25 23:03 Temperature 97.9 F Pulse Rate 59 Respiratory Rate 18 Blood Pressure 121/63 Pulse Oximetry 96 Oxygen Delivery Method Room Air BMI result Body Mass Index 32.2 Const General: cooperative, healthy appearing, comfortable, no acute distress, well developed, alert, awake and Physically active Nutritional Appearance: obese Orientation/consciousness: patient oriented x3 Limitations: language barrier HENMT Head: Yes normal to inspection and Yes No palpable skull fracture present Ears: hearing grossly normal bilaterally General nose exam: Normal external nose present Face and sinus: Yes normal facial exam Mouth: lip normal, tongue normal, oropharynx normal and moist mucous membranes abnormal (dry) Throat: Yes posterior oropharynx normal Eyes General: appearance normal, both eyes and all related structures Visual Laura: normal visual laura by confrontation Alignment and Position: alignment normal Periorbital: periorbital findings normal Eyelids: Yes eyelids normal Conjunctivae: conjunctivae normal Sclerae: sclerae normal Corneas: corneas normal Pupils: Equal, round and reactive pupils present Neck Neck: Yes normal visual inspection, Yes full ROM and Yes no lymphadenopathy Chest Chest palpation & inspection: normal inspection of the chest Resp Effort & Inspection: normal respiratory effort and able to speak in complete sentences Auscultation: clear to auscultation bilaterally Cardio Jugular venous distension: no JVD Rate: regular rate Rhythm: regular rhythm GI Inspection: Yes distended and Yes Abdominal panniculus present Palpation (GI): Soft to palpation and Tenderness to palpation present (GI) in the epigastrum and periumbilically Percussion: Yes normal to percussion Auscultation: abnormal bowel sounds (hypoactive) Rectal Exam - Female: deferred General: Yes bladder normal to inspection and Yes no CVA tenderness Back/Spine/Pelvis Back: no CVA tenderness Skin General skin exam: no rashes or lesions noted Neuro General: patient oriented x3 Cranial nerves: Yes Equal, round and reactive pupils present Extrem General: Yes capillary refill normal Course Course Course Narrative: Nhan Kaur APRN This is a rapid medical exam. deferred additional HPI, ROS, PE to primary provider. 64 yo female with PMH of hypertension, IBS, GERD, HIV here with epigastric pain x 3 days with nausea. S/p tucker Will obtain labs, UA VSS Reevaluation(s) Reevaluation #1: I Mattie Garcia PA-C have accepted care of the patient at signed out pending imaging and final disposition CT abdomen and pelvis:Findings: The lung bases are clear. The gallbladder is absent. No biliary ductal dilatation. No focal hepatic abnormality. Splenic granuloma. Fatty infiltration of the pancreas. Adrenal glands are normal. Enhancement of bilateral kidneys with no stones along the course of the ureters. Slight prominence of bilateral renal collecting systems and ureters. No perinephric stranding. The stomach is mildly distended with air-fluid level. Dilated proximal and mid small bowel loops. Distal small bowel loops are decompressed. Descending and sigmoid colon diverticulosis. Slight perinephric stranding and sigmoid colon may represent acute diverticulitis. No pneumatosis or pneumoperitoneum. No free fluid. No loculated fluid collection. Appendix not clearly visualized. Pelvic contents unremarkable. No aneurysm of the abdominal aorta. No acute fracture. Postoperative changes at L4-5 and L5-S1. Degenerative changes of the spine. IMPRESSION: 1. Suspect partial or developing mid to small bowel obstruction. 2. Diverticulosis with mild stranding adjacent to sigmoid colon may represent mild acute diverticulitis. We will be paging surgery for consult, after I reassess the patient., and in blood cultures and lactic to start antibiotics for early diverticulitis, the patient has had Dilaudid in the past and tolerated it, Time: 22:16 Consultations Consultation #1: per Dr. Baron .....NPOI, IVF, abx, she will be admitting...no NG tube Time: 22:16 Medical Decision Making Medical Decision Making MDM Narrative: 64-year-old female with past medical history significant for GERD and HIV presenting to urgent care today for evaluation of epigastric pain associated with nausea and bowel distention for the last 3 days. Upon arrival to ED she is afebrile and nontoxic and not ill or septic- appearing. Abdominal lab workup was initiated along with a CT of the abdomen and pelvis. Differentials at this time include gastritis, PUD, colitis, SBO very less likely SBP. She has no peritoneal signs and is denying any symptoms by urinalysis taken just in case. She has severe allergy to codeine/morphine products. She appears mildly dry on exam IV fluids along with Tylenol Zofran were ordered as well. She will continue to be monitored we will update plan as results and imaging come through. Presentation not consistent with cardiac etiology and no history of gallbladder concerning for hepatobiliary etiology. Given epigastric region, not likely hiatal hernia but given GERD, ordered CXR to rule out as potential cause- this was not noted and reassuring. NO pleuritic pain, this is not consistent with cardiac etiology therefore EKG and cardiac labs deferred. Labs without evidence of leukocytosis, anemia, ELDON, or metabolic dysfunction. UA with trace leuks but likely contaminant, no sxs, will defer UTI tx at this time. No CVA tenderness concerning for pyelo or kidney stone. Preliminary read of patient's CT of her abdomen and pelvis looks suspicious potentially for an SBO however final read is still pending which also determined patient's disposition. If it shows anything that would require further level of care she will be admitted if it is benign and only showing either mild diverticulitis without perforation versus no other acute findings plan will be to dispo were home with sucralfate would plan for GI follow-up. 942pm: Patient was signed out to the evening physician licensed sales assistant pending CT results Tonya Garcia PA-C Differential Diagnosis Differential Diagnoses: The differential diagnosis associated with the presentation includes gastritis/ PUD SBO/ SBP colitis hiatal hernia, GERD exacerbation- poor control viral gastroenteritis Admission/Observation Consideration of admission/observation: Escalation of care including admission/observation considered pending decision Lab Data MDM Lab Attestation statement: I reviewed the patient's lab results. 01/04/25 17:37 01/04/25 17:37 Labs: Lab Results 01/04/25 01/04/25 01/04/25 Range/Units 17:37 17:43 22:51 WBC 6.8 (4.8-10.8) X10*3/uL RBC 4.26 (4.20-5.50) X10*6/uL Hgb 13.2 (12.0-16.0) g/dl Hct 38.7 (37.0-47.0) % MCV 90.8 (80.0-98.0) fL MCH 31.0 (27.0-33.0) pg MCHC 34.1 (31.0-35.0) g/dl RDW 12.4 (11.0-16.0) % Plt Count 201 (160-400) X10*3/uL MPV 10.8 (9.4-12.3) fL Immature Gran % (Auto) 1.2 H (0.0-0.4) % Neut % (Auto) 71.7 (45-73) % Lymph % (Auto) 18.3 L (20-40) % [place] % (Auto) 6.6 (2-11) % Eos % (Auto) 1.9 (0-4) % Baso % (Auto) 0.3 (0-2) % Lymph # (Auto) 1.2 (1.2-4.9) X10*3/uL [place] # (Auto) 0.5 (0.1-1.2) X10*3/uL Eos # (Auto) 0.1 (0.0-0.4) X10*3/uL Baso # (Auto) 0.0 (0.0-0.2) X10*3/uL Abs Immat Gran (auto) 0.08 H (0.00-0.03) X10*3/uL Absolute Neuts (auto) 4.9 (2.0-8.3) x10*3/uL Absolute Nucleated RBC 0.000 (0.0-0.012) X10*3/uL Nucleated RBC % (auto) 0.0 (0.0-0.2) /100WBC Sodium 140 (135-145) mmol/L Potassium 3.8 (3.3-5.1) mmol/L Chloride 107 (96-108) mmol/L Carbon Dioxide 22 (22-29) mmol/L Anion Gap 15 (12-20) BUN 15 (9-16) mg/dL Creatinine 0.90 (0.5-1.4) mg/dL Estim Creat Clear Calc 68.4 Estimated GFR > 60 Random Glucose 106 (60-115) mg/dL Lactic Acid 0.6 (0.5-2.0) mmol/L Calcium 9.4 (8.4-10.2) mg/dL Total Bilirubin 0.6 (0.0-1.0) mg/dL Direct Bilirubin 0.2 (0.0-0.5) mg/dL AST 19 (5-31) U/L ALT 10 (0-31) U/L Alkaline Phosphatase 79 (39-117) U/L Total Protein 7.3 (6.5-8.0) g/dL Albumin 4.0 (3.5-5.0) g/dL Lipase 26 (8-78) U/L Urine Color Yellow Urine Appearance Clear Urine pH 6.0 (5.0-9.0) Ur Specific [place] 1.025 (1.005-1.025) Urine Protein Trace (Neg-Trace) mg/dL Urine Glucose (UA) Negative (Negative) mg/dL Urine Ketones Trace (Negative) mg/dL Urine Blood Negative (Negative) Urine Nitrite Negative (Negative) Ur Leukocyte Esterase Trace H (Negative) Urine RBC 0-2 (0-2) /HPF Urine WBC 0-5 (0-5) /HPF Ur Squamous Epith Cells 0-2 (0-2) /HPF Urine Bacteria None Seen (None Seen) Hyaline Casts 0-2 (0-2) /LPF Independent Interpretation I performed an independent interpretation of an: Plain X-Ray and CT Scan Interpretation: CXR without hernia, CT scan abd/ pelvis final read pending, appears like potential SBO. Independent Historian Clinical information obtained from an independent historian. History obtained from or confirmed by: Other (significant other) External Record Review External record reviewed: Outpatient record Prescription Management I considered prescription management with: Pain Medication Chronic Conditions Patient?s care impacted by: Hypertension Medications Administered Discontinued Medications Generic Name Dose Route Start Last Admin Trade Name Freq PRN Reason Stop Dose Admin Amlodipine Besylate 10 mg 01/06/25 09:00 01/07/25 09:42 Amlodipine Besylate 10 Mg Tablet PO 10 mg DAILY FERNY Administration Protocol Bictegravir/Emtricitabine/Tenofovir 1 tab 01/05/25 21:00 01/06/25 21:44 Bictegrav/Emtricit/Tenofov Ala Tablet PO 1 tab BEDTIME FERNY Administration Ceftriaxone Sodium 2 gm 01/04/25 22:24 01/04/25 22:52 Ceftriaxone Sodium 2 Gm Vial IVPUSH 01/04/25 22:25 2 gm ONCE ONE Administration Diatrizoate Meglum/Diatrizoate Sod 30 ml 01/04/25 20:53 01/04/25 20:53 Diatrizoate Meglumine, Sodium 30 Ml Solution PO 01/04/25 20:54 30 ml ONCE ONE Administration Hydromorphone HCl 0.5 mg 01/04/25 22:24 01/04/25 22:43 Hydromorphone Hcl 0.5 Mg/0.5 Ml Syringe IVPUSH 01/04/25 22:25 0.5 mg ONCE ONE Administration Protocol Hydromorphone HCl 1 mg 01/05/25 00:16 01/05/25 00:21 Hydromorphone Hcl 1 Mg/Ml Syringe IVPUSH 01/05/25 00:17 1 mg ONCE ONE Administration Protocol Hydromorphone HCl 0.5 mg 01/05/25 12:04 01/06/25 15:52 Hydromorphone Hcl 0.5 Mg/0.5 Ml Syringe IVPUSH 0.5 mg Q6H PRN Administration Pain, Severe (Pain Scale 7-10) Protocol Acetaminophen 1,000 mg in 100 mls @ 400 mls/hr 01/04/25 18:38 01/04/25 19:02 Ofirmev IV 01/04/25 18:52 Infused ONCE ONE Infusion Sodium Chloride 1,000 mls @ 999 mls/hr 01/04/25 18:38 01/04/25 20:44 Ns IV 01/04/25 19:38 Infused .Q1H1M ONE Infusion Metronidazole 500 mg in 100 mls @ 100 mls/hr 01/04/25 22:24 01/04/25 23:52 Flagyl IV 01/04/25 23:23 Infused ONCE ONE Infusion Lactated Ringer's 1,000 mls @ 80 mls/hr 01/04/25 23:00 01/05/25 01:44 Lr IVCONT Infused .[id number] FERNY Infusion Sodium Chloride 1,000 mls @ 100 mls/hr 01/05/25 00:45 01/07/25 04:08 Ns IVCONT Infused .Q10H FERNY Infusion Piperacillin Sod/Tazobactam 50 mls @ 100 mls/hr 01/05/25 06:00 01/07/25 13:22 Sod 3.375 gm/ Sodium Chloride IV Infused RQ6H FERNY Infusion Iohexol 100 ml 01/04/25 20:52 01/04/25 20:52 Iohexol 350 Mg/Ml 100 Ml Infus..Btl IV 01/04/25 20:53 85 ml ONCE ONE Administration Ketorolac Tromethamine 15 mg 01/04/25 21:55 01/04/25 22:05 Ketorolac Tromethamine 15 Mg/Ml Vial IVPUSH 01/04/25 21:56 15 mg ONCE ONE Administration Ketorolac Tromethamine 15 mg 01/05/25 00:52 01/05/25 03:57 Ketorolac Tromethamine 15 Mg/Ml Vial IVPUSH 15 mg RQ6H PRN Administration Pain, Severe (Pain Scale 7-10) Ketorolac Tromethamine 15 mg 01/05/25 09:30 01/07/25 13:19 Ketorolac Tromethamine 15 Mg/Ml Vial IVPUSH Not Given RQ6H FERNY Metoprolol Succinate 50 mg 01/06/25 09:00 01/07/25 09:44 Metoprolol Succinate Er 50 Mg Tab.Er.24h PO 50 mg DAILY FERNY Administration Protocol Mirabegron 50 mg 01/06/25 09:00 01/07/25 09:45 Mirabegron 50 Mg Tab.Er.24h PO 50 mg DAILY FERNY Administration Omeprazole 40 mg 01/06/25 06:30 01/07/25 06:21 Omeprazole 40 Mg Capsule.Dr PO 40 mg DAILY@0630 [facility] Administration Ondansetron HCl 4 mg 01/04/25 18:38 01/04/25 18:47 Ondansetron Hcl 4 Mg/2 Ml Vial IVPUSH 01/04/25 18:39 4 mg ONCE ONE Administration Ondansetron HCl 4 mg 01/05/25 00:45 01/05/25 17:31 Ondansetron Hcl 4 Mg/2 Ml Vial IVPUSH 4 mg Q8H PRN Administration Nausea and Vomiting Sodium Chloride 3 ml 01/05/25 08:00 01/07/25 09:45 0.9 % Sodium Chloride Flush 3 Ml Syringe IVFLUSH 3 ml QSHIFT [facility] Administration Trazodone HCl 75 mg 01/05/25 21:00 01/06/25 21:44 Trazodone Hcl 25 Mg Halftab PO 75 mg BEDTIME FERNY Administration Valsartan 40 mg 01/06/25 09:00 01/07/25 09:43 Valsartan 40 Mg Tablet PO 40 mg DAILY FERNY Administration Zolpidem Tartrate 10 mg 01/05/25 18:30 01/06/25 21:44 Zolpidem Tartrate 5 Mg Tablet PO 10 mg BEDTIME PRN Administration Insomnia Discharge Plan Discharge Clinical Impression: Diverticulitis Partial bowel obstruction Qualifiers: Intestinal obstruction type: unspecified Qualified Code(s): K56.600 - Partial intestinal obstruction, unspecified as to cause Patient Disposition: Admitted As Inpatient Interventions: Admission Worksheet (ED) Last Done: 01/05/25 16:08 Discharge Date/Time: 01/05/25 17:00
[2025-01-04 18:06] LABS: MANUAL DIFF FLAG NO
[2025-01-04 18:09] LABS: Appearance Urine Clear; Color Urine Yellow; Glucose Urine UA Negative (Negative); Leukocyte Esterase Urine Trace (Negative); Nitrite Urine Negative (Negative); Specific Gravity - Urine 1.025 (1.005-1.025); UMIC TRIGGER UACC YES; Urine Blood Negative (Negative); Urine Ketones Trace mg/dL (Negative); Urine Protein Trace mg/dL (Neg-Trace)
[2025-01-04 18:14] LABS: Bacteria Urine None Seen (None Seen); Hyaline Casts Urine 0-2 /LPF (0-2); RBC Urine 0-2 /HPF (0-2); Squamous Epithelial Cell Urine 0-2 /HPF (0-2); WBC Urine 0-5 /HPF (0-5)
[2025-01-04 18:21] LABS: Basophils Percent Auto 0.3 % (0-2); Eosinophils Absolute Auto 0.1 X10*3/uL (0.0-0.4); Eosinophils Percent Auto 1.9 % (0-4); Hematocrit 38.7 % (37.0-47.0); Hemoglobin 13.2 g/dl (12.0-16.0); Imm Gran Abs Auto 0.08 X10*3/uL (0.00-0.03); Imm Gran Pct Auto 1.2 % (0.0-0.4); Lymphocytes Absolute Auto 1.2 X10*3/uL (1.2-4.9); Lymphocytes Percent Auto 18.3 % (20-40); Mean Corpuscular HGB Conc 34.1 g/dl (31.0-35.0); Mean Corpuscular Volume 90.8 fL (80.0-98.0); Mean Platelet Volume 10.8 fL (9.4-12.3); Monocytes Absolute Auto 0.5 X10*3/uL (0.1-1.2); Monocytes Percent Auto 6.6 % (2-11); Neutrophils Absolute Auto 4.9 x10*3/uL (2.0-8.3); Neutrophils Percent Auto 71.7 % (45-73); Platelet Count 201 X10*3/uL (160-400); Red Blood Count 4.26 X10*6/uL (4.20-5.50); Red Cell Distribution Width 12.4 % (11.0-16.0); White Blood Count 6.8 X10*3/uL (4.8-10.8)
[2025-01-04 18:27] VITALS: BP 126/74; PULSE 78; RESP 16; TEMP 36.8; O2SAT 97
[2025-01-04 18:30] LABS: Alanine Aminotransferase 10 U/L (0-31); Alkaline Phosphatase 79 U/L (39-117); Anion Gap 15 (12-20); Aspartate Amino Transferase 19 U/L (5-31); Bilirubin Direct 0.2 mg/dL (0.0-0.5); Bilirubin Total 0.6 mg/dL (0.0-1.0); Blood Urea Nitrogen 15 mg/dL (9-16); Calcium 9.4 mg/dL (8.4-10.2); Carbon Dioxide 22 mmol/L (22-29); Chloride 107 mmol/L (96-108); Creatinine Clr Calc Pharmacy 68.4; Estimated Glomerular Filt Rate > 60; Glucose Random 106 mg/dL (60-115); Lipase 26 U/L (8-78); Potassium 3.8 mmol/L (3.3-5.1); Sodium 140 mmol/L (135-145); Total Protein 7.3 g/dL (6.5-8.0)
[2025-01-04] MEDS: Acetaminophen 1,000 MG/100 ML PIGGYBACK 400 MG IV (18:47)
[2025-01-04] MEDS: ondansetron HCL 4 MG/2 ML VIAL IVPUSH (18:47)
[2025-01-04] MEDS: 0.9 % Sodium Chloride 1,000 ML 999 ML IV (18:47)
[2025-01-04] MEDS: iohexoL 350 MG/ML 100 ML INFUS..BTL IV (20:52)
[2025-01-04] MEDS: Diatrizoate Meglumine, Sodium 30 ML SOLUTION PO (20:53)
[2025-01-04 21:16] VITALS: BP 128/54; PULSE 62; RESP 16; TEMP 36.7; O2SAT 98
[2025-01-04] MEDS: Ketorolac Tromethamine 15 MG/ML VIAL IVPUSH (22:05)
[2025-01-04] MEDS: HYDROmorphone HCl 0.5 MG/0.5 ML SYRINGE IVPUSH (22:43)
[2025-01-04] MEDS: metroNIDAZOLE/NS 500 MG/100 ML PIGGYBACK 100 MG IV (22:52)
[2025-01-04] MEDS: cefTRIAXone sodium 2 GM VIAL IVPUSH (22:52)
[2025-01-04 23:03] VITALS: BP 121/63; PULSE 59; RESP 18; TEMP 36.6; O2SAT 96
[2025-01-04 23:18] LABS: Lactic Acid 0.6 mmol/L (0.5-2.0)
[2025-01-05] VITALS (8 sets, daily range): BP systolic 102–140; BP diastolic 48–64; PULSE 50–64; RESP 14–18; TEMP 36.1–37.1; O2SAT 90–97
[2025-01-05] MEDS: HYDROmorphone HCl 1 MG/ML SYRINGE IVPUSH (00:21)
[2025-01-05] MEDS: Lactated Ringers 1,000 ML 80 ML IVCONT (00:22)
[2025-01-05] MEDS: 0.9 % Sodium Chloride 1,000 ML 100 ML IVCONT ×2 (01:49→11:31)
--- NOTE | 2025-01-05 01:51 | PC.NURSE ---
Pt ambulated to BR independently with steady gait.
[2025-01-05] MEDS: Ketorolac Tromethamine 15 MG/ML VIAL IVPUSH ×3 (03:57→19:18)
[2025-01-05] MEDS: Piperacillin Sodium/Tazobactam 3.375 GM in 0.9 % Sodium Chloride 50 ML IV ×3 (07:15→19:17)
--- NOTE | 2025-01-05 08:15 | P.HPGS_ITS ---
History of Present Illness History of Present Illness Date of Service: 01/05/25 <King Peralta PA-C - Last Filed: 01/05/25 10:07> 01/05/25 <Lev Burnham MD - Last Filed: 01/05/25 11:18> Chief complaint: abdo pain <King Peralta PA-C - Last Filed: 01/05/25 10:07> Narrative: 64-year-old female with past medical history significant for GERD, HTN and HIV presenting to emergency department today for evaluation of epigastric pain associated with nausea and bowel distention for the last 3 days. Patient states she has pain in the upper abdomen which progressed over the weekend. She states she has had an episode similar to this previously about 5-10 years ago where she was admitted for diverticulitis. She states she fell nauseous, decreased appetite and very bloated. She states she has not had a bowel movement about 2 days. She denies fever, chills. She denies passing flatus or bowel movement. Patient had CT in the ED showing partial SBO, and possible mild diverticulitis of the sigmoid colon. Patient has no elevated WBC on labs. Patient was started on IV Zosyn, she is now NPO. Patient endorses surgical history of previous cholecystectomy, tubal ligation, back surgery, with access through with the abdomen. <King Peralta PA-C - Last Filed: 01/05/25 10:07> Review of Systems Review of Systems: Yes all other systems are reviewed and are negative <King Peralta PA-C - Last Filed: 01/05/25 10:07> PENDING SALE TO [facility] Past Medical History Medical History: Medical History Abnormal anal Papanicolaou smear Dyspnea on exertion Essential hypertension <King Peralta PA-C - Last Filed: 01/05/25 10:07> Family History Family History: Family History Father Stomach cancer Mother Alzheimer disease Type 2 diabetes mellitus Hyperlipidemia Family/Other HTN (hypertension) Sleep apnea Diabetes Maternal Uncle FH: prostate cancer Stomach cancer Alzheimer disease Paternal Uncle Stomach cancer <King Peralta PA-C - Last Filed: 01/05/25 10:07> Surgical History Surgical History: Surgical History Hx of colonoscopy Hx of tubal ligation History of carpal tunnel surgery History of back surgery Hx of eye surgery Hx of cholecystectomy <King Peralta PA-C - Last Filed: 01/05/25 10:07> Social History Social History: Social History Alcohol intake: current Alcohol intake frequency: does not drink Smoked in Last 30 Days: No Use of substances other than those prescribed or required for medical reasons: No Advance Directives: No Advance Directives Information Provided: Yes service: No <King Peralta PA-C - Last Filed: 01/05/25 10:07> Meds Allergies/Adverse reactions: Allergies Allergy/AdvReac Type Severity Reaction Status Date / Time Penicillins [PENICILLINS] Allergy Intermediate ITCHING Verified 01/04/25 17:23 sulfamethoxazole Allergy Intermediate RASH Verified 01/04/25 17:23 [From BACTRIM] trimethoprim [From BACTRIM] Allergy Intermediate RASH Verified 01/04/25 17:23 morphine [Morphine] Allergy Mild THROAT Verified 01/04/25 17:23 SWELLING Sulfa (Sulfonamide Allergy Mild RASH/HEADAC Verified 01/04/25 17:23 Antibiotics) HE oxycodone [Percocet] Allergy Unknown redness, Verified 01/04/25 17:23 swelling, itchy Biaxin Allergy Unknown itchy Uncoded 01/04/25 17:23 <King Peralta PA-C - Last Filed: 01/05/25 10:07> Active Medications: Current Medications Acetaminophen (Acetaminophen 325 Mg Tablet) 650 mg PO Q6H PRN PRN Reason: Pain, Mild 1-3,fever,headache Sodium Chloride (Ns) 1,000 mls @ 100 mls/hr IVCONT .Q10H [facility] Last Admin: 01/05/25 01:49 Dose: 100 mls/hr Piperacillin Sod/Tazobactam (Sod 3.375 gm/ Sodium Chloride) 50 mls @ 100 mls/hr IV RQ6H [facility] Last Admin: 01/05/25 07:15 Dose: 100 mls/hr Ketorolac Tromethamine (Ketorolac Tromethamine 15 Mg/Ml Vial) 15 mg IVPUSH RQ6H PRN PRN Reason: Pain, Severe (Pain Scale 7-10) Last Admin: 01/05/25 03:57 Dose: 15 mg Melatonin (Melatonin 3 Mg Tablet) 6 mg PO BEDTIME PRN PRN Reason: Insomnia Ondansetron HCl (Ondansetron Hcl 4 Mg/2 Ml Vial) 4 mg IVPUSH Q8H PRN PRN Reason: Nausea and Vomiting Sodium Chloride (0.9 % Sodium Chloride Flush 3 Ml Syringe) 3 ml IVFLUSH QSHIFT [facility] <King Peralta PA-C - Last Filed: 01/05/25 10:07> Home medications: Home Medications ?Medication ?Instructions ?Recorded ?Confirmed ?Last Taken ?Type albuterol sulfate 90 mcg/actuation 0 mcg inhalation 01/17/21 06/30/24 Unknown History aerosol inhaler fluticasone propionate 230 2 puff inhalation BID 01/17/21 06/30/24 Unknown Hist ory mcg-salmeterol 21 mcg/actuation HFA inhaler hydrochlorothiazide 25 mg tablet 25 mg PO DAILY 01/17/21 01/21/24 Unknown History zolpidem 10 mg tablet 10 mg PO BEDTIME PRN 01/17/21 06/30/24 Unknown History amlodipine 10 mg tablet 10 mg PO DAILY 05/27/21 06/30/24 Unknown History ascorbic acid (vitamin C) 500 mg 500 mg PO BID 05/27/21 06/30/24 Unknown History tablet (Vitamin C) cholecalciferol (vitamin D3) 50 50 mcg PO DAILY 05/27/21 06/30/24 Unknown History mcg (2,000 unit) tablet tramadol 50 mg tablet 50 mg PO TID PRN 05/27/21 06/30/24 Unknown History metoprolol succinate 50 mg 50 mg PO DAILY 06/06/23 06/30/24 Unknown History tablet,extended release 24 hr sertraline 50 mg tablet 50 mg PO DAILY 06/06/23 06/30/24 Unknown History bictegravir 50 mg-emtricitabine 1 tab PO DAILY 10/16/23 06/30/24 Unknown History 200 mg-tenofovir alafenam 25 mg tablet (Biktarvy) losartan 50 mg tablet 50 mg PO DAILY 10/16/23 06/30/24 Unknown History montelukast 10 mg tablet 10 mg PO DAILY 06/30/24 06/30/24 Unknown History rosuvastatin 40 mg tablet 40 mg PO DAILY 06/30/24 06/30/24 Unknown History hydroxyzine pamoate 25 mg capsule 25 mg PO TID 10/23/24 Unknown History tesamorelin 2 mg subcutaneous 2 mg subcut DAILY 10/23/24 Unknown History solution (Egrifta SV) <King Peralta PA-C - Last Filed: 01/05/25 10:07> Physical Exam Vital Signs: Vital Signs: Last Vital Signs Temp 97.7 F 01/05/25 03:36 Pulse 64 01/05/25 03:36 Resp 18 01/05/25 03:36 BP 124/57 L 01/05/25 03:36 Pulse Ox 95 01/05/25 03:36 O2 Del Method Room Air 01/05/25 03:36 BMI result Body Mass Index 32.2 <King Peralta PA-C - Last Filed: 01/05/25 10:07> Const: General: comfortable and no acute distress <King Peralta PA-C - Last Filed: 01/05/25 10:07> Orientation/consciousness: patient oriented x3 <King Peralta PA-C - Last Filed: 01/05/25 10:07> Resp: Effort & Inspection: normal respiratory effort and able to speak in complete sentences <King Peralta PA-C - Last Filed: 01/05/25 10:07> GI: Inspection: Yes distended (Mild) <King Peralta PA-C - Last Filed: 01/05/25 10:07> Palpation (GI): Soft to palpation, not firm, Tenderness to palpation present (GI) (Tender throughout), no guarding and not rigid <DEMIAN Renee Last Filed: 01/05/25 10:07> Percussion: Yes normal to percussion <DEMIAN Renee Last Filed: 01/05/25 10:07> Neuro: General: patient oriented x3 <DEMIAN Renee Last Filed: 01/05/25 10:07> Results Results Labs: Short CBC 01/04/25 Range/Units 17:37 WBC 6.8 (4.8-10.8) X10*3/uL Hgb 13.2 (12.0-16.0) g/dl Hct 38.7 (37.0-47.0) % Plt Count 201 (160-400) X10*3/uL BMP 01/04/25 17:37 Sodium 140 Potassium 3.8 Chloride 107 Carbon Dioxide 22 BUN 15 Creatinine 0.90 Calcium 9.4 Liver Function 01/04/25 Range/Units 17:37 Total Bilirubin 0.6 (0.0-1.0) mg/dL Direct Bilirubin 0.2 (0.0-0.5) mg/dL AST 19 (5-31) U/L ALT 10 (0-31) U/L Alkaline Phosphatase 79 (39-117) U/L Albumin 4.0 (3.5-5.0) g/dL Urine 01/04/25 Range/Units 17:43 Urine Color Yellow Urine Appearance Clear Urine pH 6.0 (5.0-9.0) Ur Specific [place] 1.025 (1.005-1.025) Urine Protein Trace (Neg-Trace) mg/dL Urine Glucose (UA) Negative (Negative) mg/dL <King Peralta PA-C - Last Filed: 01/05/25 10:07> Assessment and Plan (1) Partial bowel obstruction: Qualifiers: Intestinal obstruction type: unspecified Qualified Code(s): K56.600 - Partial intestinal obstruction, unspecified as to cause <King Peralta PA-C - Last Filed: 01/05/25 10:07> Status: Acute <King Peralta PA-C - Last Filed: 01/05/25 10:07> (2) Diverticulitis: Status: Acute <King Peralta PA-C - Last Filed: 01/05/25 10:07> 64-year-old female with past medical history significant for GERD, HTN and HIV presenting to emergency department today for evaluation of epigastric pain associated with nausea and bowel distention for the last 3 days. Patient continued to have primarily epigastric abdominal pain and bloating. Denies nausea at this time. Has not had bowel movement in 2 days, denies passing fl atus. On exam the patient is mildly distended, tender throughout the abdomen primarily in the epigastric area. I have reviewed imaging obtained by the emergency department. There was evidence of small bowel dilation and distal small bowel decompression.. This sigmoid diverticulitis is not overly impressive. We will admit for observation and further management. Would recommend continuing IV antibiotics while admitted. No indication for NG tube at this time, would have short threshold if patient develops nausea, vomiting. Patient remain NPO. NPO Ambulation as tolerated IV fluids Continue IV Zosyn Pain control and antiemetics as needed Serial abdominal exams Hospitalist consult ordered for management of hypertension <King Peralta PA-C - Last Filed: 01/05/25 10:07> 64-year-old female with past medical history significant for GERD, HTN and HIV presenting to emergency department today for evaluation of epigastric pain associated with nausea and bowel distention for the last 3 days. Patient continued to have primarily epigastric abdominal pain and bloating. Denies nausea at this time. Has not had bowel movement in 2 days, denies passing flatus. On exam the patient is mildly distended, tender throughout the abdomen primarily in the epigastric area. I have reviewed imaging obtained by the emergency department. There was evidence of small bowel dilation and distal small bowel decompression.. This sigmoid diverticulitis is not overly impressive. We will admit for observation and further management. Would recommend continuing IV antibiotics while admitted. No indication for NG tube at this time, would have short threshold if patient develops nausea, vomiting. Patient remain NPO. NPO Ambulation as tolerated IV fluids Continue IV Zosyn Pain control and antiemetics as needed Serial abdominal exams Hospitalist consult ordered for management of hypertension Patient seen and examined and I agree with the above assessment and plan. Agree with continue the antibiotics and keeping NPO. WBC is normal at this time. Review of the CT abdomen and pelvis reveals extensive diverticulosis with minimal diverticulitis. No abscess is appreciated. There is a question of wall thickening of the distal ileum. May need to repeat CT with oral contrast if no improvement over the next day or 2. <Lev Burnham MD - Last Filed: 01/05/25 11:18> Quality Stroke Does the patient have a stroke diagnosis?: No <King Peralta PA-C - Last Filed: 01/05/25 10:07> VTE Prior VTE?: No <King Peralta PA-C - Last Filed: 01/05/25 10:07> VTE Risk Level:: Surgical - low <King Peralta PA-C - Last Filed: 01/05/25 10:07> VTE Device Contraindication: N/A - Device Ordered <King Peralta PA-C - Last Filed: 01/05/25 10:07> VTE Drug Contraindication: N/A - Med Ordered <King Peralta PA-C - Last Filed: 01/05/25 10:07> Procedures Date of Service Date of Service: 01/05/25 <King Peralta PA-C - Last Filed: 01/05/25 10:07> 01/05/25 <Lev Burnham MD - Last Filed: 01/05/25 11:18>
[2025-01-05] MEDS: 0.9 % Sodium Chloride Flush 3 ML SYRINGE IVFLUSH (08:35)
--- NOTE | 2025-01-05 10:42 | MHC.CM.PN ---
CM met with Patient at bedside and addressed IMM with her, providing Patient with the original and a copy has been placed on the chart. Patient lives alone in an apartment and she uses a cane @ X's to assist with mobility. Home self care vs new VNA is the tentative plan and CM as initiated and will follow for dc planning. PCP is Dr. Margi Young and Sister will transport to home at time of dc.
[2025-01-05] MEDS: HYDROmorphone HCl 0.5 MG/0.5 ML SYRINGE IVPUSH ×2 (12:43→17:32)
--- NOTE | 2025-01-05 13:40 | PHA.MEDREC ---
Pharmacy Consult ? Medication Reconciliation Pharmacy has completed the medication reconciliation. Spoke to patient using manufacturing production technician to confirm medication list. Per patient, she no longer takes vitamin c, bisacodyl, hydroxyzine, losartan (replaced by telmisartan), montelukast (replaced by loratadine-d), omeprazole, sertraline nor estradilol vaginal cream. Patient confirmed she is still taking Biktarvy daily and Egrifta 0.5 ml qd. Last dose of medication was yesterday 01/04/25 AM.
[2025-01-05] MEDS: ondansetron HCL 4 MG/2 ML VIAL IVPUSH (17:31)
--- NOTE | 2025-01-05 18:24 | P.CONHOSP_ITS ---
History of Present Illness Data of Consult Service Date: 01/05/25 Requesting physician: Jennifer Baron Primary Care Provider: Margi Young MD [facility] Reason for consult: Medical management 64-year-old female with past medical history significant for GERD, HTN and HIV presenting to emergency department today for evaluation of epigastric pain associated with nausea and bowel distention for the last 3 days. Patient states she has pain in the upper abdomen which progressed over the weekend. She states she has had an episode similar to this previously about 5-10 years ago where she was admitted for diverticulitis. She states she fell nauseous, decreased appetite and very bloated. CTA and abdomen showed partial small-bowel obstruction. Consult for medical management requested Review of Systems 2 Review of Systems: Denies chest pain Denies shortness of breath Denies nausea vomiting diarrhea Admits to abdomen pain diffuse Denies fever chills PMFSH Medical History Abnormal anal Papanicolaou smear Dyspnea on exertion Essential hypertension Family History Father Stomach cancer Mother Alzheimer disease Type 2 diabetes mellitus Hyperlipidemia Family/Other HTN (hypertension) Sleep apnea Diabetes Maternal Uncle FH: prostate cancer Stomach cancer Alzheimer disease Paternal Uncle Stomach cancer Surgical History Hx of colonoscopy Hx of tubal ligation History of carpal tunnel surgery History of back surgery Hx of eye surgery Hx of cholecystectomy Social History Household Members: None Housing: Apartment Do you presently have visiting nurse or other home services: Yes (homemaker 5 hours a week) Alcohol intake: current Alcohol intake frequency: does not drink Patient Tobacco Use Status: Never used Tobacco service: No Meds Allergies Allergy/AdvReac Type Severity Reaction Status Date / Time Penicillins [PENICILLINS] Allergy Intermediate ITCHING Verified 01/04/25 17:23 sulfamethoxazole Allergy Intermediate RASH Verified 01/04/25 17:23 [From BACTRIM] trimethoprim [From BACTRIM] Allergy Intermediate RASH Verified 01/04/25 17:23 morphine [Morphine] Allergy Mild THROAT Verified 01/04/25 17:23 SWELLING Sulfa (Sulfonamide Allergy Mild RASH/HEADAC Verified 01/04/25 17:23 Antibiotics) HE oxycodone [Percocet] Allergy Unknown redness, Verified 01/04/25 17:23 swelling, itchy Biaxin Allergy Unknown itchy Uncoded 01/04/25 17:23 Active Medications: Current Medications Acetaminophen (Acetaminophen 325 Mg Tablet) 650 mg PO Q6H PRN PRN Reason: Pain, Mild 1-3,fever,headache Hydromorphone HCl (Hydromorphone Hcl 0.5 Mg/0.5 Ml Syringe) 0.5 mg IVPUSH Q6H PRN; Protocol PRN Reason: Pain, Severe (Pain Scale 7-10) Last Admin: 01/05/25 17:32 Dose: 0.5 mg Sodium Chloride (Ns) 1,000 mls @ 100 mls/hr IVCONT .Q10H [facility] Last Admin: 01/05/25 11:31 Dose: 100 mls/hr Piperacillin Sod/Tazobactam (Sod 3.375 gm/ Sodium Chloride) 50 mls @ 100 mls/hr IV RQ6H [facility] Last Admin: 01/05/25 11:31 Dose: 100 mls/hr Ketorolac Tromethamine (Ketorolac Tromethamine 15 Mg/Ml Vial) 15 mg IVPUSH RQ6H [facility] Last Admin: 01/05/25 11:32 Dose: Not Given Melatonin (Melatonin 3 Mg Tablet) 6 mg PO BEDTIME PRN PRN Reason: Insomnia Ondansetron HCl (Ondansetron Hcl 4 Mg/2 Ml Vial) 4 mg IVPUSH Q8H PRN PRN Reason: Nausea and Vomiting Last Admin: 01/05/25 17:31 Dose: 4 mg Sodium Chloride (0.9 % Sodium Chloride Flush 3 Ml Syringe) 3 ml IVFLUSH QSHIFT [facility] Last Admin: 01/05/25 15:29 Dose: Not Given Home Medications ?Medication ?Instructions ?Recorded ?Confirmed ?Last Taken ?Type fluticasone propionate 230 2 puff inhalation BID PRN Wheezing 01/17/21 01/05/25 Unknown History mcg-salmeterol 21 mcg/actuation HFA inhaler zolpidem 10 mg tablet 10 mg PO BEDTIME PRN Insomnia 01/17/21 01/05/25 Unknown History amlodipine 10 mg tablet 10 mg PO DAILY 05/27/21 01/05/25 01/04/25 History cholecalciferol (vitamin D3) 50 50 mcg PO DAILY 05/27/21 01/05/25 01/04/25 History mcg (2,000 unit) tablet tramadol 50 mg tablet 50 mg PO TID PRN Pain 05/27/21 01/05/25 Unknown History metoprolol succinate 50 mg 50 mg PO DAILY 06/06/23 01/05/25 01/04/25 History tablet,extended release 24 hr bictegravir 50 mg-emtricitabine 1 tab PO BEDTIME 10/16/23 01/05/25 01/03/25 History 200 mg-tenofovir alafenam 25 mg tablet (Biktarvy) rosuvastatin 40 mg tablet 40 mg PO DAILY 06/30/24 01/05/25 01/04/25 History tesamorelin 2 mg subcutaneous 2 mg subcut DAILY 10/23/24 01/05/25 01/04/25 History solution (Egrifta SV) albuterol sulfate 2.5 mg/3 mL 2.5 mg Q6H PRN wheezing 01/05/25 01/05/25 Unknown History (0.083 %) solution for nebulization chlorthalidone 25 mg tablet 25 mg PO DAILY 01/05/25 01/05/25 01/04/25 History loratadine-pseudoephedrine ER 10 1 tab PO DAILY 01/05/25 01/05/25 01/04/25 History mg-240 mg tablet,extended [id number] (Loratadine-D) telmisartan 20 mg tablet 20 mg PO DAILY 01/05/25 01/05/25 01/04/25 History trazodone 50 mg tablet 75 mg PO BEDTIME 01/05/25 01/05/25 01/03/25 History Physical Exam 2 Vital Signs and Narrative: Vital Signs: Last Vital Signs Temp 96.9 F 01/05/25 16:00 Pulse 63 01/05/25 16:00 Resp 18 01/05/25 16:00 BP 140/64 H 01/05/25 16:00 Pulse Ox 95 01/05/25 16:00 O2 Del Method Room Air 01/05/25 16:00 BMI result Body Mass Index 32.2 Const: Other: Awake alert oriented x3 in no acute distress Resp: Other: Clear to auscultation bilaterally no rales rhonchi or wheezes Cardio: Other: No S4; positive S1-S2; no S3 murmurs rubs or gallops GI: Other: Soft diffusely tender with quiet bowel sounds Extrem: Other: No edema bilaterally Results Labs 01/04/25 17:37 01/04/25 17:37 Labs: Laboratory Results - last 24 hr 01/04/25 01/04/25 17:37 22:51 Anion Gap 15 Estim Creat Clear Calc 68.4 Estimated GFR > 60 Random Glucose 106 Lactic Acid 0.6 Calcium 9.4 Total Bilirubin 0.6 Direct Bilirubin 0.2 AST 19 ALT 10 Alkaline Phosphatase 79 Total Protein 7.3 Albumin 4.0 Lipase 26 Assessment and Plan (1) Partial bowel obstruction: Qualifiers: Intestinal obstruction type: unspecified Qualified Code(s): K56.600 - Partial intestinal obstruction, unspecified as to cause Status: Acute (2) HIV (human immunodeficiency virus infection): Qualifiers: HIV symptom status: unspecified Qualified Code(s): Z21 - Asymptomatic human immunodeficiency virus [HIV] infection status Status: Acute (3) Essential hypertension: Status: Acute Plan 64-year-old female past medical history significant for GERD hypertension and HIV presented to the emergency room for evaluation of abdominal pain and bowel distention. Workup consistent with partial small bowel obstruction. Admitted to surgical service requesting medical management 1. Partial small bowel obstruction -management as per surgical service 2. HIV -continue outpatient management 3. Essential hypertension -acceptable control at present -at therapies as indicated We will follow
--- NOTE | 2025-01-05 19:20 | PC.NURSE ---
spoke with pharmacy regarding the allergy to PCN as antibiotic was to be given. patient has had 2 doses previously and no reaction noted. passed information onto the night baker if any issues with itchiness to call MD. I also informed Dr Stacy
[2025-01-05] MEDS: traZODone HCL 25 MG HALFTAB 75 MG PO (21:05)
[2025-01-05] MEDS: Bictegrav/Emtricit/Tenofov Ala TABLET 1 TAB PO (21:05)
[2025-01-06] MEDS: Piperacillin Sodium/Tazobactam 3.375 GM in 0.9 % Sodium Chloride 50 ML IV ×5 (00:30→23:05)
[2025-01-06] MEDS: 0.9 % Sodium Chloride Flush 3 ML SYRINGE IVFLUSH ×2 (00:30→21:45)
[2025-01-06] MEDS: Ketorolac Tromethamine 15 MG/ML VIAL IVPUSH ×5 (00:31→23:06)
[2025-01-06 03:35] VITALS: BP 133/61; PULSE 51; RESP 18; TEMP 36.8; O2SAT 95
[2025-01-06] MEDS: 0.9 % Sodium Chloride 1,000 ML 100 ML IVCONT ×2 (04:49→14:22)
[2025-01-06] MEDS: HYDROmorphone HCl 0.5 MG/0.5 ML SYRINGE IVPUSH ×2 (04:54→15:52)
[2025-01-06] MEDS: Omeprazole 40 MG CAPSULE.DR PO (06:25)
[2025-01-06 07:46] VITALS: BP 110/70; PULSE 48; RESP 18; TEMP 36.3; O2SAT 94
[2025-01-06] MEDS: Valsartan 40 MG TABLET PO (08:29)
[2025-01-06] MEDS: amLODIPine Besylate 10 MG TABLET PO (08:29)
[2025-01-06] MEDS: Mirabegron 50 MG TAB.ER.24H PO (08:29)
--- NOTE | 2025-01-06 08:29 | P.PNGS_ITS ---
Subjective Subjective Date of Service: 01/06/25 Interval history: Patient improving this morning. pain is improved, now 4/10 at rest. Feels less bloated this morning. Endorses some mild nausea. Denies vomiting, fever, chills. Endorses passing moderate amounts of gas overnight, as well as a small liquid stool Physical Exam 2 Vital Signs: Vital Signs: Last Vital Signs Temp 97.4 F 01/06/25 07:46 Pulse 48 L 01/06/25 07:46 Resp 18 01/06/25 07:46 BP 110/70 01/06/25 07:46 Pulse Ox 94 01/06/25 07:46 O2 Del Method Room Air 01/06/25 07:46 BMI result Body Mass Index 32.2 Const: General: comfortable and no acute distress O rientation/consciousness: patient oriented x3 Resp: Effort & Inspection: normal respiratory effort and able to speak in complete sentences GI: Inspection: No distended Palpation (GI): Soft to palpation, not firm, Tenderness to palpation present (GI), no guarding and not rigid Percussion: Y es normal to percussion Neuro: General: patient oriented x3 Objective Data Active Medications Acetaminophen (Acetaminophen 325 Mg Tablet) 650 mg PO Q6H PRN PRN Reason: Pain, Mild 1-3,fever,headache Albuterol Sulfate (Albuterol Sulfate (0.083%) 2.5 Mg/3 Ml Vial.Neb) 2.5 mg INHALE Q6H PRN PRN Reason: wheezing Amlodipine Besylate (Amlodipine Besylate 10 Mg Tablet) 10 mg PO DAILY [facility]; Protocol Bictegravir/Emtricitabine/Tenofovir (Bictegrav/Emtricit/Tenofov Ala Tablet) 1 tab PO BEDTIME FERNY Last Admin: 01/05/25 21:05 Dose: 1 tab Documented By: REHAN Fluticasone/Vilanterol (Fluticasone/Vilanterol 200/25 Blst.W.Dev) 1 puff INHALE DAILY PRN PRN Reason: Wheezing Hydromorphone HCl (Hydromorphone Hcl 0.5 Mg/0.5 Ml Syringe) 0.5 mg IVPUSH Q6H PRN; Protocol PRN Reason: Pain, Severe (Pain Scale 7-10) Last Admin: 01/06/25 04:54 Dose: 0.5 mg Documented By: FRITZ Sodium Chloride (Ns) 1,000 mls @ 100 mls/hr IVCONT .Q10H [facility] Last Admin: 01/06/25 06:34 Dose: Not Given Documented By: FRITZ Non-Admin Reason: IV Running Piperacillin Sod/Tazobactam (Sod 3.375 gm/ Sodium Chloride) 50 mls @ 100 mls/hr IV RQ6H [facility] Last Infusion: 01/06/25 07:02 Dose: Infused Documented By: FRITZ Ketorolac Tromethamine (Ketorolac Tromethamine 15 Mg/Ml Vial) 15 mg IVPUSH RQ6H [facility] Last Admin: 01/06/25 06:25 Dose: 15 mg Documented By: FRITZ Melatonin (Melatonin 3 Mg Tablet) 6 mg PO BEDTIME PRN PRN Reason: Insomnia Metoprolol Succinate (Metoprolol Succinate Er 50 Mg Tab.Er.24h) 50 mg PO DAILY [facility]; Protocol Last Admin: 01/06/25 07:56 Dose: Not Given Documented By: FRITZ Non-Admin Reason: Decreased Heart Rate Mirabegron (Mirabegron 50 Mg Tab.Er.24h) 50 mg PO DAILY [facility] Omeprazole (Omeprazole 40 Mg Capsule.Dr) 40 mg PO DAILY@0630 [facility] Last Admin: 01/06/25 06:25 Dose: 40 mg Documented By: FRITZ Ondansetron HCl (Ondansetron Hcl 4 Mg/2 Ml Vial) 4 mg IVPUSH Q8H PRN PRN Reason: Nausea and Vomiting Last Admin: 01/05/25 17:31 Dose: 4 mg Documented By: JODI Sodium Chloride (0.9 % Sodium Chloride Flush 3 Ml Syringe) 3 ml IVFLUSH QSHIFT [facility] Last Admin: 01/06/25 06:34 Dose: Not Given Documented By: FRITZ Non-Admin Reason: IV Running Trazodone HCl (Trazodone Hcl 25 Mg Halftab) 75 mg PO BEDTIME [facility] Last Admin: 01/05/25 21:05 Dose: 75 mg Documented By: REHAN Valsartan (Valsartan 40 Mg Tablet) 40 mg PO DAILY [facility] Zolpidem Tartrate (Zolpidem Tartrate 5 Mg Tablet) 10 mg PO BEDTIME PRN PRN Reason: Insomnia Labs 01/04/25 17:37 01/04/25 17:37 Microbiology Microbiology Results: Microbiology 01/04/25 22:51 Blood Culture - Preliminary Blood - Venous No growth after 24 hours. 01/04/25 22:51 Blood Culture - Preliminary Blood - Venous No growth after 24 hours. Procedures Date of Service Date of Service: 01/06/25 Progress Note: A&P Assessment and plan (1) Partial bowel obstruction: Status: Acute (2) Diverticulitis: Status: Acute Plan 64 year old female admitted for management of partial SBO and diverticulitis. Patient is doing well this morning, beginning to improve. Pain is improving, patient feels less bloated. Passing gas, and small amount of liquid stool. Abdominal exam improved from yesterday, no distention noted. Mild pain to palpation in the suprapubic and epigastric area. Patient appears clinically unobstructed currently. Will continue with conservative management, will advance diet to clears. Hospitalist consult appreciated. Trial clear liquid diet Continue IV zosyn Pain control serial abdominal exams Time Spent With Patient Time: Total time managing care of this patient today ____ minutes. Quality Stroke Does the patient have a stroke diagnosis?: No VTE Prior VTE?: No VTE Risk Level:: Surgical - low VTE Device Contraindication: N/A - Device Ordered VTE Drug Contraindication: N/A - Med Ordered
[2025-01-06 12:00] VITALS: BP 101/47; PULSE 56; RESP 20; TEMP 36.2; O2SAT 97
[2025-01-06 15:29] VITALS: BP 142/61; PULSE 52; RESP 18; TEMP 36.2; O2SAT 98
--- NOTE | 2025-01-06 15:33 | P.PNIM_ITS ---
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 States pain improved since admission. Tolerating clear liquid diet without issue Review of Systems Denies chest pain Denies shortness of breath Denies nausea vomiting diarrhea Admits to abdomen pain that has improved Denies fever chills Physical Exam 2 Vital Signs: Vital Signs: Last Vital Signs Temp 97.1 F 01/06/25 15:29 Pulse 52 01/06/25 15:29 Resp 18 01/06/25 15:29 BP 142/61 H 01/06/25 15:29 Pulse Ox 98 01/06/25 15:29 O2 Del Method Room Air 01/06/25 15:29 BMI result Body Mass Index 32.2 Const: Other: Awake alert oriented x3 in no acute distress Resp: Other: Clear to auscultation bilaterally no rales rhonchi or wheezes Cardio: Other: No S4; positive S1-S2; no S3 murmurs rubs or gallops GI: Other: Soft mild tenderness lower abdomen. Positive bowel sounds all quadrants Extrem: Other: No edema bilaterally Objective Data Active Medications Acetaminophen (Acetaminophen 325 Mg Tablet) 650 mg PO Q6H PRN PRN Reason: Pain, Mild 1-3,fever,headache Albuterol Sulfate (Albuterol Sulfate (0.083%) 2.5 Mg/3 Ml Vial.Neb) 2.5 mg INHALE Q6H PRN PRN Reason: wheezing Amlodipine Besylate (Amlodipine Besylate 10 Mg Tablet) 10 mg PO DAILY [facility]; Protocol Last Admin: 01/06/25 08:29 Dose: 10 mg Documented By: FRITZ Bictegravir/Emtricitabine/Tenofovir (Bictegrav/Emtricit/Tenofov Ala Tablet) 1 tab PO BEDTIME FERNY Last Admin: 01/05/25 21:05 Dose: 1 tab Documented By: REHAN Fluticasone/Vilanterol (Fluticasone/Vilanterol 200/25 Blst.W.Dev) 1 puff INHALE DAILY PRN PRN Reason: Wheezing Hydromorphone HCl (Hydromorphone Hcl 0.5 Mg/0.5 Ml Syringe) 0.5 mg IVPUSH Q6H PRN; Protocol PRN Reason: Pain, Severe (Pain Scale 7-10) Last Admin: 01/06/25 04:54 Dose: 0.5 mg Documented By: FRITZ Sodium Chloride (Ns) 1,000 mls @ 100 mls/hr IVCONT .Q10H [facility] Last Admin: 01/06/25 14:22 Dose: 100 mls/hr Documented By: FRITZ Piperacillin Sod/Tazobactam (Sod 3.375 gm/ Sodium Chloride) 50 mls @ 100 mls/hr IV RQ6H [facility] Last Infusion: 01/06/25 13:57 Dose: Infused Documented By: FRITZ Ketorolac Tromethamine (Ketorolac Tromethamine 15 Mg/Ml Vial) 15 mg IVPUSH RQ6H [facility] Last Admin: 01/06/25 12:04 Dose: 15 mg Documented By: FRITZ Melatonin (Melatonin 3 Mg Tablet) 6 mg PO BEDTIME PRN PRN Reason: Insomnia Metoprolol Succinate (Metoprolol Succinate Er 50 Mg Tab.Er.24h) 50 mg PO DAILY [facility]; Protocol Last Admin: 01/06/25 07:56 Dose: Not Given Documented By: FRITZ Non-Admin Reason: Decreased Heart Rate Mirabegron (Mirabegron 50 Mg Tab.Er.24h) 50 mg PO DAILY [facility] Last Admin: 01/06/25 08:29 Dose: 50 mg Documented By: FRITZ Omeprazole (Omeprazole 40 Mg Capsule.Dr) 40 mg PO DAILY@0630 [facility] Last Admin: 01/06/25 06:25 Dose: 40 mg Documented By: FRITZ Ondansetron HCl (Ondansetron Hcl 4 Mg/2 Ml Vial) 4 mg IVPUSH Q8H PRN PRN Reason: Nausea and Vomiting Last Admin: 01/05/25 17:31 Dose: 4 mg Documented By: JODI Sodium Chloride (0.9 % Sodium Chloride Flush 3 Ml Syringe) 3 ml IVFLUSH QSHIFT [facility] Last Admin: 01/06/25 06:34 Dose: Not Given Documented By: FRITZ Non-Admin Reason: IV Running Trazodone HCl (Trazodone Hcl 25 Mg Halftab) 75 mg PO BEDTIME [facility] Last Admin: 01/05/25 21:05 Dose: 75 mg Documented By: REHAN Valsartan (Valsartan 40 Mg Tablet) 40 mg PO DAILY [facility] Last Admin: 01/06/25 08:29 Dose: 40 mg Documented By: FRITZ Zolpidem Tartrate (Zolpidem Tartrate 5 Mg Tablet) 10 mg PO BEDTIME PRN PRN Reason: Insomnia Labs 01/04/25 17:37 01/04/25 17:37 Microbiology Microbiology Results: Microbiology 01/04/25 22:51 Blood Culture - Preliminary Blood - Venous No growth after 24 hours. 01/04/25 22:51 Blood Culture - Preliminary Blood - Venous No growth after 24 hours. Assessment and Plan (1) Partial bowel obstruction: Status: Acute (2) HIV (human immunodeficiency virus infection): Status: Acute Plan 64-year-old female past medical history significant for GERD hypertension and HIV presented to the emergency room for evaluation of abdominal pain and bowel distention. Workup consistent with partial small bowel obstruction. Admitted to surgical service requesting medical management 1. Partial small bowel obstruction -improving. Encouraged ambulation -Zosyn (2) -advance diet as tolerated -discussed with surgery; very low likelihood of surgical intervention. .. will transfer to medicine service 2. HIV -continue outpatient management 3. Essential hypertension -acceptable control at present -at therapies as indicated Requires ongoing hospitalization to continue IV antibiotics and supplemental fluids for partial small-bowel obstruction. Quality Stroke Does the patient have a stroke diagnosis?: No VTE Prior VTE?: No VTE Risk Level:: Surgical - low VTE Device Contraindication: N/A - Device Ordered VTE Drug Contraindication: N/A - Med Ordered
[2025-01-06 16:19] VITALS: BMI 33.3
--- NOTE | 2025-01-06 17:30 | PC.NURSE ---
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 Patient has been receiving IV zosyn. Patient reports she has experienced mild itching when receiving the medication, but that it ceases quickly. Patient denies any further issues with taking the IV zosyn and consents to continued administration.
[2025-01-06 19:48] VITALS: BP 117/55; PULSE 52; RESP 18; TEMP 36.8; O2SAT 95
[2025-01-06] MEDS: Bictegrav/Emtricit/Tenofov Ala TABLET 1 TAB PO (21:44)
[2025-01-06] MEDS: Zolpidem Tartrate 5 MG TABLET 10 MG PO (21:44)
[2025-01-06] MEDS: traZODone HCL 25 MG HALFTAB 75 MG PO (21:44)
[2025-01-07 04:00] VITALS: BP 142/64; PULSE 68; RESP 18; TEMP 36.1
[2025-01-07] MEDS: Piperacillin Sodium/Tazobactam 3.375 GM in 0.9 % Sodium Chloride 50 ML IV ×2 (06:20→12:23)
[2025-01-07] MEDS: Ketorolac Tromethamine 15 MG/ML VIAL IVPUSH (06:21)
[2025-01-07] MEDS: Omeprazole 40 MG CAPSULE.DR PO (06:21)
[2025-01-07 07:42] VITALS: BP 133/58; PULSE 64; RESP 16; TEMP 36.2; O2SAT 95
--- NOTE | 2025-01-07 07:57 | P.PNGS_ITS ---
Subjective Subjective Date of Service: 01/07/25 Patient reports: no new complaints, feels better, flatus and bowel movement (liquid) Interval history: patient improving, feels better today. Continues to have mild abd pain in the epigastric area. Feels less bloated. Passing lots of flatus, small liquid bowel movement. Tolerating full liquid diet. Ambulating as tolerated. Denies nausea, vomiting Physical Exam 2 Vital Signs: Vital Signs: Last Vital Signs Temp 97.2 F 01/07/25 07:42 Pulse 64 01/07/25 07:42 Resp 16 01/07/25 07:42 BP 133/58 L 01/07/25 07:42 Pulse Ox 95 01/07/25 07:42 O2 Del Method Room Air 01/06/25 19:48 BMI result Body Mass Index 33.3 Const: General: comfortable and no acute distress O rientation/consciousness: patient oriented x3 Resp: Effort & Inspection: normal respiratory effort and able to speak in complete sentences GI: Inspection: No distended Palpation (GI): Soft to palpation, not firm, Tenderness to palpation present (GI) (mild) in the epigastrum, no guarding and not rigid Percussion: Yes normal to percussion Neuro: General: patient oriented x3 Objective Data Active Medications Acetaminophen (Acetaminophen 325 Mg Tablet) 650 mg PO Q6H PRN PRN Reason: Pain, Mild 1-3,fever,headache Albuterol Sulfate (Albuterol Sulfate (0.083%) 2.5 Mg/3 Ml Vial.Neb) 2.5 mg INHALE Q6H PRN PRN Reason: wheezing Amlodipine Besylate (Amlodipine Besylate 10 Mg Tablet) 10 mg PO DAILY [facility]; Protocol Last Admin: 01/06/25 08:29 Dose: 10 mg Documented By: FRITZ Bictegravir/Emtricitabine/Tenofovir (Bictegrav/Emtricit/Tenofov Ala Tablet) 1 tab PO BEDTIME [facility] Last Admin: 01/06/25 21:44 Dose: 1 tab Documented By: ASHLI Fluticasone/Vilanterol (Fluticasone/Vilanterol 200/25 Blst.W.Dev) 1 puff INHALE DAILY PRN PRN Reason: Wheezing Hydromorphone HCl (Hydromorphone Hcl 0.5 Mg/0.5 Ml Syringe) 0.5 mg IVPUSH Q6H PRN; Protocol PRN Reason: Pain, Severe (Pain Scale 7-10) Last Admin: 01/06/25 15:52 Dose: 0.5 mg Documented By: FELICIA Piperacillin Sod/Tazobactam (Sod 3.375 gm/ Sodium Chloride) 50 mls @ 100 mls/hr IV RQ6H COUNTS INCLUDE 234 BEDS AT THE [facility] Last Infusion: 01/07/25 06:50 Dose: Infused Documented By: ASHLI Ketorolac Tromethamine (Ketorolac Tromethamine 15 Mg/Ml Vial) 15 mg IVPUSH RQ6H COUNTS INCLUDE 234 BEDS AT THE [facility] Last Admin: 01/07/25 06:21 Dose: 15 mg Documented By: ASHLI Melatonin (Melatonin 3 Mg Tablet) 6 mg PO BEDTIME PRN PRN Reason: Insomnia Metoprolol Succinate (Metoprolol Succinate Er 50 Mg Tab.Er.24h) 50 mg PO DAILY COUNTS INCLUDE 234 BEDS AT THE [facility]; Protocol Last Admin: 01/06/25 07:56 Dose: Not Given Documented By: FRITZ Non-Admin Reason: Decreased Heart Rate Mirabegron (Mirabegron 50 Mg Tab.Er.24h) 50 mg PO DAILY COUNTS INCLUDE 234 BEDS AT THE [facility] Last Admin: 01/06/25 08:29 Dose: 50 mg Documented By: FRITZ Omeprazole (Omeprazole 40 Mg Capsule.Dr) 40 mg PO DAILY@0630 COUNTS INCLUDE 234 BEDS AT THE [facility] Last Admin: 01/07/25 06:21 Dose: 40 mg Documented By: ASHLI Ondansetron HCl (Ondansetron Hcl 4 Mg/2 Ml Vial) 4 mg IVPUSH Q8H PRN PRN Reason: Nausea and Vomiting Last Admin: 01/05/25 17:31 Dose: 4 mg Documented By: JODI Sodium Chloride (0.9 % Sodium Chloride Flush 3 Ml Syringe) 3 ml IVFLUSH QSHIFT COUNTS INCLUDE 234 BEDS AT THE [facility] Last Admin: 01/06/25 21:45 Dose: 3 ml Documented By: ASHLI Trazodone HCl (Trazodone Hcl 25 Mg Halftab) 75 mg PO BEDTIME COUNTS INCLUDE 234 BEDS AT THE [facility] Last Admin: 01/06/25 21:44 Dose: 75 mg Documented By: ASHLI Valsartan (Valsartan 40 Mg Tablet) 40 mg PO DAILY COUNTS INCLUDE 234 BEDS AT THE [facility] Last Admin: 01/06/25 08:29 Dose: 40 mg Documented By: FRITZ Zolpidem Tartrate (Zolpidem Tartrate 5 Mg Tablet) 10 mg PO BEDTIME PRN PRN Reason: Insomnia Last Admin: 01/06/25 21:44 Dose: 10 mg Documented By: ALEXANDER-MEY Labs 01/04/25 17:37 01/04/25 17:37 Microbiology Microbiology Results: Microbiology 01/04/25 22:51 Blood Culture - Preliminary Blood - Venous No growth after 48 hours. 01/04/25 22:51 Blood Culture - Preliminary Blood - Venous No growth after 48 hours. Procedures Date of Service Date of Service: 01/07/25 Progress Note: A&P Assessment and plan (1) Partial bowel obstruction: Status: Acute (2) Diverticulitis: Status: Acute Plan 64 year old female admitted for SBO and mild diverticulitis. Patient improving today, pain better, she feels less distended. Abdomen is soft and benign, mild tenderness in the epigastric area. Patient toleratinig full liquid diet, will progress to regular diet. if tolerating, patient can likely be d/c Trial regular diet Ambulation as tolerated. serial abdominal exams Time Spent With Patient Time: Total time managing care of this patient today ____ minutes. Quality Stroke Does the patient have a stroke diagnosis?: No VTE Prior VTE?: No VTE Risk Level:: Surgical - low VTE Device Contraindication: N/A - Device Ordered VTE Drug Contraindication: N/A - Med Ordered
[2025-01-07 09:42] VITALS: BP 145/74
[2025-01-07] MEDS: amLODIPine Besylate 10 MG TABLET PO (09:42)
[2025-01-07 09:43] VITALS: BP 145/74
[2025-01-07] MEDS: Valsartan 40 MG TABLET PO (09:43)
[2025-01-07 09:44] VITALS: BP 145/74; PULSE 76
[2025-01-07] MEDS: Metoprolol Succinate ER 50 MG TAB.ER.24H PO (09:44)
[2025-01-07] MEDS: Mirabegron 50 MG TAB.ER.24H PO (09:45)
[2025-01-07] MEDS: 0.9 % Sodium Chloride Flush 3 ML SYRINGE IVFLUSH (09:45)
--- NOTE | 2025-01-07 11:45 | MHC.CM.PN ---
Addendum entered by Katerin Carr RN 01/07/25 12:14: Family transport at 2pm. RN aware. Addendum entered by Katerin Carr RN 01/07/25 12:10: Patient medically cleared for dc home - will resume [employer] services w/ Georgina who is aware of dc. Private transport. Original Note: Per MD rounds not medically cleared for dc. Potential dc later today if tolerating diet. CM will continue to follow.
--- NOTE | 2025-01-07 12:01 | P.DS_ITS ---
DS: Providers Provider Date of Service: 01/07/25 Date of admission: 01/05/25 00:45 Date of discharge: 01/07/25 Primary care physician: Margi Young MD Consults: 01/05/25 12:20 Consult to Hospitalist Routine Comment: Consulting Provider: [facility] [place] Hospitalists Reason For Exam: HTN, HIV DS: Diagnosis Discharge Diagnosis (1) Partial bowel obstruction: Status: Acute (2) Diverticulitis: Status: Acute DS: Summary Hospital Course Hospital Course: 64-year-old female with past medical history significant for GERD, HTN and HIV presenting to emergency department today for evaluation of epigastric pain associated with nausea and bowel distention for the last 3 days. Patient states she has pain in the upper abdomen which progressed over the weekend. She states she has had an episode similar to this previously about 5-10 years ago where she was admitted for diverticulitis. She states she fell nauseous, decreased appetite and very bloated. She states she has not had a bowel movement about 2 days. She denies fever, chills. She denies passing flatus or bowel movement. Patient had CT in the ED showing partial SBO, and possible mild diverticulitis of the sigmoid colon. Patient has no elevated WBC on labs. Patient was started on IV Zosyn, she is now NPO. Admitted to surgical service and was kept NPO. Switch to medical service as became evident patient will not likely need surgical intervention. She was maintained on Zosyn and her diet was advanced without issue. She increased her ambulation on the day of discharge she tolerated a regular diet for breakfast and lunch in his anxious for discharge. At this point in time she is medically acceptable for same. Omeprazole will be added to her regimen x1 month along with a 5 day course of Augmentin to complete a one-week course of antibiotics. She is given a short course of Toradol for pain at her request. Time Attestation Discharge Coordination Time (in mins): 35 Quality: Safe Use of Opioids Does Pt have an Active Cancer Diagnosis on the Problem List?: No Quality: Stroke Does the patient have a stroke diagnosis?: No Physical Exam Vital Signs: Vital Signs: Last Vital Signs Temp 97.2 F 01/07/25 07:42 Pulse 76 01/07/25 09:44 Resp 16 01/07/25 07:42 BP 145/74 H 01/07/25 09:44 Pulse Ox 95 01/07/25 07:42 O2 Del Method Room Air 01/06/25 19:48 BMI result Body Mass Index 33.3 Const: Other: Awake alert oriented x3 in no acute distress Resp: Other: Clear to auscultation bilaterally no rales rhonchi or wheezes Cardio: Other: No S4; positive S1-S2; no S3 murmurs rubs or gallops GI: Other: Soft mild tenderness lower abdomen. Positive bowel sounds all quadrants Extrem: Other: No edema bilaterally DS: Data Data Completed and Pending Labs on day of discharge: Preliminary micro results at discharge 01/04/25 22:51 Blood Culture - Preliminary Blood - Venous No growth after 48 hours. 01/04/25 22:51 Blood Culture - Preliminary Blood - Venous No growth after 48 hours. Discharge Plan Discharge Anticipated Discharge Date/Time: 01/07/25 11:55 Patient Disposition: Home, Self-Care Discharge Diagnosis: Partial small-bowel obstruction Referrals: Margi Young MD [Primary Care Provider, Medical] - 1 Week Discharge Medications: New omeprazole 40 mg Capsule,Delayed Release(Dr/Ec) 40 mg PO DAILY@0630 Qty: 30 0RF amoxicillin-pot clavulanate 875-125 mg tablet 1 tab PO BID Qty: 8 0RF ketorolac 10 mg tablet 10 mg PO Q8H 3 Days Qty: 9 0RF Continued ipratropium-albuterol 0.5 mg-3 mg(2.5 mg base)/3 mL solution for nebulization 3 ml inhalation Q4-6H PRN (Reason: wheezing) 30 Days Qty: 270 6RF albuterol sulfate 2.5 mg /3 mL (0.083 %) solution for nebulization 2.5 mg Q6H PRN (Reason: wheezing) trazodone 50 mg tablet 75 mg PO BEDTIME chlorthalidone 25 mg tablet 25 mg PO DAILY telmisartan 20 mg tablet 20 mg PO DAILY Loratadine-D 10-240 mg tablet extended release 24 hr 1 tab PO DAILY zolpidem 10 mg tablet 10 mg PO BEDTIME PRN (Reason: Insomnia) fluticasone propion-salmeterol 230-21 mcg/actuation HFA aerosol inhaler 2 puff inhalation BID PRN (Reason: Wheezing) cholecalciferol (vitamin D3) 50 mcg (2,000 unit) tablet 50 mcg PO DAILY amlodipine 10 mg tablet 10 mg PO DAILY tramadol 50 mg tablet 50 mg PO TID PRN (Reason: Pain) metoprolol succinate 50 mg tablet extended release 24 hr 50 mg PO DAILY mirabegron [Myrbetriq] 50 mg tablet extended release 24 hr 50 mg PO DAILY Qty: 30 2RF Biktarvy 50-200-25 mg tablet 1 tab PO BEDTIME rosuvastatin 40 mg tablet 40 mg PO DAILY Egrifta SV 2 mg recon soln 2 mg subcut DAILY Discharge Orders: Discharge Order (Routine); Ordered 01/07/25 Ordered By: Herb Stacy Diet: Advance to usual diet Activity on Discharge: As tolerated Stand Alone Forms: Patient Portal Discharge page Print Language: Maltese Care Plan Goals: Omeprazole has been added to your regimen. Continue until seen by your primary care physician. Augmentin as an antibiotic which she need to take for the next 5 days and then stop. Utilize Toradol for pain Health Concerns: Advance diet slowly Plan of Treatment: Follow up with the PCP next available Assessment: See discharge summary
[2025-01-07 13:58] VITALS: BP 129/53; PULSE 60; RESP 14; TEMP 36.2; O2SAT 98
== END 2025-01-07 14:27 | disposition home or self-care (01) | DRG 389 ==
LOC: HO.ED 23:23 → HO.EDOVER 01-05 01:16 → HO.IMC 01-05 13:26 → HO.S3 01-06 13:29
PROVIDERS: Nurse Practitioner Family; Physician Assistant Medical; Admitting Provider Surgery; Emergency Provider Internal Medicine; PCP Family Medicine; Visit Provider Hospitalist
DX: K56.600 Partial intestinal obstruction, unspecified as to cause (principal); K57.32 Diverticulitis of large intestine without perforation or abscess without bleeding; Z21 Asymptomatic human immunodeficiency virus [HIV] infection status; I10 Essential (primary) hypertension; K21.9 Gastro-esophageal reflux disease without esophagitis; Z79.899 Other long term (current) drug therapy
CPT/HCPCS: 36415; 71045; 74177; 80048; 80076; 81001; 83605; 83690; 85025; 87040; 93005; 99285; J0131; J0696; J1171; J1836; J1885; J2405; J2543; J7120; Q9967

== ENCOUNTER → 2025-01-04 18:38 | Outpatient (BNV) | payer OTHER, SELFPAY | PROVIDERS: Emergency Provider Internal Medicine; PCP Family Medicine; Visit Provider Radiology Diagnostic Radiology | DX: K57.30 Diverticulosis of large intestine without perforation or abscess without bleeding (principal); R10.13 Epigastric pain | CPT/HCPCS: 71045; 74177 ==

== ENCOUNTER → 2025-01-04 23:06 | Outpatient (BNV) | payer OTHER, SELFPAY | PROVIDERS: Admitting Provider Surgery; Emergency Provider Internal Medicine; PCP Family Medicine; Visit Provider Internal Medicine Cardiovascular Disease | DX: R07.89 Other chest pain (principal) | CPT/HCPCS: 93010 ==

== ENCOUNTER → 2025-01-05 00:45 | Outpatient (BNV) | payer OTHER, SELFPAY | PROVIDERS: Admitting Provider Surgery; Emergency Provider Internal Medicine; PCP Family Medicine; Visit Provider Hospitalist | DX: K56.600 Partial intestinal obstruction, unspecified as to cause (principal); Z21 Asymptomatic human immunodeficiency virus [HIV] infection status; I10 Essential (primary) hypertension | CPT/HCPCS: 99223; 99239 ==

== ENCOUNTER → 2025-01-05 00:45 | Outpatient (BNV) | payer OTHER, SELFPAY | PROVIDERS: Admitting Provider Surgery; Emergency Provider Internal Medicine; PCP Family Medicine | DX: K56.600 Partial intestinal obstruction, unspecified as to cause (principal); K57.92 Diverticulitis of intestine, part unspecified, without perforation or abscess without bleeding | CPT/HCPCS: 99222; 99232 ==

== ENCOUNTER 2025-01-13 15:39 | Outpatient (REF) | payer OTHER, SELFPAY ==
--- NOTE | ~2025-01-13 | MM_ITS ---
EXAMINATION: MM SCREENING DIGITAL BREAST TOMOSYNTHESIS, BILATERAL CLINICAL INFORMATION: Screening. Asymptomatic. COMPARISON: Mammography: Comparison is made with available priors TECHNIQUE: Digital breast mammography with tomosynthesis is performed in both the craniocaudal and mediolateral oblique views along with computer-aided detection (CAD). FINDINGS: There are scattered areas of fibroglandular density (ACR BI-RADS breast composition Category b). There are no significant masses, abnormal calcifications, or other abnormalities. MM/MM tomosynthesis screening BI IMPRESSION: No mammographic evidence of malignancy. ASSESSMENT: BI-RADS BI-RADS 1 - Negative RECOMMENDATION: Routine annual mammography screening. 1 year F/U This examination should not preclude the clinical evaluation of a suspicious palpable abnormality. This patient's information was entered into a reminder system with a target due date for their next mammogram. Electronically signed by: Renae Gasca DO 01/16/2025 05:42 PM EDT
== END 2025-01-13 15:40 | disposition home or self-care (01) ==
LOC: HO.MAMMO 15:39
PROVIDERS: PCP Family Medicine; Visit Provider Family Medicine
DX: Z12.31 Encounter for screening mammogram for malignant neoplasm of breast (principal)
CPT/HCPCS: 77063; 77067

== ENCOUNTER → 2025-01-13 16:15 | Outpatient (BNV) | payer OTHER, SELFPAY | PROVIDERS: PCP Family Medicine; Visit Provider Internal Medicine | DX: Z12.31 Encounter for screening mammogram for malignant neoplasm of breast (principal) | CPT/HCPCS: 77063; 77067 ==

== ENCOUNTER 2025-01-21 09:40 | Day surgery (SDC) | payer OTHER, SELFPAY ==
--- NOTE | 2025-01-20 09:38 | HO.ANESPROP2 ---
Documented by User: Annita Mcneal NP 01/20/25 09:41 HPI - Anesthesia Eval Consult details Narrative: 64yo F for Colonoscopy PMFSH Active Problems Active Problems: All Active Problems Pre-op examination (Acute) Sensation of pressure in bladder area (Acute) Urinary incontinence, mixed (Acute) Abnormal anal Papanicolaou smear (Acute) Asthma (Acute) Cough (Acute) Dyspnea on exertion (Acute) Chest pressure (Acute) H/O esophagogastroduodenoscopy (Acute) Family history of polyps in the colon (Acute) History of IBS (Acute) History of diverticulitis (Acute) GERD (gastroesophageal reflux disease) (Acute) Past Medical History Medical History HIV (human immunodeficiency virus infection) Abnormal anal Papanicolaou smear Dyspnea on exertion Essential hypertension Family History Family History Father Stomach cancer Mother Alzheimer disease Type 2 diabetes mellitus Hyperlipidemia Family/Other HTN (hypertension) Sleep apnea Diabetes Maternal Uncle FH: prostate cancer Stomach cancer Alzheimer disease Paternal Uncle Stomach cancer Surgical History Surgical History Hx of colonoscopy Hx of tubal ligation History of carpal tunnel surgery History of back surgery Hx of eye surgery Hx of cholecystectomy Social History Social History Household Members: None Housing: Apartment Are you a primary career services coordinator to a significant other at home: No Do you presently have visiting nurse or other home services: No Alcohol intake: current Alcohol intake frequency: does not drink Patient Tobacco Use Status: Never used Tobacco Use of substances other than those prescribed or required for medical reasons: No Have you been hit, kicked, punched, or otherwise hurt by someone within the past year? If so, by whom?: No Are you DNR?: No Advance Directives: No Advance Directives Information Provided: Yes : No Poor oral hygiene: No service: No Meds Allergies Allergy/AdvReac Type Severity Reaction Status Date / Time Penicillins (PENICILLINS) Allergy Intermediate ITCHING Verified 01/21/25 09:59 sulfamethoxazole (From Allergy Intermediate RASH Verified 01/21/25 09:59 BACTRIM) trimethoprim (From BACTRIM) Allergy Intermediate RASH Verified 01/21/25 09:59 morphine (Morphine) Allergy Mild THROAT Verified 01/21/25 09:59 SWELLING Sulfa (Sulfonamide Allergy Mild RASH/HEADAC Verified 01/21/25 09:59 Antibiotics) HE oxycodone (Percocet) Allergy Unknown redness, Verified 01/21/25 09:59 swelling, itchy Biaxin Allergy Unknown itchy Uncoded 01/21/25 09:59 Home Medications ?Medication ?Instructions ?Recorded ?Confirmed ?Last Taken ?Type fluticasone propionate 230 2 puff inhalation BID PRN Wheezing 01/17/21 01/05/25 Unknown History mcg-salmeterol 21 mcg/actuation HFA inhaler zolpidem 10 mg tablet 10 mg PO BEDTIME PRN Insomnia 01/17/21 01/05/25 Unknown History amlodipine 10 mg tablet 10 mg PO DAILY 05/27/21 01/05/25 01/04/25 History cholecalciferol (vitamin D3) 50 50 mcg PO DAILY 05/27/21 01/05/25 01/04/25 History mcg (2,000 unit) tablet tramadol 50 mg tablet 50 mg PO TID PRN Pain 05/27/21 01/05/25 Unknown History metoprolol succinate 50 mg 50 mg PO DAILY 06/06/23 01/05/25 01/04/25 History tablet,extended release 24 hr bictegravir 50 mg-emtricitabine 1 tab PO BEDTIME 10/16/23 01/05/25 01/03/25 History 200 mg-tenofovir alafenam 25 mg tablet (Biktarvy) rosuvastatin 40 mg tablet 40 mg PO DAILY 06/30/24 01/05/25 01/04/25 History tesamorelin 2 mg subcutaneous 2 mg subcut DAILY 10/23/24 01/05/25 01/04/25 History solution (Egrifta SV) albuterol sulfate 2.5 mg/3 mL 2.5 mg Q6H PRN wheezing 01/05/25 01/05/25 Unknown History (0.083 %) solution for nebulization chlorthalidone 25 mg tablet 25 mg PO DAILY 01/05/25 01/05/25 01/04/25 History loratadine-pseudoephedrine ER 10 1 tab PO DAILY 01/05/25 01/05/25 01/04/25 History mg-240 mg tablet,extended [id number] (Loratadine-D) telmisartan 20 mg tablet 20 mg PO DAILY 01/05/25 01/05/25 01/04/25 History trazodone 50 mg tablet 75 mg PO BEDTIME 01/05/25 01/05/25 01/03/25 History Exam Pertinent Lab Results Pertinent Lab Results: Laboratory Tests 01/04/25 17:37 WBC 6.8 Hgb 13.2 Hct 38.7 Plt Count 201 Sodium 140 Potassium 3.8 Chloride 107 Carbon Dioxide 22 BUN 15 Creatinine 0.90 Narrative Narrative: EKG 12/2024 Vent. Rate : 61 BPM Atrial Rate : 61 BPM P-R Int : 138 ms QRS Dur : 76 ms QT Int : 426 ms P-R-T Axes : 27 6 21 degrees QTcB Int : 428 ms Normal sinus rhythm Normal ECG When compared with ECG of 28-Nov-2022 13:03, Nonspecific T wave abnormality, improved in Anterolateral leads Assessment and Plan Assessment Anesthesia Assessment: Chart Reviewed Documented by User: Mercedes Ha MD 01/21/25 10:22 [facility] Past Medical History Medical History HIV (human immunodeficiency virus infection) Abnormal anal Papanicolaou smear Dyspnea on exertion Essential hypertension Family History Family History Father Stomach cancer Mother Alzheimer disease Type 2 diabetes mellitus Hyperlipidemia Family/Other HTN (hypertension) Sleep apnea Diabetes Maternal Uncle FH: prostate cancer Stomach cancer Alzheimer disease Paternal Uncle Stomach cancer Surgical History Surgical History Hx of colonoscopy Hx of tubal ligation History of carpal tunnel surgery History of back surgery Hx of eye surgery Hx of cholecystectomy History of Problems with Anesthesia: No Social History Social History Household Members: None Housing: Apartment Are you a primary career services coordinator to a significant other at home: No Do you presently have visiting nurse or other home services: No Alcohol intake: current Alcohol intake frequency: does not drink Patient Tobacco Use Status: Never used Tobacco Use of substances other than those prescribed or required for medical reasons: No Have you been hit, kicked, punched, or otherwise hurt by someone within the past year? If so, by whom?: No Are you DNR?: No Advance Directives: No Advance Directives Information Provided: Yes : No Poor oral hygiene: No service: No Meds Allergies Allergy/AdvReac Type Severity Reaction Status Date / Time Penicillins (PENICILLINS) Allergy Intermediate ITCHING Verified 01/21/25 09:59 sulfamethoxazole (From Allergy Intermediate RASH Verified 01/21/25 09:59 BACTRIM) trimethoprim (From BACTRIM) Allergy Intermediate RASH Verified 01/21/25 09:59 morphine (Morphine) Allergy Mild THROAT Verified 01/21/25 09:59 SWELLING Sulfa (Sulfonamide Allergy Mild RASH/HEADAC Verified 01/21/25 09:59 Antibiotics) HE oxycodone (Percocet) Allergy Unknown redness, Verified 01/21/25 09:59 swelling, itchy Biaxin Allergy Unknown itchy Uncoded 01/21/25 09:59 Home Medications ?Medication ?Instructions ?Recorded ?Confirmed ?Last Taken ?Type fluticasone propionate 230 2 puff inhalation BID PRN Wheezing 01/17/21 01/05/25 Unknown History mcg-salmeterol 21 mcg/actuation HFA inhaler zolpidem 10 mg tablet 10 mg PO BEDTIME PRN Insomnia 01/17/21 01/05/25 Unknown History amlodipine 10 mg tablet 10 mg PO DAILY 05/27/21 01/05/25 01/04/25 History cholecalciferol (vitamin D3) 50 50 mcg PO DAILY 05/27/21 01/05/25 01/04/25 History mcg (2,000 unit) tablet tramadol 50 mg tablet 50 mg PO TID PRN Pain 05/27/21 01/05/25 Unknown History metoprolol succinate 50 mg 50 mg PO DAILY 06/06/23 01/05/25 01/04/25 History tablet,extended release 24 hr bictegravir 50 mg-emtricitabine 1 tab PO BEDTIME 10/16/23 01/05/2501/03/25 History 200 mg-tenofovir alafenam 25 mg tablet (Biktarvy) rosuvastatin 40 mg tablet 40 mg PO DAILY 06/30/24 01/05/25 01/04/25 History tesamorelin 2 mg subcutaneous 2 mg subcut DAILY 10/23/24 01/05/25 01/04/25 History solution (Egrifta SV) albuterol sulfate 2.5 mg/3 mL 2.5 mg Q6H PRN wheezing 01/05/25 01/05/25 Unknown History (0.083 %) solution for nebulization chlorthalidone 25 mg tablet 25 mg PO DAILY 01/05/25 01/05/25 01/04/25 History loratadine-pseudoephedrine ER 10 1 tab PO DAILY 01/05/25 01/05/25 01/04/25 History mg-240 mg tablet,extended [id number] (Loratadine-D) telmisartan 20 mg tablet 20 mg PO DAILY 01/05/25 01/05/25 01/04/25 History trazodone 50 mg tablet 75 mg PO BEDTIME 01/05/25 01/05/25 01/03/25 History Exam Airway Mallampati Class: II TM Dist: >3cm Neck ROM: Full Loose/Missing/Broken Teeth: No Heart: RRR Lungs: CTA Assessment and Plan Assessment Anesthesia Assessment: Anesthesia Plan Discussed Final Anesthetic Review History of Problems with Anesthesia: No NPO: Yes ASA Class: II Final Preanesthetic Review: Meds/Allgs Chart Reviewed, Consent Obtained/Reviewed and Anes Risks/Benef Reviewed Patient Risk: Low Procedure Risk: Low Anesthetic Plan Anesthetic Plan: MAC: Disposition: Standard PACU
[2025-01-21 10:00] VITALS: BP 130/69; PULSE 65; RESP 14; TEMP 36.6; O2SAT 98; BMI 32.2
[2025-01-21] MEDS: Lactated Ringers 1,000 ML 100 ML IVCONT (10:15)
--- NOTE | 2025-01-21 10:55 | P.HPSUR_ITS ---
Pre-Procedural Eval Section A - 24 Hr Update-Section A only Date of Service: 01/21/25 Section B - Complete if H&P > 30 days Chief Complaint: Family history of adenomatous and serrated polyps Relevant Family History (Specify if Yes): Yes Relevant Social History: None Present Medications: see Short Stay Collaborative assessment Medical History: Significant History (HIV (human immunodeficiency virus infec tion) Abnormal anal Papanicolaou smear Dyspnea on exertion Essential hypertension) History of Previous Operations: Relevant previous surgery/procedure and date(s) (Hx of colonoscopy Hx of tubal ligation History of carpal tunnel surgery History of back surgery Hx of eye surgery Hx of cholecystectomy) Allergies: Allergies Allergy/AdvReac Type Severity Reaction Status Date / Time Penicillins (PENICILLINS) Allergy Intermediate ITCHING Verified 01/21/25 09:59 sulfamethoxazole (From Allergy Intermediate RASH Verified 01/21/25 09:59 BACTRIM) trimethoprim (From BACTRIM) Allergy Intermediate RASH Verified 01/21/25 09:59 morphine (Morphine) Allergy Mild THROAT Verified 01/21/25 09:59 SWELLING Sulfa (Sulfonamide Allergy Mild RASH/HEADAC Verified 01/21/25 09:59 Antibiotics) HE oxycodone (Percocet) Allergy Unknown redness, Verified 01/21/25 09:59 swelling, itchy Biaxin Allergy Unknown itchy Uncoded 01/21/25 09:59 Review of Systems Sugical H&P ROS: Negative: Constitution, Cardiovascular, Respiratory, Neurologi chuckie, Psychiatric, Hem-Onc, Allergic/Immunologic, Gastrointestinal, Genitourinary, Musculoskeletal, Integumentary, Endocrine and Eyes/Ears/Nose/Throat Exam Surgical H&P Exam: Normal: HEENT, Normal: Heart, Normal: Lungs, Normal: Extremities, Normal: Abdomen, Normal: Skin and Normal: Neurological Plan Diagnosis/Plan: Unchanged I have reviewed the history and physical and performed a pertinent physical examination on my patient. No changes have occurred unless specified. Time Spent With Patient Time: Total time managing care of this patient today ____ minutes.
--- NOTE | 2025-01-21 11:16 | HO.OPN-COLON ---
Colonoscopy Operative Note Operative Note Date of Service: 01/21/25 Narrative: Operative Information Procedure Description: Colonoscopy Indication: screening, FH of polyps Anesthesia: MAC COLONOSCOPY Instrument: Olympus variable stiffness pediatric scope 190L Colonoscopy Monitoring: Vital signs and clinical assessment, continuous EKG monitoring, Pulse oximetry, Carbon Dioxide monitoring and blood pressure monitoring were done throughout the procedure. Colon withdrawal time was 7 minutes. Procedure: The patient was placed in the left lateral decubitis position and pre-procedure medications were administered. After a digital rectal examination of the ano-rectum, the video colonoscope was inserted into the rectum and advanced through the colon to the cecum/TI. The colonoscope was slowly withdrawn in a retrograde panoramic fashion and the colon mucosa was carefully examined including a retroflexed view of the rectum. Findings and interventions are described below. Procedure Difficulty: easy Findings: Terminal Ileum-normal Cecum:normal Ascending Colon: normal Transverse Colon -normal Descending Colon:normal Sigmoid Colon: moderate diverticulosis Rectum: Retroflexion with small internal hemorrhoids seen, grade I Anorectum - normal Intervention: none Colon preparation: [place] Bowel Preparation Scale Right colon; 2 Transverse colon: 2 Left colon; 2 (0 = Unprepared colon segment with mucosa not seen due to solid stool that cannot be cleared. 1 = Portion of mucosa of the colon segment seen, but other areas of the colon segment not well seen due to staining, residual stool and/or opaque liquid. 2 = Minor amount of residual staining, small fragments of stool and/or opaque liquid, but mucosa of colon segment seen well. 3 = Entire mucosa of colon segment seen well with no residual staining, small fragments of stool or opaque liquid) Impression and Post Procedure Diagnosis: diverticulosis internal hemorrhoids Plan: High fiber diet leaflet Avoid straining at stool, epsom salts and sitz bath, anusol supps or cream Repeat Colonoscopy in 5 years due to FH of polyps or earlier if clinically indicated Above findings were reviewed with the patient and relevant handouts were provided if indicated.
[2025-01-21 11:22] VITALS: BP 88/38; PULSE 56; RESP 18; TEMP 36.2; O2SAT 99
[2025-01-21 11:32] VITALS: BP 101/40
[2025-01-21 11:37] VITALS: BP 117/69; PULSE 58; RESP 16; TEMP 36.3; O2SAT 97
== END 2025-01-21 12:18 | disposition home or self-care (01) ==
PROVIDERS: PCP Family Medicine; Visit Provider Internal Medicine Gastroenterology
PROC: 0DJD8ZZ Inspection of Lower Intestinal Tract, Via Natural or Artificial Opening Endoscopic (ICD-10-PCS; CPT 45378; principal; 2025-01-21 12:00)
DX: Z12.11 Encounter for screening for malignant neoplasm of colon (principal); Z83.719 Family history of colon polyps, unspecified; K57.30 Diverticulosis of large intestine without perforation or abscess without bleeding; K64.0 First degree hemorrhoids; Z87.19 Personal history of other diseases of the digestive system; K21.9 Gastro-esophageal reflux disease without esophagitis; I10 Essential (primary) hypertension; R06.09 Other forms of dyspnea; B20 Human immunodeficiency virus [HIV] disease; R85.610 Atypical squamous cells of undetermined significance on cytologic smear of anus (ASC-US); J45.909 Unspecified asthma, uncomplicated; Z79.51 Long term (current) use of inhaled steroids; Z79.899 Other long term (current) drug therapy; Z88.0 Allergy status to penicillin; Z88.2 Allergy status to sulfonamides; Z88.5 Allergy status to narcotic agent; Z90.49 Acquired absence of other specified parts of digestive tract; Z98.51 Tubal ligation status; Z98.890 Other specified postprocedural states
CPT/HCPCS: G0105; J2003; J2704

== ENCOUNTER → 2025-01-21 09:40 | Outpatient (BNV) | payer OTHER, SELFPAY | PROVIDERS: PCP Family Medicine; Visit Provider Internal Medicine Gastroenterology | DX: Z12.11 Encounter for screening for malignant neoplasm of colon (principal); Z83.719 Family history of colon polyps, unspecified; K57.30 Diverticulosis of large intestine without perforation or abscess without bleeding; K64.0 First degree hemorrhoids | CPT/HCPCS: G0105 ==

== ENCOUNTER 2025-01-30 08:41 | Outpatient (AMB) | payer OTHER, SELFPAY ==
--- NOTE | 2025-01-30 08:43 | A.OFFVIS_ITS ---
Vital Signs 01/30/25 09:00 Height 5 ft 3 in Weight 185 lb 3.013 oz BMI 32.8 BP 145/61 H Blood Pressure Location Lt brachial Position Sitting Pulse 68 Intake Visit Reasons: 6m follow up abnormal anal pap Intake Note: Patient states that she had a recent stay in the hospital due to diverticulitis. Arrt Technologist Required: Yes Arrt Technologist Name: DAughter Allergies Penicillins (PENICILLINS) Allergy (Intermediate, Verified 01/30/25 08:45) ITCHING sulfamethoxazole (From BACTRIM) Allergy (Intermediate, Verified 01/30/25 08:45) RASH trimethoprim (From BACTRIM) Allergy (Intermediate, Verified 01/30/25 08:45) RASH morphine (Morphine) Allergy (Mild, Verified 01/30/25 08:45) THROAT SWELLING Sulfa (Sulfonamide Antibiotics) Allergy (Mild, Verified 01/30/25 08:45) RASH/HEADACHE oxycodone (Percocet) Allergy (Unknown, Verified 01/30/25 08:45) redness, swelling, itchy Biaxin Allergy (Unknown, Uncoded 01/30/25 08:45) itchy HPI HPI 6m follow up abnormal anal pap: Details: 64-year-old female here for a follow-up for an abnormal anal Pap. She has known HIV. She says she had a previous excision of an area of abnormality in the anus with an abnormal Pap smear in the past. She she had undergone an anal Pap last year because of her history of HIV and this showed atypical squamous cells of undetermined significance (ASCUS,rare). The mRNA assay did not detect any HPV type 16 or 18. I had actually seen her last January, and did not anoscopy and not find any abnormal mucosa or lining in the anal canal. I had recommended for her to undergo another colonoscopy within 1 year. She denies any bleeding or any problems with her anus. She denies any history of ano-receptive intercourse although she says her HIV was from sexual transmission in the past. [facility] Medical History (Updated 01/30/25 @ 09:57 by Jewel Montelongo MD) Diverticular disease ASCUS of cervix with negative high risk HPV HIV (human immunodeficiency virus infection) Abnormal anal Papanicolaou smear Dyspnea on exertion Essential hypertension Surgical History Hx of colonoscopy Hx of tubal ligation History of carpal tunnel surgery History of back surgery Hx of eye surgery Hx of cholecystectomy Family History Father Stomach cancer Mother Alzheimer disease Type 2 diabetes mellitus Hyperlipidemia Family/Other HTN (hypertension) Sleep apnea Diabetes Maternal Uncle FH: prostate cancer Stomach cancer Alzheimer disease Paternal Uncle Stomach cancer Social History Household Members: None Housing: Apartment Are you a primary healthcare representative to a significant other at home: No Do you presently have visiting nurse or other home services: No Alcohol intake: current Alcohol intake frequency: does not drink Patient Tobacco Use Status: Never used Tobacco service: No Physical Exam Vital Signs: Last Vital Signs Pulse 68 01/30/25 09:00 BP 145/61 H 01/30/25 09:00 BMI result Body Mass Index 32.8 Assessment & Plan Assessment & Plan (1) ASCUS of cervix with negative high risk HPV: Code(s): R87.610 - Atypical squamous cells of undetermined significance on cytologic smear of cervix (ASC-US) Category: Medical Plan: Current anoscopy does not suggest any abnormal lining of the anus he has suggestion of high-grade lesions. She does not have any symptoms either of anal discomfort or bleeding I have recommended for her to he will need to follow up with me for regular colonoscopies. I will see again in a year as she does not have any high-grade lesion. She understands the plan well. Her daughter was with her during the visit. (2) Diverticular disease: Code(s): K57.90 - Diverticulosis of intestine, part unspecified, without perforation or abscess without bleeding Category: Medical Plan: She was admitted for mild diverticulitis last December,. She is feeling much better although her daughter says she still has some mild pain on and off I did explain to her that if she has recurrent episodes or complications with regards to her diverticular disease, she may benefit from resection. She seems to understand this and she can follow up in this regard in the office as well on a PRN basis. She had colonoscopy with Dr. Smith 01/21/2025 showing moderate diverticulosis of the sigmoid colon without inflammation. Coding Level of Care Code Est Pt Level 3 (00729) Diagnoses ASCUS of cervix with negative high risk HPV R87.610 Diverticular disease K57.07
[2025-01-30 09:00] VITALS: BP 145/61; PULSE 68; BMI 32.8
== END 2025-01-30 09:14 | disposition home or self-care (01) ==
LOC: HO.HGS 08:42
PROVIDERS: PCP Family Medicine; Visit Provider Surgery
DX: R87.610 Atypical squamous cells of undetermined significance on cytologic smear of cervix (ASC-US) (principal); K57.90 Diverticulosis of intestine, part unspecified, without perforation or abscess without bleeding
CPT/HCPCS: 99213

== ENCOUNTER → 2025-01-30 08:41 | Outpatient (BNVA) | payer OTHER, SELFPAY | PROVIDERS: PCP Family Medicine; Visit Provider Surgery | DX: R87.610 Atypical squamous cells of undetermined significance on cytologic smear of cervix (ASC-US) (principal); K57.90 Diverticulosis of intestine, part unspecified, without perforation or abscess without bleeding | CPT/HCPCS: 99212 ==

== ENCOUNTER 2025-02-02 09:38 | Outpatient (AMB) | payer OTHER, SELFPAY ==
--- NOTE | 2025-02-02 10:30 | A.OFFVIS_ITS ---
Intake Visit Reasons: cysto Intake Note: Patient presents to office today for cystoscopy Urology Medications:none Blood Thinner: none Antibiotic Allergy: Penicillins, Sulfa,Trimethoprim Lot #: [id number] Exp: 10/16/27 Ep Technologist Required: Yes Ep Technologist Name: [email or web address] [id number] Accompanied by: Self / Same As Patient Allergies Penicillins (PENICILLINS) Allergy (Intermediate, Verified 02/02/25 10:33) ITCHING sulfamethoxazole (From BACTRIM) Allergy (Intermediate, Verified 02/02/25 10:33) RASH trimethoprim (From BACTRIM) Allergy (Intermediate, Verified 02/02/25 10:33) RASH morphine (Morphine) Allergy (Mild, Verified 02/02/25 10:33) THROAT SWELLING Sulfa (Sulfonamide Antibiotics) Allergy (Mild, Verified 02/02/25 10:33) RASH/HEADACHE oxycodone (Percocet) Allergy (Unknown, Verified 02/02/25 10:33) redness, swelling, itchy Biaxin Allergy (Unknown, Uncoded 01/30/25 08:45) itchy Medication List - Last Reconciled 02/02/25 by Marisa Harman MD albuterol sulfate 2.5 mg Q6H PRN amlodipine 10 mg PO DAILY atorvastatin (Lipitor) 10 mg PO DAILY [id number] ala 50-200-25 mg (Biktarvy) 1 tab PO BEDTIME chlorthalidone 25 mg PO DAILY cholecalciferol (vitamin D3) 50 mcg PO DAILY estradiol 0.01%(0.1mg/gram) 2 grams vaginal QAM fluticasone propion-salmeterol 230-21 mcg/actuation 2 puffs inhalation BID PRN hydroxyzine pamoate 25 mg PO TID ipratropium-albuterol 0.5 mg-3 mg(2.5 mg base)/3 mL 3 mL inhalation Q4-6H PRN 30 days ketorolac 10 mg PO Q8H 3 days loratadine-pseudoephedrine 10-240 mg ER (Loratadine-D) 1 tab PO DAILY metoprolol succinate ER 50 mg PO DAILY mirabegron ER (Myrbetriq) 50 mg PO DAILY naloxone 4 mg/actuation intranasal omeprazole 40 mg PO DAILY@0630 PRN telmisartan 20 mg PO DAILY tesamorelin (Egrifta SV) 2 mg subcut DAILY tramadol 50 mg PO TID PRN trazodone 75 mg PO BEDTIME zolpidem 10 mg PO BEDTIME PRN HPI Comments Details: 02/02/25--Here for cystoscopy. states she is still has strong urgency and urge incontinence. Office cystoscopy - mild to moderate trabeculations. Failed PO anticholinergics. Plan - Botox 100 units. 12/19/24--Melissa is here for urodynamics. The patient has complaints of urinary incontinence. h/o prior bladder suspension Interpretation: During the filling phase there was normal sensation, sensory urgency was noted, strong desire was noted at 234 mL. Bladder capacity was less than average. Leakage was observed during cough. Findings suggestive of mixed stress and urge, less than average functional bladder capacity, detrusor overactivity. EMG- Appropriate changes in the waveforms were noted through out the study. Will focus on urge symptoms first, patient may benefit from therapies focuses on support of bladder neck/proximal urethra in the future. Nilda JARVIS for office cystoscopy. 09/29/24--Melissa is a very pleasant 63-year-old Azeri-speaking female patient of Dr. Young. She has a past medical history of hypertension. She presents to the office today as a new patient for ongoing lower urinary tract symptoms she has been experiencing. In discussion with the patient today she reports previously following up with Dr. Evon Burnett at [facility] over 3 years ago at which time she had what sounds like a bladder suspension. She reports she had been doing well up until 2-3 months ago when she started experiencing issues with mixed urinary incontinence. She reports feeling at times bladder pressure as well as the need to lean forward when urinating to empty her bladder. In office urinalysis results reviewed with the patient today. PVR 0 mL. We discussed signing medical release form to obtain previous records for continuity of care. She reports having trialed trialed medications in the past however does not recall their names however does remember trialing tolterodine with no improvement. We discussed at length potential causes of lower urinary tract symptoms patient was experiencing as well as further treatment options and risks and benefits of these treatment options. She denies foul smelling urine, changes to urinary stream, flank pain, fever, and or chills. We discussed obtaining retroperitoneal ultrasound for further assessment evaluation. [facility] Medical History Diverticular disease ASCUS of cervix with negative high risk HPV HIV (human immunodeficiency virus infection) Abnormal anal Papanicolaou smear Dyspnea on exertion Essential hypertension Surgical History Hx of colonoscopy Hx of tubal ligation History of carpal tunnel surgery History of back surgery Hx of eye surgery Hx of cholecystectomy Family History Father Stomach cancer Mother Alzheimer disease Type 2 diabetes mellitus Hyperlipidemia Family/Other HTN (hypertension) Sleep apnea Diabetes Maternal Uncle FH: prostate cancer Stomach cancer Alzheimer disease Paternal Uncle Stomach cancer Social History Household Members: None Housing: Apartment Are you a primary childcare administrator to a significant other at home: No Do you presently have visiting nurse or other home services: No Alcohol intake: current Alcohol intake frequency: does not drink Patient Tobacco Use Status: Never used Tobacco service: No Office Procedures Cystoscopy Consent Discussed risk and benefit or proposed procedure with the patient. Information consent for procedure given to the patient. Discussed technical aspects, risks, benefits and alternatives in full. Addressed all of the patient's questions and concerns regarding the procedure. The patient demonstrated knowledge and understanding. They wish to proceed with this procedure. Preparation The patient was prepped in the usual manner. A [employer] certified network professional was present and in the room. Genitalia was prepped with betadine solution in a sterile manner. Lidocaine Jelly 2% was placed into the urethra and 16Fr flexible Olympus cystoscope was inserted into the meatus after adequate lubrication. Procedure Time out per protocol performed. Speculum used as indicated for adequate visualization of urethra, the flexible cystoscope is passed transurethrally: The bladder was inspected in its entirety with utilization retroflexion displaying: Tumor(s): no suspicious bladder lesions visualized Trabeculation: Mild to Moderatei Mucosal Erthema: Orifices: normal shape and position Urethra: normal Cystoscopy findings: Bladder wall thickening, no suspicious bladder lesions visualized [id number] DISPOSABLE SCOPE URO-G FLEXIBLE SCOPE Procedure code (CPT) selection complete Office Meds lidocaine HCl 2 % mucosal jelly in applicator Performing Provider: Marisa Harman MD Performing Location: [facility] Administered by: Mattie Bauer RN on 02/02/25 10:45 Dose Route Admin Location Dispensed Lot Number Expiration Date NDC 3Rd Grade Reading Teacher 10 mL intra-urethral 20 mL nitrofurantoin monohydrate/macrocrystals 100 mg capsule Performing Provider: Marisa Harman MD Performing Location: [facility] Administered by: Mattie Bauer RN on 02/02/25 10:45 Dose Route Admin Location Dispensed Lot Number Expiration Date NDC 3Rd Grade Reading Teacher 100 mg PO 1 cap phenazopyridine 200 mg tablet Performing Provider: Marisa Harman MD Performing Location: [facility] Administered by: Mattie Bauer RN on 02/02/25 10:45 Dose Route Admin Location Dispensed Lot Number Expiration Date NDC 3Rd Grade Reading Teacher 200 mg PO 1 tab Results AMB Urinalysis, Automated UA Leukoctes 0 Sunny/uL Last Edit by Emelyn Ortiz on 02/02/25 14:33 UA Nitrite Negative Last Edit by Emelyn Ortiz on 02/02/25 14:33 UA Urobilinogen 3.5 mg/dL Last Edit by Emelyn Ortiz on 02/02/25 14:33 UA Protein 1 mg/dL Last Edit by Emelyn Ortiz on 02/02/25 14:33 UA pH 5.5 Last Edit by Emelyn Ortiz on 02/02/25 14:33 UA Blood 0 Jackson/uL Last Edit by Emelyn Ortiz on 02/02/25 14:33 UA Specific [place] 1.020 Last Edit by Emelyn Ortiz on 02/02/25 14:33 UA Ketone Negative Last Edit by Emelyn Ortiz on 02/02/25 14:33 UA Bilirubin 0 mg/dL Last Edit by Emelyn Ortiz on 02/02/25 14:33 UA Glucose 0 mg/dL Last Edit by Emelyn Ortiz on 02/02/25 14:33 Results Reviewed Results Reviewed: Laboratory Last Values Urine pH (Auto) 5.5 02/02/25 13:43 Specific [place] (Auto) 1.020 02/02/25 13:43 Urine Protein (Auto) 1 mg/dL 02/02/25 13:43 Glucose (UA)(Auto) 0 mg/dL 02/02/25 13:43 Urine Ketones (Auto) Negative 02/02/25 13:43 Urine Blood (Auto) 0 Jackson/uL 02/02/25 13:43 Urine Nitrite (Auto) Negative 02/02/25 13:43 Urine Bilirubin (Auto) 0 mg/dL 02/02/25 13:43 Urine Urobilinogen (Auto) 3.5 mg/dL 02/02/25 13:43 Leukocyte Esterase (Auto) 0 Sunny/uL 02/02/25 13:43 Assessment & Plan Assessment & Plan (1) 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 Plan - Botox 100 units. Orders: Orders AMB Urinalysis Automated 02/02/25 Z13.9 - Encounter for screening, unspecified AMB Cystoscopy 02/02/25 N39.46 - Mixed incontinence, R39.89 - Other symptoms and signs involving the genitourinary system, N32.81 - Overactive bladder Patient Instructions: The patient had an opportunity to ask questions regarding treatment plan. The p atient expressed understanding and agreement with the above treatment plan. The patient is aware they should contact our office by phone for worsening of their current condition or the appearance of new symptoms. Compliance is encouraged with any medications and followup testing that is ordered. It is a privilege to be allowed the opportunity to participate in the urologic care of your patient. If you have any questions or concerns regarding treatment for the above conditions please do not hesitate to contact me. The office telephone contact is [phone]. This note is constructed in part using voice recognition software. While every effort has been made to ensure accuracy sign wirer errors may have been included. Yours sincerely, Marisa Harman MD Coding Level of Care Code Est Pt Level 3 (56348) Diagnoses Detrusor overactivity N32.81 OAB (overactive bladder) N32.81 CPT Codes Cystoscopy - CPT: [id number] ([id number])
== END 2025-02-02 11:29 | disposition home or self-care (01) ==
LOC: HO.HUSH 09:39
PROVIDERS: PCP Family Medicine; Visit Provider Urology
DX: N39.46 Mixed incontinence (principal); R39.89 Other symptoms and signs involving the genitourinary system; N32.81 Overactive bladder; Z13.9 Encounter for screening, unspecified
CPT/HCPCS: 52000; 99213

== ENCOUNTER → 2025-02-02 09:38 | Outpatient (BNVA) | payer OTHER, SELFPAY | PROVIDERS: PCP Family Medicine; Visit Provider Urology | DX: N39.46 Mixed incontinence (principal); N32.81 Overactive bladder; R39.89 Other symptoms and signs involving the genitourinary system | CPT/HCPCS: 52000; 81003; 99212 ==

== ENCOUNTER 2025-04-09 13:19 | Outpatient (REF) | payer OTHER, SELFPAY ==
[2025-04-09 16:12] LABS: MANUAL DIFF FLAG NO
[2025-04-09 16:22] LABS: Hematocrit 34.0 % (37.0-47.0); Hemoglobin 11.9 g/dl (12.0-16.0); Imm Gran Abs Auto 0.02 X10*3/uL (0.00-0.03); Imm Gran Pct Auto 0.3 % (0.0-0.4); Lymphocytes Absolute Auto 1.5 X10*3/uL (1.2-4.9); Mean Corpuscular HGB Conc 35.0 g/dl (31.0-35.0); Mean Corpuscular Hemoglobin 31.7 pg (27.0-33.0); Mean Corpuscular Volume 90.7 fL (80.0-98.0); NRBC Abs Auto 0.000 X10*3/uL (0.0-0.012); NRBC Pct Auto 0.0 /100WBC (0.0-0.2); Platelet Count 204 X10*3/uL (160-400); Red Blood Count 3.75 X10*6/uL (4.20-5.50); White Blood Count 5.9 X10*3/uL (4.8-10.8)
[2025-04-09 16:35] LABS: Alanine Aminotransferase 10 U/L (0-31); Albumin Level 4.0 g/dL (3.5-5.0); Alkaline Phosphatase 60 U/L (39-117); Anion Gap 10 (12-20); Aspartate Amino Transferase 18 U/L (5-31); Blood Urea Nitrogen 13 mg/dL (9-16); Calcium 9.0 mg/dL (8.4-10.2); Carbon Dioxide 29 mmol/L (22-29); Chloride 107 mmol/L (96-108); Cholesterol 155 mg/dL (<200); Estimated Glomerular Filt Rate 42; HDL Cholesterol 33 mg/dL (>40); Potassium 3.8 mmol/L (3.3-5.1); Sodium 142 mmol/L (135-145); Total Protein 7.1 g/dL (6.5-8.0); Triglycerides 129 mg/dL (<150)
[2025-04-09 16:57] LABS: Reflex LDLD? No
[2025-04-10 09:22] LABS: HBS Num1 274.31 mIU/mL (0-7.99); HBc Num1 4.60 S/CO (0.00-0.79); ~HepC Num1 0.56 S/CO (0.00-0.79); ~Hepatitis B Surface Antibody REACTIVE (Nonreactive); ~Hepatitis C Antibody Nonreactive (Nonreactive)
[2025-04-10 11:44] LABS: Iron 89 mcg/dL (30-160); Percent Iron Saturation 43 % (15-50); Total Iron Binding Capacity 206 mcg/dL (228-428); Unsaturated Iron Binding 117 ug/dL
[2025-04-10 11:53] LABS: Ferritin 231 ng/mL (10-250)
[2025-04-10 12:06] LABS: HBc Num2 4.42 S/CO; HBc Num3 4.47 S/CO
[2025-04-10 15:33] LABS: HIV RNA PCR Qn Copies NOT DETECTED copies/mL (NOT DETECTED); HIV RNA PCR Qn Log Copies NOT DETECTED (NOT DETECTED)
[2025-04-11 07:19] LABS: Hepatitis B Surface Ab Qnt 189 mIU/mL (> OR = 10)
[2025-04-14 03:08] LABS: TS Negative Control Passed; TS Panel A 0; TS Panel B 0; TS Positive Control Passed; TSpotTB Negative (Negative)
[2025-04-14 12:48] LABS: IGF-1 (Somatomedin C) 55 ng/mL (41-279); IGF-1 Z Score (Female) -1.6 SD (-2.0 - +2.0)
[2025-04-15 15:58] LABS: Absolute CD3 Count 1015 cells/uL (840-3060); Absolute CD8 Count 651 cells/uL (180-1170); Percent CD3 Cells 81 % (57-85); Percent CD8 Cells 52 % (12-42)
== END 2025-04-09 13:20 | disposition home or self-care (01) ==
LOC: HO.HHCL 13:19
PROVIDERS: PCP Family Medicine; Referring Provider Family Medicine; Visit Provider Student in an Organized Health Care Education/Training Program
DX: Z21 Asymptomatic human immunodeficiency virus [HIV] infection status (principal); Z13.6 Encounter for screening for cardiovascular disorders; Z11.1 Encounter for screening for respiratory tuberculosis
CPT/HCPCS: 36415; 80053; 80061; 82248; 82728; 83540; 84305; 85025; 86317; 86359; 86360; 86481; 86592; 86704; 86706; 86803; 87536

== ENCOUNTER 2025-04-28 05:32 | Day surgery (SDC) | payer OTHER, SELFPAY ==
[2025-04-24 09:12] VITALS: BMI 32.0
[2025-04-28 05:57] VITALS: BMI 32.1
[2025-04-28 06:09] VITALS: BP 112/54; PULSE 64; RESP 16; TEMP 36.3; O2SAT 97; BMI 32.1
[2025-04-28] MEDS: Lactated Ringers 1,000 ML 100 ML IVCONT (06:17)
[2025-04-28 06:26] LABS: Glucose, Whole Blood 117 mg/dL (60-115)
--- NOTE | 2025-04-28 07:22 | MHC.SHP ---
Pre-Procedural Eval Section A - 24 Hr Update-Section A only Date of Service: 04/28/25 The patient is an INPATIENT: No The patient has been examined within 24 hours of the surgical procedure. The History & Physical has been completed within 30 days and I have reviewed it.: Yes Section B - Complete if H&P > 30 days Chief Complaint: Overactive bladder Allergies: Allergies Allergy/AdvReac Type Severity Reaction Status Date / Time Penicillins (PENICILLINS) Allergy Intermediate ITCHING Verified 04/28/25 06:00 sulfamethoxazole (From Allergy Intermediate RASH Verified 04/28/25 06:00 BACTRIM) trimethoprim (From BACTRIM) Allergy Intermediate RASH Verified 04/28/25 06:00 morphine (Morphine) Allergy Mild THROAT Verified 04/28/25 06:00 SWELLING Sulfa (Sulfonamide Allergy Mild RASH/HEADAC Verified 04/28/25 06:00 Antibiotics) HE oxycodone (Percocet) Allergy Unknown redness, Verified 04/28/25 06:00 swelling, itchy Biaxin Allergy Unknown itchy Uncoded 04/28/25 06:00 Plan Diagnosis/Plan: Unchanged I have reviewed the history and physical and performed a pertinent physical examination on my patient. No changes have occurred unless specified. Cystoscopy Bladder botox injection. I have discussed risks to include hematuria, UTI, urinary retention, need to repeat procedure for sustained efficacy. Time Spent With Patient Time: Total time managing care of this patient today ____ minutes.
--- NOTE | 2025-04-28 07:23 | HO.ANESPROP2 ---
Documented by User: Rae Bolaños NP 04/24/25 11:39 HPI - Anesthesia Eval Consult details Narrative: 64 yr old female for Cystoscopy Bladder Botox Injection HIV: on Biktarvy GERD: on PPI Asthma: prn ICS/LABA & RAMYA PMFSH Active Problems Active Problems: All Active Problems KATHY (stress urinary incontinence, female) (Acute) OAB (overactive bladder) (Acute) Detrusor overactivity (Acute) Pre-op examination (Acute) Sensation of pressure in bladder area (Acute) Urinary incontinence, mixed (Acute) Asthma (Acute) Cough (Acute) Chest pressure (Acute) H/O esophagogastroduodenoscopy (Acute) Family history of polyps in the colon (Acute) History of IBS (Acute) History of diverticulitis (Acute) GERD (gastroesophageal reflux disease) (Acute) Diverticular disease (Acute) ASCUS of cervix with negative high risk HPV (Acute) Abnormal anal Papanicolaou smear (Acute) Dyspnea on exertion (Acute) Past Medical History Medical History Diabetes Diverticular disease ASCUS of cervix with negative high risk HPV HIV (human immunodeficiency virus infection) Abnormal anal Papanicolaou smear Dyspnea on exertion Essential hypertension Family History Family History Father Stomach cancer Mother Alzheimer disease Type 2 diabetes mellitus Hyperlipidemia Family/Other HTN (hypertension) Sleep apnea Diabetes Maternal Uncle FH: prostate cancer Stomach cancer Alzheimer disease Paternal Uncle Stomach cancer Surgical History Surgical History Hx of colonoscopy Hx of tubal ligation History of carpal tunnel surgery History of back surgery Hx of eye surgery Hx of cholecystectomy History of Problems with Anesthesia: No Social History Social History Household Members: None Housing: Apartment Are you a primary medicare specialist to a significant other at home: No Do you presently have visiting nurse or other home services: No Alcohol intake: current Alcohol intake frequency: does not drink Patient Tobacco Use Status: Never used Tobacco Have you been hit, kicked, punched, or otherwise hurt by someone within the past year? If so, by whom?: No Are you DNR?: No Advance Directives: No Advance Directives Information Provided: Yes Patient : No (hx tubal ligation) service: No Meds Allergies Allergy/AdvReac Type Severity Reaction Status Date / Time Penicillins (PENICILLINS) Allergy Intermediate ITCHING Verified 04/28/25 06:00 sulfamethoxazole (From Allergy Intermediate RASH Verified 04/28/25 06:00 BACTRIM) trimethoprim (From BACTRIM) Allergy Intermediate RASH Verified 04/28/25 06:00 morphine (Morphine) Allergy Mild THROAT Verified 04/28/25 06:00 SWELLING Sulfa (Sulfonamide Allergy Mild RASH/HEADAC Verified 04/28/25 06:00 Antibiotics) HE oxycodone (Percocet) Allergy Unknown redness, Verified 04/28/25 06:00 swelling, itchy Biaxin Allergy Unknown itchy Uncoded 04/28/25 06:00 Home Medications ?Medication ?Instructions ?Recorded ?Confirmed ?Last Taken ?Type fluticasone propionate 230 2 puff inhalation BID PRN Wheezing 01/17/21 02/02/25 Unknown History mcg-salmeterol 21 mcg/actuation HFA inhaler zolpidem 10 mg tablet 10 mg PO BEDTIME PRN Insomnia 01/17/21 02/02/25 Unknown History amlodipine 10 mg tablet 10 mg PO DAILY 05/27/21 04/28/25 04/28/25 05:00 History cholecalciferol (vitamin D3) 50 50 mcg PO DAILY 05/27/21 02/02/25 01/04/25 History mcg (2,000 unit) tablet tramadol 50 mg tablet 50 mg PO TID PRN Pain 05/27/21 02/02/25 Unknown History metoprolol succinate 50 mg 50 mg PO DAILY 06/06/23 04/28/25 04/28/25 05:00 History tablet,extended release 24 hr bictegravir 50 mg-emtricitabine 1 tab PO BEDTIME 10/16/23 02/02/25 01/03/25 History 200 mg-tenofovir alafenam 25 mg tablet (Biktarvy) tesamorelin 2 mg subcutaneous 2 mg subcut DAILY 10/23/24 02/02/25 01/04/25 History solution (Egrifta SV) albuterol sulfate 2.5 mg/3 mL 2.5 mg Q6H PRN wheezing 01/05/25 02/02/25 Unknown History (0.083 %) solution for nebulization chlorthalidone 25 mg tablet 25 mg PO DAILY 01/05/25 02/02/25 01/04/25 History loratadine-pseudoephedrine ER 10 1 tab PO DAILY 01/05/25 02/02/25 01/04/25 History mg-240 mg tablet,extended [id number] (Loratadine-D) telmisartan 20 mg tablet 20 mg PO DAILY 01/05/25 02/02/25 01/04/25 History trazodone 50 mg tablet 75 mg PO BEDTIME 01/05/25 02/02/25 01/03/25 History estradiol 0.01% (0.1 mg/gram) 2 g vaginal QAM 01/30/25 02/02/25 Unknown History vaginal cream hydroxyzine pamoate 25 mg capsule 25 mg PO TID 01/30/25 02/02/25 Unknown History naloxone 4 mg/actuation nasal spray intranasal 01/30/25 02/02/25 Unknown History omeprazole 40 mg capsule,delayed 40 mg PO DAILY@0630 PRN gerd 01/30/25 02/02/25 Unknown History release Exam Height,Weight and Vital Signs: Height 5 ft 3 in Weight 82 kg Assessment and Plan Final Anesthetic Review History of Problems with Anesthesia: No Documented by User: Samaria Ni DO 04/28/25 07:25 [facility] Past Medical History Medical History Diabetes Diverticular disease ASCUS of cervix with negative high risk HPV HIV (human immunodeficiency virus infection) Abnormal anal Papanicolaou smear Dyspnea on exertion Essential hypertension Family History Family History Father Stomach cancer Mother Alzheimer disease Type 2 diabetes mellitus Hyperlipidemia Family/Other HTN (hypertension) Sleep apnea Diabetes Maternal Uncle FH: prostate cancer Stomach cancer Alzheimer disease Paternal Uncle Stomach cancer Family history of problems with anesthesia: No Surgical History Surgical History Hx of colonoscopy Hx of tubal ligation History of carpal tunnel surgery History of back surgery Hx of eye surgery Hx of cholecystectomy History of Problems with Anesthesia: No Social History Social History Household Members: None Housing: Apartment Are you a primary medicare specialist to a significant other at home: No Do you presently have visiting nurse or other home services: No Alcohol intake: current Alcohol intake frequency: does not drink Patient Tobacco Use Status: Never used Tobacco Have you been hit, kicked, punched, or otherwise hurt by someone within the past year? If so, by whom?: No Are you DNR?: No Advance Directives: No Advance Directives Information Provided: Yes Patient : No (hx tubal ligation) service: No Meds Allergies Allergy/AdvReac Type Severity Reaction Status Date / Time Penicillins (PENICILLINS) Allergy Intermediate ITCHING Verified 04/28/25 06:00 sulfamethoxazole (From Allergy Intermediate RASH Verified 04/28/25 06:00 BACTRIM) trimethoprim (From BACTRIM) Allergy Intermediate RASH Verified 04/28/25 06:00 morphine (Morphine) Allergy Mild THROAT Verified 04/28/25 06:00 SWELLING Sulfa (Sulfonamide Allergy Mild RASH/HEADAC Verified 04/28/25 06:00 Antibiotics) HE oxycodone (Percocet) Allergy Unknown redness, Verified 04/28/25 06:00 swelling, itchy Biaxin Allergy Unknown itchy Uncoded 04/28/25 06:00 Home Medications ?Medication ?Instructions ?Recorded ?Confirmed ?Last Taken ?Type fluticasone propionate 230 2 puff inhalation BID PRN Wheezing 01/17/21 02/02/25 Unknown History mcg-salmeterol 21 mcg/actuation HFA inhaler zolpidem 10 mg tablet 10 mg PO BEDTIME PRN Insomnia 01/17/21 02/02/25 Unknown History amlodipine 10 mg tablet 10 mg PO DAILY 05/27/21 04/28/25 04/28/25 05:00 History cholecalciferol (vitamin D3) 50 50 mcg PO DAILY 05/27/21 02/02/25 01/04/25 History mcg (2,000 unit) tablet tramadol 50 mg tablet 50 mg PO TID PRN Pain 05/27/21 02/02/25 Unknown History metoprolol succinate 50 mg 50 mg PO DAILY 06/06/23 04/28/25 04/28/25 05:00 History tablet,extended release 24 hr bictegravir 50 mg-emtricitabine 1 tab PO BEDTIME 10/16/23 02/02/25 01/03/25 History 200 mg-tenofovir alafenam 25 mg tablet (Biktarvy) tesamorelin 2 mg subcutaneous 2 mg subcut DAILY 10/23/24 02/02/25 01/04/25 History solution (Egrifta SV) albuterol sulfate 2.5 mg/3 mL 2.5 mg Q6H PRN wheezing 01/05/25 02/02/25 Unknown History (0.083 %) solution for nebulization chlorthalidone 25 mg tablet 25 mg PO DAILY 01/05/25 02/02/25 01/04/25 History loratadine-pseudoephedrine ER 10 1 tab PO DAILY 01/05/25 02/02/25 01/04/25 History mg-240 mg tablet,extended [id number] (Loratadine-D) telmisartan 20 mg tablet 20 mg PO DAILY 01/05/25 02/02/25 01/04/25 History trazodone 50 mg tablet 75 mg PO BEDTIME 01/05/25 02/02/25 01/03/25 History estradiol 0.01% (0.1 mg/gram) 2 g vaginal QAM 01/30/25 02/02/25 Unknown History vaginal cream hydroxyzine pamoate 25 mg capsule 25 mg PO TID 01/30/25 02/02/25 Unknown History naloxone 4 mg/actuation nasal spray intranasal 01/30/25 02/02/25 Unknown History omeprazole 40 mg capsule,delayed 40 mg PO DAILY@0630 PRN gerd 01/30/25 02/02/25 Unknown History release Exam Exam Date and Time: 04/28/25 0715 Height,Weight and Vital Signs: Height 5 ft 3 in Weight 82 kg Vital Signs Temperature 97.3 F 04/28/25 06:09 Pulse Rate 64 04/28/25 06:09 Respiratory Rate 16 04/28/25 06:09 Blood Pressure 112/54 L 04/28/25 06:09 Pulse Oximetry 97 04/28/25 06:09 Oxygen Delivery Method Room Air 04/28/25 06:09 Temperature 97.3 F 04/28/25 06:09 Pulse Rate 64 04/28/25 06:09 Respiratory Rate 16 04/28/25 06:09 Blood Pressure 112/54 L 04/28/25 06:09 Pulse Oximetry 97 04/28/25 06:09 Oxygen Delivery Method Room Air 04/28/25 06:09 Airway Mallampati Class: II TM Dist: >3cm Neck ROM: Full Loose/Missing/Broken Teeth: Yes (several missing teeth but no loose or broken teeth) Heart: S1S2 Lungs: CTAB Assessment and Plan Assessment Anesthesia Assessment: Anesthesia Plan Discussed and Chart Reviewed Final Anesthetic Review Family History of Problems with Anesthesia: No History of Problems with Anesthesia: No NPO: Yes ASA Class: III Final Preanesthetic Review: No Changes in Pt Med Stat, Meds/Allgs Chart Reviewed, Consent Obtained/Reviewed (aerial photograph interpreter at bedside for translation) and Anes Risks/Benef Reviewed Patient Risk: Intermediate Procedure Risk: Low Anesthetic Plan Anesthetic Plan: MAC: and Agree w/ Assess. and Plan Disposition: Standard PACU
--- NOTE | 2025-04-28 07:23 | P.OP_ITS ---
Operative Note Operative Note Date of Service: 04/28/25 Narrative: PREOP DIAGNOSIS: Overactive Bladder, OAB POSTOP DIAGNOSIS: OAB PROCEDURE: CYSTOSCOPY, BLADDER BOTOX INJECTION 100 UNITS SURGEON: Marisa Harman MD ANESTHESIA: MAC Details of procedure: The patient was brought into the operating room placed on the OR table in supine position. Antibiotics confirmed. General anesthesia was administered. The patient was repositioned into lithotomy position, prepped and draped in the usual sterile fashion. Time-out was done per protocol. A 22 fr cystoscope was placed transurethrally into the bladder. Urine was sent for culture. The right and left ureteral orifices were visualized. There were mild to moderate trabeculations noted. There were no suspicious bladder lesions seen. The Botox 100 units was mixed with 10 cc of normal saline and transurethral injections were placed into the posterior wall of the bladder. 0.5cc placed at each injection site. Injections were placed in a grid 5 across and 4 longitudinally. Injections were placed from the inferior to superior position. 2% lidocaine urojet was passed transurethrally into the bladder. The patient was brought out of anesthesia and taken to recovery in stable condi tion. Complications: None EBL: minimal (<5 mL) Drains: none
[2025-04-28 08:13] VITALS: BP 120/48; PULSE 72; RESP 16; TEMP 36.2; O2SAT 95
[2025-04-28 08:28] VITALS: BP 97/45; PULSE 57; RESP 16; O2SAT 95
[2025-04-28 08:43] VITALS: BP 118/56; PULSE 54; RESP 16; O2SAT 95
[2025-04-28 08:58] VITALS: BP 134/62; PULSE 56; RESP 16; TEMP 36.1; O2SAT 98
== END 2025-04-28 09:53 | disposition home or self-care (01) ==
PROVIDERS: PCP Family Medicine; Visit Provider Urology
PROC: 3E0K8GC Introduction of Other Therapeutic Substance into Genitourinary Tract, Via Natural or Artificial Opening Endoscopic (ICD-10-PCS; CPT 52287; principal; 2025-04-28 07:30)
DX: N32.81 Overactive bladder (principal); N39.46 Mixed incontinence; N32.89 Other specified disorders of bladder; B20 Human immunodeficiency virus [HIV] disease; I10 Essential (primary) hypertension; K57.30 Diverticulosis of large intestine without perforation or abscess without bleeding; R06.09 Other forms of dyspnea; Z79.51 Long term (current) use of inhaled steroids; Z79.899 Other long term (current) drug therapy; Z88.0 Allergy status to penicillin; Z88.2 Allergy status to sulfonamides; Z88.5 Allergy status to narcotic agent; Z98.890 Other specified postprocedural states
CPT/HCPCS: 52287; 82947; 87086; J0585; J1100; J1956; J2003; J2250; J2405; J2704; J3010

== ENCOUNTER → 2025-04-28 05:32 | Outpatient (BNV) | payer OTHER, SELFPAY | PROVIDERS: PCP Family Medicine; Visit Provider Urology | DX: N32.81 Overactive bladder (principal) | CPT/HCPCS: 52287 ==

== ENCOUNTER 2025-05-11 13:18 | Outpatient (AMB) | payer OTHER, SELFPAY ==
--- NOTE | 2025-05-11 13:56 | AM.OFFVISNUR ---
Intake Visit Reasons: PVR (Botox) Allergies Penicillins (PENICILLINS) Allergy (Intermediate, Verified 04/28/25 06:00) ITCHING sulfamethoxazole (From BACTRIM) Allergy (Intermediate, Verified 04/28/25 06:00) RASH trimethoprim (From BACTRIM) Allergy (Intermediate, Verified 04/28/25 06:00) RASH morphine (Morphine) Allergy (Mild, Verified 04/28/25 06:00) THROAT SWELLING Sulfa (Sulfonamide Antibiotics) Allergy (Mild, Verified 04/28/25 06:00) RASH/HEADACHE oxycodone (Percocet) Allergy (Unknown, Verified 04/28/25 06:00) redness, swelling, itchy Biaxin Allergy (Unknown, Uncoded 04/28/25 06:00) itchy Office Procedures Post Void Residual Post Residual Void Details: Patient presents to the office today for a PVR check s/p bladder botox approx [address] Francois. window cutter #[id number] via Ipad utilized for the whole visit. Patient reports since the botox she has been experiencing a harder time getting herself to void. States she has to push harder to get her stream going and feels pressure at times. Patient voided small amount on arrival. PVR scan was 78ml. Patient states she has had intermittent pain and burning when she urinates and notices a stronger urine odor than usual. Decision to obtain a sterile sample via straight cath so we could dip her urine in the office. Sterile sample obtained via 14Fr straight cath. Obtained approx 60mls total. Urine appears clear yellow. Urine dipped and did not show any signs of infection. Educated patient that she does not have an infection and is not retaining. Educated her on double voiding. Advised her she should call the office if she develops worsening symptoms like severe pain or pressure. Patient will f/u in [address] Francois. Post Void Residual (PVR): 78 [id number] Void Residual by ultrasound Assessment & Plan Assessment & Plan Orders: Orders AMB Post Void Residual by ultrasound Today N32.81 - Overactive bladder AMB Urinalysis Automated Today Z13.9 - Encounter for screening, unspecified Coding CPT Codes Post Residual Void - PVR CPT Code: 93818-Jifh Void Residual by ultrasound ([id number])
== END 2025-05-11 14:04 | disposition home or self-care (01) ==
LOC: HO.HUSH 13:18
PROVIDERS: PCP Family Medicine; Visit Provider Urology
DX: Z13.9 Encounter for screening, unspecified (principal)

== ENCOUNTER 2025-05-11 13:18 | Outpatient (REF) | payer OTHER, SELFPAY | END 2025-05-11 13:19 | disposition home or self-care (01) | LOC: HO.LAB 13:18 | PROVIDERS: PCP Family Medicine; Visit Provider Urology | DX: N32.81 Overactive bladder (principal); Z13.89 Encounter for screening for other disorder | CPT/HCPCS: 51798; 81003 ==

== ENCOUNTER 2025-05-12 13:16 | Outpatient (REF) | payer OTHER, SELFPAY ==
--- NOTE | ~2025-05-12 | CT_ITS ---
EXAMINATION: CT ABDOMEN PELVIS WITH IV CONTRAST HISTORY: 64 yo F with persistent abdominal pain sp SBO in December 2024, send to [facility] [place] COMPARISON: Previous CT of the abdomen and pelvis most recently December 2024 TECHNIQUE: CT scan of the abdomen and pelvis was performed following administration of 85 mL Omnipaque 350 using standard departmental protocol. Coronal and sagittal reformatted images were generated and reviewed. This CT exam was performed with one or more of the following dose reduction techniques: automated exposure control, adjustment of the mA and/or kV according to patient size, use of iterative reconstruction technique. DLP: 497 mGy-cm FINDINGS: LOWER CHEST: The visualized lung bases are clear. There is no pleural effusion. CARDIOVASCULATURE: The heart is normal in size. There is no pericardial effusion. LIVER: The liver is normal in size and contour. No liver mass is identified. The hepatic and portal veins are patent. GALLBLADDER / BILE DUCTS: Absent gallbladder. No biliary duct dilatation. SPLEEN: The spleen is normal in size. Small calcifications probably related to old granulomatous disease similar to prior exam. No other focal splenic lesion is identified. PANCREAS: The infiltration of the pancreas. The pancreas is otherwise unremarkable in appearance. ADRENAL GLANDS: Within normal limits. KIDNEYS/RETROPERITONEUM: No renal calculi are identified. There is no hydronephrosis. No renal masses are identified. LYMPH NODES: No abdominal or pelvic lymphadenopathy. VASCULATURE: The abdominal aorta is normal in caliber. MESENTERY/PERITONEUM: No free fluid. No masses. There is no free intraperitoneal gas. STOMACH: Normal SMALL BOWEL: The small bowel is normal in caliber. COLON: Severe diverticulosis of the distal colon. No evidence of diverticulitis. APPENDIX: Not seen. No inflammatory changes in the right lower quadrant. URINARY BLADDER/PELVIC ORGANS: The urinary bladder is unremarkable. BONES / SOFT TISSUES: Stable postsurgical changes at L4-5 and L5-S1. Degenerative changes of the spine. Small umbilical hernia containing fat. CT/CT abdomen pelvis w IV con IMPRESSION: Normal caliber small bowel. No evidence of small bowel obstruction. Severe diverticulosis of the distal colon. No evidence of diverticulitis. Electronically signed by: Mercedes Lim MD 05/12/2025 03:46 PM EDT
[2025-05-12] MEDS: Barium Sulfate Oral (Mocha) 450 ML ORAL.SUSP 900 ML PO (15:06)
[2025-05-12] MEDS: iohexoL 350 MG/ML 100 ML INFUS..BTL IV (15:08)
[2025-05-12 15:54] LABS: Creatinine POC 1.5 mg/dL (0.5-1.4); GFR POC 39
== END 2025-05-12 13:17 | disposition home or self-care (01) ==
LOC: HO.CT 13:16
PROVIDERS: PCP Family Medicine; Visit Provider Family Medicine
DX: R10.84 Generalized abdominal pain (principal)
CPT/HCPCS: 74177; 82565; Q9967

== ENCOUNTER → 2025-05-12 13:19 | Outpatient (BNV) | payer OTHER, SELFPAY | PROVIDERS: PCP Family Medicine; Visit Provider Radiology Diagnostic Radiology | DX: K57.30 Diverticulosis of large intestine without perforation or abscess without bleeding (principal) | CPT/HCPCS: 74177 ==

== ENCOUNTER 2025-05-18 13:14 | Outpatient (REF) | payer OTHER, SELFPAY ==
[2025-05-18 13:25] LABS: MANUAL DIFF FLAG NO
[2025-05-18 13:59] LABS: Hematocrit 37.5 % (37.0-47.0); Hemoglobin 12.6 g/dl (12.0-16.0); Imm Gran Abs Auto 0.02 X10*3/uL (0.00-0.03); Imm Gran Pct Auto 0.3 % (0.0-0.4); Lymphocytes Absolute Auto 1.6 X10*3/uL (1.2-4.9); Mean Corpuscular HGB Conc 33.6 g/dl (31.0-35.0); Mean Corpuscular Hemoglobin 31.3 pg (27.0-33.0); Mean Corpuscular Volume 93.3 fL (80.0-98.0); NRBC Abs Auto 0.000 X10*3/uL (0.0-0.012); NRBC Pct Auto 0.0 /100WBC (0.0-0.2); Platelet Count 227 X10*3/uL (160-400); Red Blood Count 4.02 X10*6/uL (4.20-5.50); White Blood Count 7.9 X10*3/uL (4.8-10.8)
[2025-05-18 14:30] LABS: Alanine Aminotransferase 9 U/L (0-31); Albumin Level 4.4 g/dL (3.5-5.0); Alkaline Phosphatase 76 U/L (39-117); Anion Gap 12 (12-20); Aspartate Amino Transferase 15 U/L (5-31); Blood Urea Nitrogen 24 mg/dL (9-16); Calcium 9.2 mg/dL (8.4-10.2); Carbon Dioxide 25 mmol/L (22-29); Chloride 108 mmol/L (96-108); Estimated Glomerular Filt Rate 42; Lipase 14 U/L (8-78); Potassium 3.5 mmol/L (3.3-5.1); Sodium 141 mmol/L (135-145); Total Protein 7.4 g/dL (6.5-8.0)
== END 2025-05-18 13:15 | disposition home or self-care (01) ==
LOC: HO.LAB 13:14
PROVIDERS: PCP Family Medicine; Visit Provider Family Medicine
DX: R10.13 Epigastric pain (principal)
CPT/HCPCS: 36415; 80053; 83690; 85025; 86140

== ENCOUNTER 2025-06-04 14:00 | Outpatient (REF) | payer OTHER, SELFPAY ==
[2025-06-08 15:33] LABS: Anti Nuclear Antibody Screen NEGATIVE (NEGATIVE)
== END 2025-06-04 14:01 | disposition home or self-care (01) ==
LOC: HO.LAB 14:00
PROVIDERS: PCP Family Medicine; Visit Provider Nurse Practitioner
DX: K21.9 Gastro-esophageal reflux disease without esophagitis (principal); K91.5 Postcholecystectomy syndrome; R79.82 Elevated C-reactive protein (CRP); M25.50 Pain in unspecified joint; Z01.84 Encounter for antibody response examination; Z83.719 Family history of colon polyps, unspecified
CPT/HCPCS: 36415; 85652; 86038; 86200; 86431; 99212

== ENCOUNTER 2025-06-04 14:00 | Outpatient (AMB) | payer OTHER, SELFPAY ==
--- NOTE | 2025-06-04 14:35 | MHC.OFFVIS ---
Vital Signs 06/04/25 14:52 Height 5 ft 3 in Weight 175 lb BMI 31.0 BP 108/74 Blood Pressure Location Rt brachial Position Sitting Pulse 80 Intake Visit Reasons: s/p colonoscopy Intake Note: Melissa presents to in office follow up s/p colonoscopy. 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 Accompanied by: Self / Same As Patient Allergies Penicillins (PENICILLINS) Allergy (Intermediate, Verified 06/04/25 15:05) ITCHING sulfamethoxazole (From BACTRIM) Allergy (Intermediate, Verified 06/04/25 15:05) RASH trimethoprim (From BACTRIM) Allergy (Intermediate, Verified 06/04/25 15:05) RASH morphine (Morphine) Allergy (Mild, Verified 06/04/25 15:05) THROAT SWELLING Sulfa (Sulfonamide Antibiotics) Allergy (Mild, Verified 06/04/25 15:05) RASH/HEADACHE oxycodone (Percocet) Allergy (Unknown, Verified 06/04/25 15:05) redness, swelling, itchy Biaxin Allergy (Unknown, Uncoded 04/28/25 06:00) itchy HPI HPI s/p colonoscopy: Details: Assessment & Plan (1) Pre-op examination: Code(s): Z01.818 - Encounter for other preprocedural examination Category: Medical Plan [place] #Sister translates per pt request Patient has not been seen by myself since 2020 apparently is here today for a screening colonoscopy Her last was in 2017 and was negative except for severe tics. There was some initial confusion because they thought she was referred here by Dr. Montelongo for an abnormal rectal Pap. Apparently this was a year ago and Dr. Montelongo could not find any HPV although there were a few abnormal cells on his biopsy. However, she does have a family history of polyps in her 2 brothers and that is likely why her primary care center here. She is quite overdue for screening. She has had some intermittent RUQ pain over the past 2 mos that is transient described as a pressure, denies any CIC or diarrhea and she is s/p tucker. She has GERD but is controlled on her omeprazole. Her asthma is well controlled and not cardiac problems. She has had delayed recovery from general anesthesia but not with GI procedures. She has HIV that is well controlled no other ID problems. Her 2 brothers had colon polyps. Orders: Orders Colonoscopy - GI Use Only Today Z01.818 - Encounter for other preprocedural examination Medications: New peg 3350-electrolytes 236-22.74-6.74 -5.86 gram (Golytely) until fecal effluent is clear; do not exceed a total volume of 2,000 mL 240 mL PO Q10M 1 day 4,000 mL 0RF Z12.11 - Encounter for screening for malignant neoplasm of colon bisacodyl (Dulcolax (bisacodyl)) 10 mg (2 x 5 mg) PO BEDTIME 2 [address] ABD AND PELVIS 05/12/25 FINDINGS: LOWER CHEST: The visualized lung bases are clear. There is no pleural effusion. CARDIOVASCULATURE: The heart is normal in size. There is no pericardial effusion. LIVER: The liver is normal in size and contour. No liver mass is identified. The hepatic and portal veins are patent. GALLBLADDER / BILE DUCTS: Absent gallbladder. No biliary duct dilatation. SPLEEN: The spleen is normal in size. Small calcifications probably related to old granulomatous disease similar to prior exam. No other focal splenic lesion is identified. PANCREAS: The infiltration of the pancreas. The pancreas is otherwise unremarkable in appearance. ADRENAL GLANDS: Within normal limits. KIDNEYS/RETROPERITONEUM: No renal calculi are identified. There is no hydronephrosis. No renal masses are identified. LYMPH NODES: No abdominal or pelvic lymphadenopathy. VASCULATURE: The abdominal aorta is normal in caliber. MESENTERY/PERITONEUM: No free fluid. No masses. There is no free intraperitoneal gas. STOMACH: Normal SMALL BOWEL: The small bowel is normal in caliber. COLON: Severe diverticulosis of the distal colon. No evidence of diverticulitis. APPENDIX: Not seen. No inflammatory changes in the right lower quadrant. URINARY BLADDER/PELVIC ORGANS: The urinary bladder is unremarkable. BONES / SOFT TISSUES: Stable postsurgical changes at L4-5 and L5-S1. Degenerative changes of the spine. Small umbilical hernia containing fat. CT/CT abdomen pelvis w IV con IMPRESSION: Normal caliber small bowel. No evidence of small bowel obstruction. Severe diverticulosis of the distal colon. No evidence of diverticulitis. Laboratory Tests 05/12/25 05/18/25 14:57 13:20 WBC 7.9 Hgb 12.6 Hct 37.5 MCV 93.3 MCH 31.3 Plt Count 227 BUN 24 H Creatinine 1.30 POC GFR 39 Estimated GFR 42 Total Bilirubin 0.7 AST 15 ALT 9 Alkaline Phosphatase 76 C-Reactive Protein 1.21 H Lipase 14 COLONOSCOPY 01/21/25 Findings: Terminal Ileum-normal Cecum:normal Ascending Colon: normal Transverse Colon -normal Descending Colon:normal Sigmoid Colon: moderate diverticulosis Rectum: Retroflexion with small internal hemorrhoids seen, grade I Anorectum - normal Intervention: none Impression and Post Procedure Diagnosis: diverticulosis internal hemorrhoids Plan: High fiber diet leaflet Avoid straining at stool, epsom salts and sitz bath, anusol supps or cream Repeat Colonoscopy in 5 years due to FH of polyps or earlier if clinically indicated BIOPSY none TODAY'S VISIT [place] #[facility] Medical History Essential hypertension Cough OAB (overactive bladder) Diverticular disease History of IBS Diabetes ASCUS of cervix with negative high risk HPV HIV (human immunodeficiency virus infection) Abnormal anal Papanicolaou smear Dyspnea on exertion Surgical History H/O esophagogastroduodenoscopy Hx of colonoscopy Hx of tubal ligation History of carpal tunnel surgery History of back surgery Hx of eye surgery Hx of cholecystectomy Family History Father Stomach cancer Mother Alzheimer disease Type 2 diabetes mellitus Hyperlipidemia Family/Other HTN (hypertension) Sleep apnea Diabetes Maternal Uncle FH: prostate cancer Stomach cancer Alzheimer disease Paternal Uncle Stomach cancer Social History Household Members: None Housing: Apartment Are you a primary health care liaison to a significant other at home: No Do you presently have visiting nurse or other home services: No Alcohol intake: current Alcohol intake frequency: does not drink Patient Tobacco Use Status: Never used Tobacco service: No Review of Systems Const Denies fatigue, Denies fever(s), Denies night sweats, Denies poor appetite and Denies weight loss Eyes Details: glassesa Reports requires corrective lenses ENT Reports Normal hearing present, Denies dental pain, Denies dysphagia, Denies hearing loss, Denies mouth pain, Denies odynophagia, Denies throat swelling, Denies tongue swelling and Reports other (Dentition adequate) Card Reports no additional complaints Resp Reports no additional complaints GI Details: Reports abdominal pain, Denies melena, Denies bloating, Denies hematochezia, Denies constipation, Denies GI cramping, Denies dysphagia, Denies excessive flatus, Denies early satiety, Reports heartburn, Reports diarrhea, Denies nausea, Denies odynophagia, Denies vomiting and Denies hematemesis Reports urinary incontinence and Reports urinary hesitancy Musc Reports back pain, Reports myalgias and Reports arthralgias Skin/Breast Denies pruritus, Denies lesions, Denies rash and Denies jaundice Neuro Reports Normal hearing present and Denies Abnormal speech present Endo Denies fatigue Aller/Immun Denies throat swelling and Denies tongue swelling Physical Exam Vital Signs: Last Vital Signs Pulse 80 06/04/25 14:52 BP 108/74 06/04/25 14:52 BMI result Body Mass Index 31.0 Const General: cooperative, no acute distress, well developed and well groomed Nutritional Appearance: well nourished and obese Orientation/consciousness: oriented to person, oriented to place and oriented to time Limitations: language barrier HEENT Head: Yes normocephalic and Yes atraumatic Eyes General: appearance normal, both eyes and all related structures Pupils: Equal, round and reactive pupils present Neck Neck: Yes normal visual inspection and Yes no lymphadenopathy Thyroid: Thyroid normal Resp Effort & Inspection: normal respiratory effort and able to speak in complete sentences Auscultation: clear to auscultation bilaterally Cardio Rate: regular rate Rhythm: regular rhythm Heart sounds: Normal, physiologic split S2 sound present Peripheral pulses: radial pulses present and posterior tibial pulses present GI Inspection: Yes distended, No Abdominal panniculus present and Yes obesity Palpation (GI): Soft to palpation, nontender, no guarding, not rigid and No hepatosplenomegaly present Percussion: Yes normal to percussion Auscultation: normal bowel sounds Rectal Exam - Female: deferred Skin General skin exam: no rashes or lesions noted, turgor normal, skin not dry, no jaundice, No spider nevi and no striae Rashes: no rashes Nails: normal Neuro General: oriented to person, oriented to place and oriented to time Cranial nerves: Yes Equal, round and reactive pupils present and Yes Normal hearing present Speech: No Abnormal speech present Extrem General: Yes normal to inspection, No clubbing, No cyanosis and No edema Psych Appearance: grossly normal and well kempt Mental Status: mental status grossly normal Speech and movement: Normal speech and movement present Affect: normal affect Attitude: cooperative Thought process: Circumstantial thought process present and not confabulating Thought content: Normal thought content present Insight: Limited insight present (Psych) Judgement: Limited judgement present (Psych) Results Reviewed Results Reviewed: CT ABD AND PELVIS 05/12/25 FINDINGS: LOWER CHEST: The visualized lung bases are clear. There is no pleural effusion. CARDIOVASCULATURE: The heart is normal in size. There is no pericardial effusion. LIVER: The liver is normal in size and contour. No liver mass is identified. The hepatic and portal veins are patent. GALLBLADDER / BILE DUCTS: Absent gallbladder. No biliary duct dilatation. SPLEEN: The spleen is normal in size. Small calcifications probably related to old granulomatous disease similar to prior exam. No other focal splenic lesion is identified. PANCREAS: The infiltration of the pancreas. The pancreas is otherwise unremarkable in appearance. ADRENAL GLANDS: Within normal limits. KIDNEYS/RETROPERITONEUM: No renal calculi are identified. There is no hydronephrosis. No renal masses are identified. LYMPH NODES: No abdominal or pelvic lymphadenopathy. VASCULATURE: The abdominal aorta is normal in caliber. MESENTERY/PERITONEUM: No free fluid. No masses. There is no free intraperitoneal gas. STOMACH: Normal SMALL BOWEL: The small bowel is normal in caliber. COLON: Severe diverticulosis of the distal colon. No evidence of diverticulitis. APPENDIX: Not seen. No inflammatory changes in the right lower quadrant. URINARY BLADDER/PELVIC ORGANS: The urinary bladder is unremarkable. BONES / SOFT TISSUES: Stable postsurgical changes at L4-5 and L5-S1. Degenerative changes of the spine. Small umbilical hernia containing fat. CT/CT abdomen pelvis w IV con IMPRESSION: Normal caliber small bowel. No evidence of small bowel obstruction. Severe diverticulosis of the distal colon. No evidence of diverticulitis. Laboratory Tests 05/12/25 05/18/25 14:57 13:20 WBC 7.9 Hgb 12.6 Hct 37.5 MCV 93.3 MCH 31.3 Plt Count 227 BUN 24 H Creatinine 1.30 POC GFR 39 Estimated GFR 42 Total Bilirubin 0.7 AST 15 ALT 9 Alkaline Phosphatase 76 C-Reactive Protein 1.21 H Lipase 14 COLONOSCOPY 01/21/25 Findings: Terminal Ileum-normal Cecum:normal Ascending Colon: normal Transverse Colon -normal Descending Colon:normal Sigmoid Colon: moderate diverticulosis Rectum: Retroflexion with small internal hemorrhoids seen, grade I Anorectum - normal Intervention: none Impression and Post Procedure Diagnosis: diverticulosis internal hemorrhoids Plan: High fiber diet leaflet Avoid straining at stool, epsom salts and sitz bath, anusol supps or cream Repeat Colonoscopy in 5 years due to FH of polyps or earlier if clinically indicated BIOPSY none Assessment & Plan Assessment & Plan (1) Family history of polyps in the colon: Comment: 04/2025 scope= negative study repeat in 5 years;2 BROTHERS, last scope 2017 repeat 5 years 2021 Code(s): Z83.71 - Family history of colonic polyps Category: Medical (2) GERD (gastroesophageal reflux disease): Code(s): K21.9 - Gastro-esophageal reflux disease without esophagitis Category: Medical (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 She is quite agreeable to a 5 year follow-up. The procedure was well tolerated. The results were explained and the patient is agreeable to the follow-up interval as stated. The bowel pattern has returned to normal. Education was provided to tell any 1st degree relatives about their findings to be sure that they are screened by age 45. Educated that they will be put on a recall list when it is time for their repeat scope but should they move out of state or away from the hospital they will need to remember along with their primary to repeat the procedure in a timely fashion to avoid any adverse complications. She is complaining of generalized abdominal pain that times is in the upper abdomen and at times in the lower. Apparently she presented to her primary care provider who ordered a CAT scan and lab works thinking that it might be related to the pancreas. However her pancreatic enzymes and her CAT scan relatively benign except for some fatty replacement of the pancreas. With further conversation she is relying the fact that she has suddenly started having postprandial diarrhea and her pain generally is worsened when she has this symptom. She never reported this in the past and it is likely that this is simple post cholecystectomy syndrome related to her pancreas not being able to make enzymes as well as she ages. I explained this to her and suggest a trial of cholestyramine and she is agreeable. I also note as she has not elevated CRP. She endorses quite a lot of joint pain so I will do a basic rheumatology workup. Apparently she was seeing an arthritis provider in [place] but it sounds like they were more focused on injection medications then doing a thorough rheumatology workup. She is nearly not satisfied with that clinic. She has also been struggling with incontinence and bladder problems. Because she failed many medications it was decided to do a trial of Botox injections. Unfortunately, she has found that this has greatly inhibited her ability to urinate and she is not happy with this and does not think that she will continue with this modality of treatment. Return office visit in 8 weeks Orders: Orders Erythrocyte Sedimentation Rate Today M25.50 - Pain in unspecified joint, R79.82 - Elevated C-reactive protein (CRP) JULI Reflex Titer and Pattern Today M25.50 - Pain in unspecified joint, R79.82 - Elevated C-reactive protein (CRP) Rheumatoid Factor Today M25.50 - Pain in unspecified joint, R79.82 - Elevated C-reactive protein (CRP) Cyclic Citrullinated Peptide Today M25.50 - Pain in unspecified joint, R79.82 - Elevated C-reactive protein (CRP) Medications: New cholestyramine (Cholestyramine Light) administer w/meal; avoid other meds within 1hr before or 4-6hr after dose 4 grams PO BID 60 ea 6RF K91.5 - Postcholecystectomy syndrome omeprazole 40 mg PO DAILY@0630 PRN 30 caps 6RF gerd Coding Level of Care Code Est Pt Level 4 (84644) Diagnoses Family history of polyps in the colon Z83.71 GERD (gastroesophageal reflux disease) K21.9 Post-cholecystectomy syndrome K91.5 Elevated C-reactive protein (CRP) R79.82 Joint pain M25.50 Time Spent (min) 33
[2025-06-04 14:52] VITALS: BP 108/74; PULSE 80; BMI 31.0
== END 2025-06-04 15:29 | disposition home or self-care (01) ==
LOC: HO.HGI 14:00
PROVIDERS: PCP Family Medicine; Visit Provider Nurse Practitioner
DX: Z83.719 Family history of colon polyps, unspecified (principal); K21.9 Gastro-esophageal reflux disease without esophagitis; K91.5 Postcholecystectomy syndrome; R79.82 Elevated C-reactive protein (CRP); M25.50 Pain in unspecified joint
CPT/HCPCS: 99214